=== PATIENT | female | born 1975 | race Caucasian/White ===

== ENCOUNTER 2022-01-07 21:53 | Observation (INO) ==
[2022-01-07] MEDS ORDERED: LORazepam 2 MG/1 ML VIAL IV STA (22:13)
[2022-01-07] MEDS ORDERED: ASPIRIN CHEW 324 MG PO STA (22:13)
[2022-01-07 22:16] LABS: Basophils # (auto) 0.04 K/uL (0-0.2); Basophils % (auto) 0.5 %; Eosinophils # (auto) 0.11 K/uL (0-0.50); Eosinophils % (auto) 1.3 %; Hematocrit (blood only) 37.8 % (34.1-44.9); Hemoglobin 12.9 g/dl (12.0-16.0); Immature Granulocytes # (auto) 0.03 K/uL (0.00-0.02); Immature Granulocytes % (auto) 0.3 %; Lymphocytes # (auto) 3.41 K/uL (1.2-3.4); Lymphocytes % (auto) 39.2 %; Mean Corpuscular Hemoglobin 33.1 pg (25.0-34.0); Mean Corpuscular Hgb Conc 34.1 g/dL (32.0-36.0); Mean Corpuscular Volume 96.9 fL (80.0-100.0); Mean Platelet Volume 10.1 fL (9.4-12.3); Monocytes # (auto) 0.43 K/uL (0.24-0.82); Monocytes % (auto) 4.9 %; Neutrophils # (auto) 4.69 K/uL (1.4-6.5); Neutrophils % (auto) 53.8 %; Platelet Count 295 K/uL (130-400); RDW Coefficient of Variation 12.5 % (11.5-14.5); RDW Standard Deviation 44.1 fL (36.4-46.3); White Blood Count 8.71 K/ul (4.8-10.8)
--- NOTE | 2022-01-07 22:27 | XRay Report ---
SINGLE VIEW CHEST CLINICAL HISTORY: Atypical chest pain. FINDINGS: An AP, portable, upright chest radiograph is compared to study dated 06/14/2021. The cardio mediastinal silhouette is unremarkable. The lungs and pleural spaces are clear. No pneumothorax is se en. The bony thorax is grossly intact. IMPRESSION: No active disease in the chest. ACT 112: Negative or not required by law. Electronically signed by: Germán Zhang M.D. 01/07/2022 10:25 PM
[2022-01-07 22:29] LABS: Partial Thromboplastin Ratio 0.8; Prothrombin Time 10.9 Seconds (9.0-12.0)
[2022-01-07 22:34] LABS: iSTAT Creatinine 0.7 mg/dl (0.6-1.3); iSTAT Hemoglobin 12.9 g/dl (12.0-16.0); iSTAT Ionized Calcium 1.19 mmol/l (1.12-1.32); iSTAT Potassium 3.2 mmol/L (3.3-5.0)
[2022-01-07] MEDS ORDERED: OPTIRAY 320 125ml IV ONE (22:36)
[2022-01-07 22:39] LABS: Albumin Globulin Ratio 1.5 (0.9-2); Albumin Level 4.5 gm/dl (3.4-5.0); BUN Creatinine Ratio 24.4 (10-20); Bilirubin,Total 0.6 mg/dl (0.2-1.0); Calcium 8.7 mg/dl (8.5-10.1); Creatinine Clr Calc Pharmacy 99.5 ml/min; Est GFR (African American) 104.9 ml/min; Est GFR (Non-African American) 90.5 ml/min; Globulin 3.1 gm/dl (2.5-4.0); Total Protein 7.6 gm/dl (6.0-8.3)
[2022-01-07 22:45] LABS: Troponin I High Sensitivity 3.5 pg/ml (0-14)
--- NOTE | 2022-01-07 22:48 | CT Scan Report ---
CT angio chest PE protocol CLINICAL HISTORY: PE, recent covid, CP TECHNIQUE: Multidetector row helical CT of the chest was performed with angiographic protocol. Meyers l and sagittal reformations were obtained. Coronal and sagittal MIPS were obtained from the axial jude a set and were submitted for review. Automated dose lowering techniques and/or adjustment according to patient size were utilized for this exam. CT DOSE: 636.00 mGy.cm Comparison: Comparison is made to CT chest 12/13/2021 FINDINGS: Lungs and pleura: Atelectasis versus scarring is seen in the dependent portions of the lungs. Heart and pericardium: There is cardiomegaly without evidence of pericardial effusion. Vessels: No evidence of pulmonary embolism. Mediastinum and zoe: Unremarkable. Chest wall and lower neck: Subcentimeter thyroid nodules are noted which do not require follow-up by ACR criteria. Abdomen: Hepatic steatosis is noted. Bones: Unremarkable. IMPRESSION: 1. No evidence of pulmonary embolism. 2. No evidence of pneumonia. 3. Hepatic steatosis. ACT 112: Negative or not required by law. Electronically signed by: Jama Flores M.D. 01/07/2022 10:46 PM
[2022-01-07] MEDS ORDERED: MoRPHine SULFATE 4 MG/ML 1 ML CARP\\VIAL IV STA ×2 (23:15→23:51)
[2022-01-07] MEDS ORDERED: ONDANSETRON INJ 2 MG/ML 2 ML VIAL IV STA (23:15)
[2022-01-07] MEDS ORDERED: POTASSIUM CHLORIDE 10 MEQ TABCR PO STA (23:16)
[2022-01-08] MEDS ORDERED: MoRPHine SULFATE 4 MG/ML 1 ML CARP\\VIAL IV STA (01:03)
[2022-01-08] MEDS ORDERED: oxyCODONE IR HOME PACK PO ONE (01:04)
[2022-01-08] MEDS ORDERED: HYDROmorphone INJ 1 MG/ML SYRINGE IV STA (01:12)
[2022-01-08] MEDS ORDERED: dexAMETHasone**PF** 10 MG/ML VIAL IV ONE (01:37)
--- NOTE | 2022-01-08 01:38 | Emergency Department Note ---
History of Present Illness General Chief complaint: Chest Pain Stated complaint: POSSIBLE HEART ATTACK History of Present Illness Maximum Pain Intensity: 10 This 46-year-old that had COVID a month ago presents to the ER complaining of chest pain that goes to her back today Location: Chest Quality: Painful Severity: Severe Duration: Today Timing: Today Context: Patient was concerned and came in Modifying factors: better with nothing; worse with activity No prior heart attack. There is heart disease in the family. She does not smoke. She states this feels worse than her costochondritis. Patient denies abdominal pain, leg pain or swelling, fever, chills, flulike illness. Home Medications Medication Instructions Recorded Confirmed Type linaclotide 290 mcg capsule 290 mcg PO DAILY PRN Constipation 09/23/20 01/08/22 History (Linzess) quetiapine 100 mg tablet (Seroquel) 200 mg PO HS 09/23/20 01/08/22 History vit no.95-ferrous 1 tab PO DAILY 06/15/21 01/08/22 History fumarate 28 mg-folic acid 800 mcg tablet () sumatriptan succinate 50 mg tablet 50 mg PO DIRECTED PRN Migraine 06/15/21 01/08/22 History Headache acetaminophen 500 mg tablet 1,000 mg PO DAILY PRN Pain 12/14/21 01/08/22 History dextroamphetamine-amphetamine ER 20 mg PO QAM 12/14/21 01/08/22 History 20 mg 24hr capsule,extend release famotidine 20 mg tablet 20 mg PO BID PRN Gastric Reflux 12/14/21 01/08/22 History meloxicam 7.5 mg tablet 15 mg PO QAM PRN Pain 12/14/21 01/08/22 History Allergies Allergy/AdvReac Type Severity Reaction Status Date / Time ketorolac [From Toradol] Allergy Hives Verified 01/07/22 23:30 Past Med/Surg History Medical History No acute medical problems Surgical History No pertinent past surgical history Social History Smoking Status: Never smoker Tobacco Type: E-cigarettes / Vaping Preferred Language: Pashto Feels Safe at Home: Yes Review of Systems A total of 10 systems reviewed and were otherwise negative Physical Exam Vital Signs Vital Signs - 24 hr 01/07/22 21:55 01/07/22 21:59 01/07/22 22:06 Temperature 36.7 C Temperature Source Oral Pulse Rate 109 H Pulse Rate [Right Finger] Pulse Rhythm [Right Finger] Pulse Strength [Right Finger] Respiratory Rate 24 Respiratory Effort / Characteristics Short of Breath Respiratory Depth Normal Shallow Blood Pressure 137/115 H Blood Pressure [Right Arm] Blood Pressure Mean 122 Blood Pressure Mean [Right Arm] Blood Pressure Position [Right Arm] Pulse Oximetry 97 Oxygen Delivery Method Room Air Room Air Sepsis Recent Fever Within 48 Hours No Sepsis New/Unexplained Change in Mental Status N/A Sepsis Action Taken by Nursing No Action Required Pulse Oximetry Post Tiitration 01/07/22 22:06 01/07/22 22:08 01/07/22 22:08 Temperature Temperature Source Pulse Rate Pulse Rate [Right Finger] 100 H Pulse Rhythm [Right Finger] Pulse Strength [Right Finger] Respiratory Rate 25 H Respiratory Effort / Characteristics Labored Respiratory Depth Normal Blood Pressure Blood Pressure [Right Arm] 137/96 Blood Pressure Mean Blood Pressure Mean [Right Arm] 109 Blood Pressure Position [Right Arm] Pulse Oximetry 99 98 Oxygen Delivery Method Room Air Room Air Room Air Sepsis Recent Fever Within 48 Hours Sepsis New/Unexplained Change in Mental Status Sepsis Action Taken by Nursing Pulse Oximetry Post Tiitration 98 01/07/22 23:12 01/07/22 23:45 01/08/22 00:43 Temperature Temperature Source Pulse Rate Pulse Rate [Right Finger] 93 H 101 H 91 H Pulse Rhythm [Right Finger] Regular Regular Regular Pulse Strength [Right Finger] Normal Normal Normal Respiratory Rate 20 16 20 Respiratory Effort / Characteristics Non-Labored Non-Labored Spontaneous Non-Labored Spontaneous Respiratory Depth Normal Normal Normal Blood Pressure Blood Pressure [Right Arm] 222/167 H 142/121 H 172/145 H Blood Pressure Mean Blood Pressure Mean [Right Arm] 185 128 154 Blood Pressure Position [Right Arm] Pulse Oximetry 98 96 97 Oxygen Delivery Method Room Air Room Air Room Air Sepsis Recent Fever Within 48 Hours Sepsis New/Unexplained Change in Mental Status Sepsis Action Taken by Nursing Pulse Oximetry Post Tiitration 01/08/22 01:23 Temperature Temperature Source Pulse Rate Pulse Rate [Right Finger] 87 Pulse Rhythm [Right Finger] Regular Pulse Strength [Right Finger] Normal Respiratory Rate 16 Respiratory Effort / Characteristics Non-Labored Spontaneous Respiratory Depth Normal Blood Pressure Blood Pressure [Right Arm] 132/94 Blood Pressure Mean Blood Pressure Mean [Right Arm] 106 Blood Pressure Position [Right Arm] Lying Pulse Oximetry 96 Oxygen Delivery Method Room Air Sepsis Recent Fever Within 48 Hours Sepsis New/Unexplained Change in Mental Status Sepsis Action Taken by Nursing Pulse Oximetry Post Tiitration VITALS: Vitals are noted on the nurse's note and reviewed by myself. Vital signs hypertensive GENERAL: Female, in no acute distress, nondiaphoretic, well-developed well- nourished. SKIN: The skin was without rashes, erythema, edema, or bruising. There is no tenting of the skin. Capillary reflex less than 2 seconds. HEAD: Normocephalic atraumatic. EARS: External auditory canals clear, EYES: Pupils equal round and reactive to light and accommodation. Conjunctivae without injection, sclerae without icterus. Extraocular movements intact. NOSE: Patent, turbinates without inflammation or discharge. MOUTH: Mucous membranes moist. Pharynx without erythema or exudate. Uvula midline. Airway patent. Tongue does not deviate. NECK: Supple without nuchal rigidity. No lymphadenopathy. No thyromegaly. Cervical spine is nontender. No JVD. HEART: Regular rate and rhythm LUNGS: Clear to auscultation bilaterally without wheezes, rales or rhonchi. No retractions or accessory muscle use. ABDOMEN: Positive bowel sounds x 4. Normal tympanic percussion. Soft, nontender, without masses or organomegaly. Lazo sign negative. No guarding or rebound tenderness. No CVA tenderness MUSCULOSKELETAL: No muscle atrophy, erythema, or edema noted. NEURO: Patient was alert and oriented to person place and time. Normal sensation to light and sharp touch. No focal neurological deficits. Course Administered Medications Discontinued Medications Aspirin (Aspirin Chew 324 Mg) 324 mg PO NOW STA Stop: 01/07/22 22:14 Last Admin: 01/07/22 22:24 Dose: 324 mg Documented By: MES Hydromorphone HCl (Hydromorphone Inj 1 Mg/Ml Syringe) 1 mg IV NOW STA Stop: 01/08/22 01:13 Last Admin: 01/08/22 01:17 Dose: 1 mg Documented By: TW Ioversol (Optiray 320 125ml) 120 ml IV ONCE ONE Stop: 01/07/22 22:37 Last Admin: 01/07/22 22:34 Dose: 120 ml Documented By: SHAWN Lorazepam (Lorazepam 2 Mg/1 Ml Vial) 1 mg IV NOW STA; Protocol Stop: 01/07/22 22:14 Last Admin: 01/07/22 22:25 Dose: 1 mg Documented By: NADEGE Morphine Sulfate (Morphine Sulfate 4 Mg/Ml 1 Ml Carp\Vial) 4 mg IV NOW STA Stop: 01/07/22 23:16 Last Admin: 01/07/22 23:23 Dose: 4 mg Documented By: TW Morphine Sulfate (Morphine Sulfate 4 Mg/Ml 1 Ml Carp\Vial) 4 mg IV NOW STA Stop: 01/07/22 23:52 Last Admin: 01/08/22 00:02 Dose: 4 mg Documented By: TW Ondansetron HCl (Ondansetron Inj 2 Mg/Ml 2 Ml Vial) 4 mg IV NOW STA Stop: 01/07/22 23:16 Last Admin: 01/07/22 23:23 Dose: 4 mg Documented By: TW Potassium Chloride (Potassium Chloride 10 Meq Tabcr) 40 meq PO NOW STA Stop: 01/07/22 23:17 Last Admin: 01/07/22 23:23 Dose: 40 meq Documented By: LACHO Medical Decision Making Medical Records Attestation: I reviewed the patient's medical records. Home Medications Current Medication List: was personally reviewed by me Laboratory Data Attestation: I reviewed the patient's lab results. Result diagrams: 01/07/22 22:03 01/07/22 22:03 Lab Results 01/07/22 01/07/22 01/07/22 Range/Units 22:03 22:03 22:03 WBC 8.71 (4.8-10.8) K/ul RBC 3.90 L (3.93-5.22) M/uL Hgb 12.9 (12.0-16.0) g/dl POC Hgb (12.0-16.0) g/dl Hct 37.8 (34.1-44.9) % POC Hct (37-47) % MCV 96.9 (80.0-100.0) fL MCH 33.1 (25.0-34.0) pg MCHC 34.1 (32.0-36.0) g/dL RDW Std Deviation 44.1 (36.4-46.3) fL RDW Coeff of Pattie 12.5 (11.5-14.5) % Plt Count 295 (130-400) K/uL MPV 10.1 (9.4-12.3) fL Immature Gran % (Auto) 0.3 % Neut % (Auto) 53.8 % Lymph % (Auto) 39.2 % Ballard % (Auto) 4.9 % Eos % (Auto) 1.3 % Baso % (Auto) 0.5 % Neut # (Auto) 4.69 (1.4-6.5) K/uL Lymph # (Auto) 3.41 H (1.2-3.4) K/uL Ballard # (Auto) 0.43 (0.24-0.82) K/uL Eos # (Auto) 0.11 (0-0.50) K/uL Baso # (Auto) 0.04 (0-0.2) K/uL Immature Gran # (Auto) 0.03 H (0.00-0.02) K/uL PT 10.9 (9.0-12.0) Seconds INR 1.0 (0.9-1.1) APTT 23.0 (21.0-31.0) Seconds PTT Ratio 0.8 POC Sodium (135-144) mmol/L Sodium 138 (136-145) mmol/L POC Potassium (3.3-5.0) mmol/L Potassium 3.0 L (3.5-5.1) mmol/L POC Chloride (101-112) mmol/L Chloride 105 (98-107) mmol/L Carbon Dioxide 26 (21-32) mmol/L POC Total CO2 (24-31) mmol/L Anion Gap 7 (3-11) POC Anion Gap (16-25) mmol/L POC BUN (7-18) mg/dl BUN 19 (6-23) mg/dl Creatinine 0.78 (0.6-1.2) mg/dl POC Creatinine (0.6-1.3) mg/dl Est Cr Clr Drug Dosing 99.5 ml/min Est GFR ( Amer) 104.9 ml/min Est GFR (Non-Af Amer) 90.5 ml/min BUN/Creatinine Ratio 24.4 H (10-20) Glucose 87 (70-99(Fasting)) mg/dl POC Glucose (other) (70-99) mg/dl Calcium 8.7 (8.5-10.1) mg/dl POC Ioniz Calcium Daphne (1.12-1.32) mmol/l Magnesium (1.7-2.4) mg/dl Total Bilirubin 0.6 (0.2-1.0) mg/dl AST 35 (13-39) U/L ALT 38 (7-52) U/L Alkaline Phosphatase 79 (34-104) U/L Troponin I High Sens 3.5 (0-14) pg/ml Total Protein 7.6 (6.0-8.3) gm/dl Albumin 4.5 (3.4-5.0) gm/dl Globulin 3.1 (2.5-4.0) gm/dl Albumin/Globulin Ratio 1.5 (0.9-2) 01/07/22 01/07/22 01/08/22 Range/Units 22:03 22:21 00:07 WBC (4.8-10.8) K/ul RBC (3.93-5.22) M/uL Hgb (12.0-16.0) g/dl POC Hgb 12.9 (12.0-16.0) g/dl Hct (34.1-44.9) % POC Hct 38 (37-47) % MCV (80.0-100.0) fL MCH (25.0-34.0) pg MCHC (32.0-36.0) g/dL RDW Std Deviation (36.4-46.3) fL RDW Coeff of Pattie (11.5-14.5) % Plt Count (130-400) K/uL MPV (9.4-12.3) fL Immature Gran % (Auto) % Neut % (Auto) % Lymph % (Auto) % Ballard % (Auto) % Eos % (Auto) % Baso % (Auto) % Neut # (Auto) (1.4-6.5) K/uL Lymph # (Auto) (1.2-3.4) K/uL Ballard # (Auto) (0.24-0.82) K/uL Eos # (Auto) (0-0.50) K/uL Baso # (Auto) (0-0.2) K/uL Immature Gran # (Auto) (0.00-0.02) K/uL PT (9.0-12.0) Seconds INR (0.9-1.1) APTT (21.0-31.0) Seconds PTT Ratio POC Sodium 140 (135-144) mmol/L Sodium (136-145) mmol/L POC Potassium 3.2 L (3.3-5.0) mmol/L Potassium (3.5-5.1) mmol/L POC Chloride 103 (101-112) mmol/L Chloride (98-107) mmol/L Carbon Dioxide (21-32) mmol/L POC Total CO2 25 (24-31) mmol/L Anion Gap (3-11) POC Anion Gap 17.0 (16-25) mmol/L POC BUN 19 H (7-18) mg/dl BUN (6-23) mg/dl Creatinine (0.6-1.2) mg/dl POC Creatinine 0.7 (0.6-1.3) mg/dl Est Cr Clr Drug Dosing ml/min Est GFR ( Amer) ml/min Est GFR (Non-Af Amer) ml/min BUN/Creatinine Ratio (10-20) Glucose (70-99(Fasting)) mg/dl POC Glucose (other) 86 (70-99) mg/dl Calcium (8.5-10.1) mg/dl POC Ioniz Calcium Daphne 1.19 (1.12-1.32) mmol/l Magnesium 1.7 (1.7-2.4) mg/dl Total Bilirubin (0.2-1.0) mg/dl AST (13-39) U/L ALT (7-52) U/L Alkaline Phosphatase (34-104) U/L Troponin I High Sens 3.6 (0-14) pg/ml Total Protein (6.0-8.3) gm/dl Albumin (3.4-5.0) gm/dl Globulin (2.5-4.0) gm/dl Albumin/Globulin Ratio (0.9-2) Imaging Data Attestation: I personally reviewed and interpreted this imaging study as fo llows: Radiologist's Impression: Chest X-Ray 01/07/22 22:01 SINGLE VIEW CHEST CLINICAL HISTORY: Atypical chest pain. FINDINGS: An AP, portable, upright chest radiograph is compared to study dated 06/14/2021. The cardiomediastinal silhouette is unremarkable. The lungs and pleural spaces are clear. No pneumothorax is seen. The bony thorax is grossly intact. IMPRESSION: No active disease in the chest. ACT 112: Negative or not required by law. Electronically signed by: Germán Zhang M.D. 01/07/2022 10:25 PM Chest CTA 01/07/22 22:13 CT angio chest PE protocol CLINICAL HISTORY: PE, recent covid, CP TECHNIQUE: Multidetector row helical CT of the chest was performed with angiographic protocol. Coronal and sagittal reformations were obtained. Coronal and sagittal MIPS were obtained from the axial data set and were submitted for review. Automated dose lowering techniques and/or adjustment according to patient size were utilized for this exam. CT DOSE: 636.00 mGy.cm Comparison: Comparison is made to CT chest 12/13/2021 FINDINGS: Lungs and pleura: Atelectasis versus scarring is seen in the dependent portions of the lungs. Heart and pericardium: There is cardiomegaly without evidence of pericardial effusion. Vessels: No evidence of pulmonary embolism. Mediastinum and zoe: Unremarkable. Chest wall and lower neck: Subcentimeter thyroid nodules are noted which do not require follow-up by ACR criteria. Abdomen: Hepatic steatosis is noted. Bones: Unremarkable. IMPRESSION: 1. No evidence of pulmonary embolism. 2. No evidence of pneumonia. 3. Hepatic steatosis. ACT 112: Negative or not required by law. Electronically signed by: Jama Flores M.D. 01/07/2022 10:46 PM [facility] Narrative Prior records/ancillary studies reviewed. Triage Nursing notes reviewed. Additional history obtained from nursing. The patient's history was concerning for chest pain. Differential diagnosis: Etiologies such as cardiac ischemia, aortic dissection, pulmonary embolism, pneumonia, pneumothorax, musculoskeletal, infections, pericarditis, myocarditis, esophageal rupture, gastrointestinal, as well as others were entertained. Physical examination: As above. ER treatment provided: An order was placed for continuous cardiac monitoring. The monitor shows a rate of 60-1 50 with a sinus rhythm. Ativan, aspirin, morphine, Dilaudid, Decadron, IV fluids On reassessment the patient felt better. Diagnostic interpretation by me: The electrocardiogram was negative for pathologic change. Ordered for chest pain EKG: Normal sinus, normal intervals, no acute ST-T wave changes. Impression sinus tachycardia 105 interpreted by myself I think arrhythmia is unlikely. EKG shows normal sinus rhythm with no interval abnormalities such as QT prolongation or WPW. There are no findings to suggest Brugada syndrome. Cardiac monitoring in the emergency department reveals no tachycardic or bradycardic dysrhythmia. Hypertrophic cardiomyopathy was considered but there are no clear historical elements pointing toward this. EKG is not suggestive. The QRS voltage is not extremely large and there are no suggestive Q waves. The labs revealed 2 negative troponins Imaging studies: As above HEART SCORE: Hx: high/mod/low suspicion: 0 ECG: ST depression/nonspecific changes/normal: 0 Age: Greater than 65/45-64/less than 45: 1 Risk factors: (Hypertension, hyperlipidemia, diabetes, coronary disease, tobacco use, cocaine use): 0 Troponin: Greater than 2 times normal limits/1-2 times normal limits/normal: 0 Total: 1 Consultation: A consultation was placed with the hospitalist. The case was discussed and diagnostics were reviewed. The patient was evaluated in the ER for further treatment. Exam and history seem consistent with chest pain unlikely be cardiac in etiology with intractable chest pain. Patient's had multiple rounds of pain meds she still in severe pain. Medicine is consulted. She will be evaluated for admission. By the evaluation outlined above emergent etiologies such as cardiac ischemia, aortic dissection, pulmonary embolism, pneumonia, pneumothorax, infections, pericarditis, myocarditis, gastrointestinal, as well as others were deemed relatively unlikely. The pt informed about the findings as listed above. All questions were answered. The chart was completed utilizing [employer] Speech voice recognition software. Grammatical errors, random word insertions, pronoun errors, and incomplete sentences are an occassional consequence of this system due to software limitations, ambient noise, and hardware issues. Any formal questions or concerns about the content, text, or information contained within the body of this dictation should be directly addressed to the physician payroll and benefits assistant for clarification. Impression & Plan Chest pain Discharge Plan Visit Data Chief Complaint: Chest Pain Stated Complaint: POSSIBLE HEART ATTACK ED Provider: Ricky Camp ED Midlevel Provider: Carmen Alejandra Discharge Problem: Chest pain Patient Disposition: Being Evaluated by Hospitalist Condition: Good Forms Stand Alone Forms: [facility] Prescriptions Prescriptions: No Action sumatriptan succinate 50 mg tablet 50 mg PO DIRECTED MDD 2 DOSES/24 HOURS PRN (Reason: Migraine Headache) Rx Instructions: TAKE AT ONSET OF FOSTER, MAY REPEAT EVERY 2 HOURS IF NEEDED, MAX 2 DOSES IN 24 HOURS. PNV cmb#95-ferrous fumarate-FA [] 28 mg iron- 800 mcg Tablet 1 tab PO DAILY quetiapine [Seroquel] 100 mg tablet 200 mg PO HS Linzess 290 mcg capsule 290 mcg PO DAILY PRN (Reason: Constipation) dextroamphetamine-amphetamine 20 mg capsule,extended release 24hr 20 mg PO QAM acetaminophen [Tylenol Ex Str Rapid Release] 500 mg Tablet 1,000 mg PO DAILY PRN (Reason: Pain) meloxicam 7.5 mg tablet 15 mg PO QAM PRN (Reason: Pain) famotidine 20 mg tablet 20 mg PO BID PRN (Reason: Gastric Reflux) Referrals Referrals: Apolinar Rice MD [Primary Care Provider] -
[2022-01-08] MEDS ORDERED: ONDANSETRON INJ 2 MG/ML 2 ML VIAL ONE (02:00)
[2022-01-08] MEDS ORDERED: ONDANSETRON INJ 2 MG/ML 2 ML VIAL IV STA (02:27)
[2022-01-08] MEDS ORDERED: ONDANSETRON INJ 2 MG/ML 2 ML VIAL IV PRN (05:12)
[2022-01-08] MEDS ORDERED: FAMOTIDINE 20 MG TAB PO PRN (05:12)
[2022-01-08] MEDS ORDERED: SUMAtriptan succinate 50 MG TAB PO PRN (05:12)
[2022-01-08] MEDS ORDERED: ACETAMINOPHEN 325 MG TAB PO PRN (05:12)
[2022-01-08] MEDS ORDERED: NITROGLYCERIN SL 0.4 MG/TAB TAB SL PRN (05:12)
[2022-01-08] MEDS ORDERED: LINACLOTIDE 145 MCG CAPSULE PO PRN (05:45)
[2022-01-08] MEDS: MoRPHine SULFATE 4 MG/ML 1 ML CARP\\VIAL IV PRN ×3 (06:00→12:50)
[2022-01-08 06:54] LABS: Basophils # (auto) 0.02 K/uL (0-0.2); Basophils % (auto) 0.2 %; Eosinophils # (auto) 0.01 K/uL (0-0.50); Eosinophils % (auto) 0.1 %; Hematocrit (blood only) 36.1 % (34.1-44.9); Hemoglobin 12.3 g/dl (12.0-16.0); Immature Granulocytes # (auto) 0.03 K/uL (0.00-0.02); Immature Granulocytes % (auto) 0.4 %; Lymphocytes # (auto) 0.92 K/uL (1.2-3.4); Lymphocytes % (auto) 11.1 %; Mean Corpuscular Hemoglobin 32.5 pg (25.0-34.0); Mean Corpuscular Hgb Conc 34.1 g/dL (32.0-36.0); Mean Corpuscular Volume 95.5 fL (80.0-100.0); Mean Platelet Volume 10.2 fL (9.4-12.3); Monocytes # (auto) 0.12 K/uL (0.24-0.82); Monocytes % (auto) 1.5 %; Neutrophils # (auto) 7.17 K/uL (1.4-6.5); Neutrophils % (auto) 86.7 %; Platelet Count 292 K/uL (130-400); RDW Coefficient of Variation 12.5 % (11.5-14.5); RDW Standard Deviation 43.8 fL (36.4-46.3); Red Blood Count 3.78 M/uL (3.93-5.22); White Blood Count 8.27 K/ul (4.8-10.8)
--- NOTE | 2022-01-08 07:02 | History and Physical Report ---
DATE OF ADMISSION: 01/08/2022. CHIEF COMPLAINT: Chest pain. HISTORY OF PRESENT ILLNESS: This is a 46-year-old female with past medical history significant for chronic constipation, migraine variant, generalized anxiety disorder, panic disorder, chronic insomnia, ADHD, tobacco abuse, who presents with chest pain. The patient states that since the morning she is having severe chest pain all over the chest radiating to the back, shoulder, neck, associated with some nausea and had one episode of vomiting in the ER. In the ER, she received several pain medications, still the pain is significant. When she is getting this pain, she is feeling short of breath. She had COVID on 12/15/2021, but she was not hospitalized, but felt very weak. Has some mild headache. No blurred visions, no earache, no runny nose, no sore throat. Has some occasional cough. No abdominal pain. Somewhat constipated. Normal bladder movements. Otherwise, ambulates okay. Currently, resting comfortably and hemodynamically stable. ALLERGIES: TORADOL. PAST MEDICAL HISTORY: As mentioned above. PAST SURGICAL HISTORY: , bilateral elbow arthroscopy, laparoscopic exploration of common duct. MEDICATIONS: The patient is on Tylenol extended release 1000 mg p.o. daily p.r.n., Adderall XR 20 mg p.o. a.m., famotidine 20 mg p.o. b.i.d. p.r.n., Linzess 290 mcg p.o. daily p.r.n., meloxicam 15 mg p.o. a.m. p.r.n., one tablet p.o. daily, Seroquel 200 mg p.o. at bedtime, sumatriptan p.r.n. FAMILY HISTORY: Significant for father had COPD, mother had COPD, sister has hypertension. SOCIAL HISTORY: Former smoker, quit in April 2021. Smoked quarter pack a day. No alcohol use. No drug use. REVIEW OF SYSTEMS: As per HPI. Rest of the review of systems is negative. PHYSICAL EXAMINATION: GENERAL: The patient is obese, not in acute distress. VITAL SIGNS: Temperature 36.7, pulse 96, respiratory rate 20, blood pressure 137/105, oxygen 96% on room air. HEENT: Pupils equal, round, and reactive to light. Oral mucosa moist. NECK: No JVD. No neck masses. CARDIOVASCULAR: S1 and S2 heard. Regular rate and rhythm. No murmur, no gallop. RESPIRATORY SYSTEM: Normal AP diameter. No accessory muscle use. No wheezing, no crackles. ABDOMEN: Soft, bowel sounds present, nontender, no distention. CENTRAL NERVOUS SYSTEM: Cranial nerves II-XII grossly intact, nonfocal. EXTREMITIES: No edema, no erythema. LABORATORY DATA: WBC 8.7, hemoglobin 12.9, hematocrit 37.8, platelets 295. PT 10.9, INR 1, APTT 23. Sodium 138, potassium 3, chloride 105, bicarbonate 26, BUN 19, creatinine 0.7, serum glucose 87, calcium 8.7, magnesium 1.7, total bilirubin 0.6, AST 35, ALT 38, alkaline phosphatase 79. Troponin 1 high sensitivity 3.6. IMAGING DATA: CT of the chest, no acute findings, hepatic steatosis. EKG: Sinus tachycardia at a rate of 105, no acute ST changes seen. ASSESSMENT AND PLAN: This is a 46-year-old female who presents with chest pain. 1. Chest pain: Rule out acute coronary syndrome. Risk factor of obesity. History of tobacco use. Initial workup negative. Will observe in the [facility] tele. Will follow serial enzymes, echo. Keep her n.p.o. until seen by cardiology. 2. History of constipation: Continue her home medication of Linzess. 3. Attention deficit hyperactivity disorder: Continue her Adderall. 4. Panic disorder and generalized anxiety disorder: On Seroquel. 5. Migraine: On sumatriptan p.r.n. 6. Deep venous thrombosis prophylaxis: Sequential compression devices. DISPOSITION: Observation in [facility] tele. PT/OT prior to discharge. Social service to help with discharge planning. Level 1 full code. Job ID: [id number] [facility]
[2022-01-08 07:25] LABS: BUN Creatinine Ratio 26.4 (10-20); Calcium 9.1 mg/dl (8.5-10.1); Creatinine Clr Calc Pharmacy 107.8 ml/min; Est GFR (African American) 115.6 ml/min; Est GFR (Non-African American) 99.7 ml/min; Magnesium 1.9 mg/dl (1.7-2.4); Troponin I High Sensitivity 3.7 pg/ml (0-14)
[2022-01-08] MEDS ORDERED: ACETAMINOPHEN 1000 MG/100 ML IV IV ONE (08:37)
[2022-01-08] MEDS ORDERED: PERFLUTREN LIPID MICROSPHERE (DEFINITY) IV ONE (08:44)
--- NOTE | 2022-01-08 09:44 | Electrocardiogram Report ---
Test Reason : Blood Pressure : / mmHG Vent. Rate : 105 BPM Atrial Rate : 105 BPM P-R Int : 138 ms QRS Dur : 082 ms QT Int : 344 ms P-R-T Axes : 020 014 031 degrees QTc Int : 454 ms Sinus tachycardia Otherwise normal ECG When compared with ECG of 13-DEC-2021 19:59, Criteria for Septal infarct are no longer Present Confirmed by Camden Romero ([id number]) on 01/08/2022 9:44:32 AM Referred By: REFERRED SELF Confirmed By:Camden Romero
[2022-01-08] MEDS: AMPHETAMINE ASP/SULF/DEXTRAMPH ER 20 MG CAP PO SCH (09:54)
[2022-01-08] MEDS: PRENATAL VITAMIN 1 TAB PO SCH (09:54)
[2022-01-08] MEDS ORDERED: ATROPINE SULFATE 0.1 MG/ML 10ML SYR IV ONE ×2 (11:31→11:32)
[2022-01-08] MEDS ORDERED: DOBUTamine HCL 12.5 MG/ML 20 ML VIAL IV ONE (11:32)
[2022-01-08] MEDS ORDERED: METOPROLOL TARTRATE 1 MG/ML VIAL IV ONE (11:32)
--- NOTE | 2022-01-08 12:22 | Cardiology Consultation ---
Date of Consultation January 08, 2022 Assessment & Plan (1) Costochondritis: (2) Chest pain: Plan Her ischemic work-up was unremarkable with a negative dobutamine stress echocardiogram. Resting echocardiogram is also unremarkable. Given the fact that her pain is reproducible I do believe she is suffering from costochondritis and would likely benefit from NSAIDs and pain management evaluation for possible injection. No further cardiac testing intervention is necessary at this time. No cardiac follow-up is warranted at this time. Okay to discharge to home from a cardiac standpoint. History of Present Illness Reason for Consultation: Chest pain Requesting Physician: [facility] hospitalist group Attending Physician: Sebastian Cutler MD History of Present Illness Ms. Castro is a 46-year-old woman who presented to [facility] on 01/07/2022 with complaints of chest pain. She states that she has been having this chest pain for years. She has previously been diagnosed with pleurisy and costochondritis. On the day of presentation she states that her pain was worse than normal and did not subside so she came in the emergency department. She describes the pain as intense, 10 out of 10, sharp stabbing pain across her left sternal border with radiation into her back. She has been requiring significant pain medication to control her pain but states that the pain is still almost unbearable. Initial ischemic work-up was unremarkable and she was admitted to telemetry. Allergies Allergy/AdvReac Type Severity Reaction Status Date / Time ketorolac [From Toradol] Allergy Hives Verified 01/07/22 23:30 Home Medications Medication Instructions Recorded Confirmed Type linaclotide 290 mcg capsule 290 mcg PO DAILY PRN Constipation 09/23/20 01/08/22 History (Linzess) quetiapine 100 mg tablet (Seroquel) 200 mg PO HS 09/23/20 01/08/22 History vit no.95-ferrous 1 tab PO DAILY 06/15/21 01/08/22 History fumarate 28 mg-folic acid 800 mcg tablet () sumatriptan succinate 50 mg tablet 50 mg PO DIRECTED PRN Migraine 06/15/21 01/08/22 History Headache acetaminophen 500 mg tablet 1,000 mg PO DAILY PRN Pain 12/14/21 01/08/22 History dextroamphetamine-amphetamine ER 20 mg PO QAM 12/14/21 01/08/22 History 20 mg 24hr capsule,extend release famotidine 20 mg tablet 20 mg PO BID PRN Gastric Reflux 12/14/21 01/08/22 History meloxicam 7.5 mg tablet 15 mg PO QAM PRN Pain 12/14/21 01/08/22 History Patient History Medical History No acute medical problems Surgical History No pertinent past surgical history Social History Smoking Status: Former smoker Tobacco Type: E-cigarettes / Vaping Hx Alcohol Use: No Hx Substance Use: No Preferred Language: Thai Communication Ability: Effective Senior Application Programmer Required: No Beliefs That Will Affect Care: None Current Living Situation: Family Current Living Situation Comment: with high-school aged children and children's father How many Children do You have: 2 Feels Safe at Home: Yes Safety Concerns: Feels Safe At This Time Assistive Devices: None Assistive Devices Comment: readers Review of Systems Review of Systems: All systems reviewed & are unremarkable except as noted in HPI & below Physical Exam Physical Exam: Physical Exam: General: Awake, alert and oriented x 3. No acute distress. HEENT: Normocephalic, atraumatic. Pupils equal, round and reactive to light and accommodation. Extraocular muscles are intact. Anicteric sclera. Moist mucous membranes. Neck: No JVD. No bruit. Cardiovascular: Regular. No S-4. Normal S-1 and S-2. No S-3. No murmurs, rubs or gallops. Pulmonary: Clear to auscultation bilaterally. No rales, rhonchi, or wheezing. Abdomen: Bowel sounds x 4, soft. No rebound, guarding or tenderness. No organomegaly. Extremities: No clubbing, cyanosis or edema. +2 pedal pulses bilaterally. Skin: Warm and dry. Musculoskeletal: Direct palpation of the head of her fourth rib reproduces the discomfort Results & Data ([place]) Vital Signs (Past 12 Hours) Vital Signs Temp Pulse Pulse Resp BP Pulse Ox Pulse Ox 01/08/22 10:57 36.5 C 70 16 144/98 H 96 01/08/22 08:00 79 01/08/22 07:29 36.6 C 80 18 137/86 96 01/08/22 06:48 78 01/08/22 06:29 36.5 C 80 18 142/94 H 98 01/08/22 05:12 36.5 C 80 18 142/94 H 98 01/08/22 05:12 98 01/08/22 03:04 83 16 120/86 96 01/08/22 02:34 96 H 20 137/105 H 96 01/08/22 01:23 87 16 132/94 96 01/08/22 00:43 91 H 20 172/145 H 97 O2 Del Method O2 Del Method 01/08/22 10:57 Room Air 01/08/22 08:00 01/08/22 07:29 Room Air 01/08/22 06:48 01/08/22 06:29 Room Air 01/08/22 05:12 Room Air 01/08/22 05:12 Room Air 01/08/22 03:04 01/08/22 02:34 Room Air 01/08/22 01:23 Room Air 01/08/22 00:43 Room Air (1) Chest pain Chest pain type: unspecified Qualified Code(s): R07.9 - Chest pain, unspecified
[2022-01-08] MEDS: NAPROXEN 250 MG TAB PO SCH ×2 (14:16→20:50)
--- NOTE | 2022-01-08 17:15 | Hospitalist Progress Note ---
Date of Service January 08, 2022 Assessment & Plan (1) Chest pain: (2) Costochondritis: Plan: This is a 46-year-old female who presents with chest pain. 1. Chest pain: Admitted to Rule out acute coronary syndrome. Risk factor of obesity. History of tobacco use. Initial workup negative. observed in the med tele. serial enzymes negative Echo Normal LV chamber size and wall thickness. LV systolic function EF 60 to 65%. No segmental LV wall motion abnormalities are noted. Grade 1 diastolic dysfunction. No significant valvular pathology. The interatrial septum is intact with no evidence for an atrial septal defect. Injection of contrast documented no interatrial shunt. Dobutamine stress echo Nonischemic dobutamine stress echo. No arrhythmias. Normal heart rate and blood pressure response to exercise. Chest discomfort was not reproduced at peak heart rate. Cardiology consulted Her ischemic work-up was unremarkable with a negative dobutamine stress echocardiogram. Resting echocardiogram is also unremarkable. Given the fact that her pain is reproducible I do believe she is suffering from costochondritis and would likely benefit from NSAIDs and pain management ev aluation for possible injection. No further cardiac testing intervention is necessary at this time. No cardiac follow-up is warranted at this time. Okay to discharge to home from a cardiac standpoint. ESR, CRP not elevated 01/08 - patient is relieved that her chest pain is not from cardiac cause Reports having ongoing chest pain for some time, on and off Continues to be uncomfortable and requires pain medications. Discussed pain management consult, which was placed She reports that she takes NSAIDs at home, however with not much benefit. NSAIDs ordered as well Reports using prednisone from PCP when chest pain increased Reports opioids helped somewhat, more than other pain meds. Discussed anxiety, and possibility of this contributing to her chest pain, she does follow-up with psychiatry as outpt. We will discuss with psychiatry here as well to see if they can help with management 2. History of constipation: Continue her home medication of Linzess. 3. Attention deficit hyperactivity disorder: Continue her Adderall. 4. Panic disorder and generalized anxiety disorder: On Seroquel. Consult placed, as above. 5. Migraine: On sumatriptan p.r.n. DVT prophylaxis: SCDs DISPOSITION: Observation in med tele. Code: full code Admission and Anticipated Discharge Date Admission Date: January 08, 2022 Subjective Pt seen in follow up of chest pain Seen by cardiology, all testing negative for cardiac cause Currently sitting up in bed, not in acute distress, however continues to have chest pain Reports chest pain has been ongoing for some time Currently using NSAIDs at home, does not seem to be improving Reports getting prednisone from PCP when chest pain increased Reports some improvement with opiates No fevers, chills, shortness of breath, dizziness, lightheadedness, nausea vomiting, abdominal pain Review of Systems Review of Systems: All systems reviewed & are unremarkable except as noted in Subjective Physical Exam Physical Exam: GENERAL: obese F, not in acute distress. HEENT: NC/AT, EOMI, Pupils equal, round, and reactive to light. Oral mucosa moist. NECK: No JVD. No neck masses. CARDIOVASCULAR: S1 and S2 heard. Regular rate and rhythm. No murmur, no gallop. RESPIRATORY SYSTEM: Normal AP diameter. No accessory muscle use. No wheezing, no crackles. ABDOMEN: Soft, bowel sounds present, nontender, no distention. NEURO:Awake alert, able to answer questions appropriately, no facial asymmetry, moves extremities EXTREMITIES: No edema, no erythema. Results & Data Results & Data ([facility]) Vital Signs (Past 12 Hours) Vital Signs Temp Pulse Pulse Resp BP Pulse Ox O2 Del Method 01/08/22 14:50 37.0 C 84 16 118/77 96 Room Air 01/08/22 14:46 77 01/08/22 10:57 36.5 C 70 16 144/98 H 96 Room Air 01/08/22 08:00 79 01/08/22 07:29 36.6 C 80 18 137/86 96 Room Air 01/08/22 06:48 78 01/08/22 06:29 36.5 C 80 18 142/94 H 98 Room Air Laboratory Results 01/08/22 01/08/22 01/08/22 Range/Units 10:58 06:35 06:35 WBC (4.8-10.8) K/ul RBC (3.93-5.22) M/uL Hgb (12.0-16.0) g/dl POC Hgb (12.0-16.0) g/dl Hct (34.1-44.9) % POC Hct (37-47) % MCV (80.0-100.0) fL MCH (25.0-34.0) pg MCHC (32.0-36.0) g/dL RDW Std Deviation (36.4-46.3) fL RDW Coeff of Pattie (11.5-14.5) % Plt Count (130-400) K/uL MPV (9.4-12.3) fL Immature Gran % (Auto) % Neut % (Auto) % Lymph % (Auto) % Esmeralda % (Auto) % Eos % (Auto) % Baso % (Auto) % Neut # (Auto) (1.4-6.5) K/uL Lymph # (Auto) (1.2-3.4) K/uL Esmeralda # (Auto) (0.24-0.82) K/uL Eos # (Auto) (0-0.50) K/uL Baso # (Auto) (0-0.2) K/uL Immature Gran # (Auto) (0.00-0.02) K/uL ESR 13 (0-20) mm/hr PT (9.0-12.0) Seconds INR (0.9-1.1) APTT (21.0-31.0) Seconds PTT Ratio POC Sodium (135-144) mmol/L Sodium (136-145) mmol/L POC Potassium (3.3-5.0) mmol/L Potassium (3.5-5.1) mmol/L POC Chloride (101-112) mmol/L Chloride (98-107) mmol/L Carbon Dioxide (21-32) mmol/L POC Total CO2 (24-31) mmol/L Anion Gap (3-11) POC Anion Gap (16-25) mmol/L POC BUN (7-18) mg/dl BUN (6-23) mg/dl Creatinine (0.6-1.2) mg/dl POC Creatinine (0.6-1.3) mg/dl Est Cr Clr Drug Dosing ml/min Est GFR ( Amer) ml/min Est GFR (Non-Af Amer) ml/min BUN/Creatinine Ratio (10-20) Glucose (70-99(Fasting)) mg/dl POC Glucose (other) (70-99) mg/dl Calcium (8.5-10.1) mg/dl POC Ioniz Calcium Daphne (1.12-1.32) mmol/l Magnesium (1.7-2.4) mg/dl Total Bilirubin (0.2-1.0) mg/dl AST (13-39) U/L ALT (7-52) U/L Alkaline Phosphatase (34-104) U/L Troponin I High Sens < 2.3 (0-14) pg/ml C-Reactive Protein < 0.50 (0-0.5) mg/dl Total Protein (6.0-8.3) gm/dl Albumin (3.4-5.0) gm/dl Globulin (2.5-4.0) gm/dl Albumin/Globulin Ratio (0.9-2) SARS-CoV-2, RNA, NAAT (NEGATIVE) 01/08/22 01/08/22 01/08/22 Range/Units 06:35 06:35 01:41 WBC 8.27 (4.8-10.8) K/ul RBC 3.78 L (3.93-5.22) M/uL Hgb 12.3 (12.0-16.0) g/dl POC Hgb (12.0-16.0) g/dl Hct 36.1 (34.1-44.9) % POC Hct (37-47) % MCV 95.5 (80.0-100.0) fL MCH 32.5 (25.0-34.0) pg MCHC 34.1 (32.0-36.0) g/dL RDW Std Deviation 43.8 (36.4-46.3) fL RDW Coeff of Pattie 12.5 (11.5-14.5) % Plt Count 292 (130-400) K/uL MPV 10.2 (9.4-12.3) fL Immature Gran % (Auto) 0.4 % Neut % (Auto) 86.7 % Lymph % (Auto) 11.1 % Esmeralda % (Auto) 1.5 % Eos % (Auto) 0.1 % Baso % (Auto) 0.2 % Neut # (Auto) 7.17 H (1.4-6.5) K/uL Lymph # (Auto) 0.92 L (1.2-3.4) K/uL Esmeralda # (Auto) 0.12 L (0.24-0.82) K/uL Eos # (Auto) 0.01 (0-0.50) K/uL Baso # (Auto) 0.02 (0-0.2) K/uL Immature Gran # (Auto) 0.03 H (0.00-0.02) K/uL ESR (0-20) mm/hr PT (9.0-12.0) Seconds INR (0.9-1.1) APTT (21.0-31.0) Seconds PTT Ratio POC Sodium (135-144) mmol/L Sodium 135 L (136-145) mmol/L POC Potassium (3.3-5.0) mmol/L Potassium 4.0 D (3.5-5.1) mmol/L POC Chloride (101-112) mmol/L Chloride 103 (98-107) mmol/L Carbon Dioxide 25 (21-32) mmol/L POC Total CO2 (24-31) mmol/L Anion Gap 7 (3-11) POC Anion Gap (16-25) mmol/L POC BUN (7-18) mg/dl BUN 19 (6-23) mg/dl Creatinine 0.72 (0.6-1.2) mg/dl POC Creatinine (0.6-1.3) mg/dl Est Cr Clr Drug Dosing 107.8 ml/min Est GFR ( Amer) 115.6 ml/min Est GFR (Non-Af Amer) 99.7 ml/min BUN/Creatinine Ratio 26.4 H (10-20) Glucose 136 H (70-99(Fasting)) mg/dl POC Glucose (other) (70-99) mg/dl Calcium 9.1 (8.5-10.1) mg/dl POC Ioniz Calcium Daphne (1.12-1.32) mmol/l Magnesium 1.9 (1.7-2.4) mg/dl Total Bilirubin (0.2-1.0) mg/dl AST (13-39) U/L ALT (7-52) U/L Alkaline Phosphatase (34-104) U/L Troponin I High Sens 3.7 (0-14) pg/ml C-Reactive Protein (0-0.5) mg/dl Total Protein (6.0-8.3) gm/dl Albumin (3.4-5.0) gm/dl Globulin (2.5-4.0) gm/dl Albumin/Globulin Ratio (0.9-2) SARS-CoV-2, RNA, NAAT NEGATIVE (NEGATIVE) 01/08/22 01/07/22 01/07/22 Range/Units 00:07 22:21 22:03 WBC (4.8-10.8) K/ul RBC (3.93-5.22) M/uL Hgb (12.0-16.0) g/dl POC Hgb 12.9 (12.0-16.0) g/dl Hct (34.1-44.9) % POC Hct 38 (37-47) % MCV (80.0-100.0) fL MCH (25.0-34.0) pg MCHC (32.0-36.0) g/dL RDW Std Deviation (36.4-46.3) fL RDW Coeff of Pattie (11.5-14.5) % Plt Count (130-400) K/uL MPV (9.4-12.3) fL Immature Gran % (Auto) % Neut % (Auto) % Lymph % (Auto) % Esmeralda % (Auto) % Eos % (Auto) % Baso % (Auto) % Neut # (Auto) (1.4-6.5) K/uL Lymph # (Auto) (1.2-3.4) K/uL Esmeralda # (Auto) (0.24-0.82) K/uL Eos # (Auto) (0-0.50) K/uL Baso # (Auto) (0-0.2) K/uL Immature Gran # (Auto) (0.00-0.02) K/uL ESR (0-20) mm/hr PT (9.0-12.0) Seconds INR (0.9-1.1) APTT (21.0-31.0) Seconds PTT Ratio POC Sodium 140 (135-144) mmol/L Sodium (136-145) mmol/L POC Potassium 3.2 L (3.3-5.0) mmol/L Potassium (3.5-5.1) mmol/L POC Chloride 103 (101-112) mmol/L Chloride (98-107) mmol/L Carbon Dioxide (21-32) mmol/L POC Total CO2 25 (24-31) mmol/L Anion Gap (3-11) POC Anion Gap 17.0 (16-25) mmol/L POC BUN 19 H (7-18) mg/dl BUN (6-23) mg/dl Creatinine (0.6-1.2) mg/dl POC Creatinine 0.7 (0.6-1.3) mg/dl Est Cr Clr Drug Dosing ml/min Est GFR ( Amer) ml/min Est GFR (Non-Af Amer) ml/min BUN/Creatinine Ratio (10-20) Glucose (70-99(Fasting)) mg/dl POC Glucose (other) 86 (70-99) mg/dl Calcium (8.5-10.1) mg/dl POC Ioniz Calcium Daphne 1.19 (1.12-1.32) mmol/l Magnesium 1.7 (1.7-2.4) mg/dl Total Bilirubin (0.2-1.0) mg/dl AST (13-39) U/L ALT (7-52) U/L Alkaline Phosphatase (34-104) U/L Troponin I High Sens 3.6 (0-14) pg/ml C-Reactive Protein (0-0.5) mg/dl Total Protein (6.0-8.3) gm/dl Albumin (3.4-5.0) gm/dl Globulin (2.5-4.0) gm/dl Albumin/Globulin Ratio (0.9-2) SARS-CoV-2, RNA, NAAT (NEGATIVE) 01/07/22 01/07/22 01/07/22 Range/Units 22:03 22:03 22:03 WBC 8.71 (4.8-10.8) K/ul RBC 3.90 L (3.93-5.22) M/uL Hgb 12.9 (12.0-16.0) g/dl POC Hgb (12.0-16.0) g/dl Hct 37.8 (34.1-44.9) % POC Hct (37-47) % MCV 96.9 (80.0-100.0) fL MCH 33.1 (25.0-34.0) pg MCHC 34.1 (32.0-36.0) g/dL RDW Std Deviation 44.1 (36.4-46.3) fL RDW Coeff of Pattie 12.5 (11.5-14.5) % Plt Count 295 (130-400) K/uL MPV 10.1 (9.4-12.3) fL Immature Gran % (Auto) 0.3 % Neut % (Auto) 53.8 % Lymph % (Auto) 39.2 % Esmeralda % (Auto) 4.9 % Eos % (Auto) 1.3 % Baso % (Auto) 0.5 % Neut # (Auto) 4.69 (1.4-6.5) K/uL Lymph # (Auto) 3.41 H (1.2-3.4) K/uL Esmeralda # (Auto) 0.43 (0.24-0.82) K/uL Eos # (Auto) 0.11 (0-0.50) K/uL Baso # (Auto) 0.04 (0-0.2) K/uL Immature Gran # (Auto) 0.03 H (0.00-0.02) K/uL ESR (0-20) mm/hr PT 10.9 (9.0-12.0) Seconds INR 1.0 (0.9-1.1) APTT 23.0 (21.0-31.0) Seconds PTT Ratio 0.8 POC Sodium (135-144) mmol/L Sodium 138 (136-145) mmol/L POC Potassium (3.3-5.0) mmol/L Potassium 3.0 L (3.5-5.1) mmol/L POC Chloride (101-112) mmol/L Chloride 105 (98-107) mmol/L Carbon Dioxide 26 (21-32) mmol/L POC Total CO2 (24-31) mmol/L Anion Gap 7 (3-11) POC Anion Gap (16-25) mmol/L POC BUN (7-18) mg/dl BUN 19 (6-23) mg/dl Creatinine 0.78 (0.6-1.2) mg/dl POC Creatinine (0.6-1.3) mg/dl Est Cr Clr Drug Dosing 99.5 ml/min Est GFR ( Amer) 104.9 ml/min Est GFR (Non-Af Amer) 90.5 ml/min BUN/Creatinine Ratio 24.4 H (10-20) Glucose 87 (70-99(Fasting)) mg/dl POC Glucose (other) (70-99) mg/dl Calcium 8.7 (8.5-10.1) mg/dl POC Ioniz Calcium Daphne (1.12-1.32) mmol/l Magnesium (1.7-2.4) mg/dl Total Bilirubin 0.6 (0.2-1.0) mg/dl AST 35 (13-39) U/L ALT 38 (7-52) U/L Alkaline Phosphatase 79 (34-104) U/L Troponin I High Sens 3.5 (0-14) pg/ml C-Reactive Protein (0-0.5) mg/dl Total Protein 7.6 (6.0-8.3) gm/dl Albumin 4.5 (3.4-5.0) gm/dl Globulin 3.1 (2.5-4.0) gm/dl Albumin/Globulin Ratio 1.5 (0.9-2) SARS-CoV-2, RNA, NAAT (NEGATIVE) Medications Administered Current Inpatient Medications Acetaminophen (Acetaminophen 325 Mg Tab) 650 mg PO Q4H PRN PRN Reason: Pain or Fever Stop: 02/07/22 05:11 Amphetamine/Dextroamphetamine (Amphetamine Asp/Sulf/Dextramph Er 20 Mg Cap) 20 mg PO QAM [facility] Stop: 01/22/22 08:59 Last Admin: 01/08/22 09:54 Dose: 20 mg Famotidine (Famotidine 20 Mg Tab) 20 mg PO BID PRN PRN Reason: Gastric Reflux Stop: 02/07/22 05:11 Linaclotide (Linaclotide 145 Mcg Capsule) 290 mcg PO DAILY PRN PRN Reason: Constipation Stop: 02/07/22 05:44 Morphine Sulfate (Morphine Sulfate 4 Mg/Ml 1 Ml Carp\Vial) 3 mg IV Q4H PRN PRN Reason: Pain Stop: 01/22/22 05:11 Last Admin: 01/08/22 12:50 Dose: 3 mg Naproxen (Naproxen 250 Mg Tab) 250 mg PO BID [facility] Stop: 02/07/22 12:59 Last Admin: 01/08/22 14:16 Dose: 250 mg Nitroglycerin (Nitroglycerin Sl 0.4 Mg/Tab Tab) 0.4 mg SL UD PRN PRN Reason: Chest Pain Stop: 02/07/22 05:11 Ondansetron HCl (Ondansetron Inj 2 Mg/Ml 2 Ml Vial) 4 mg IV Q6H PRN PRN Reason: Nausea Stop: 02/07/22 05:11 Prenat Multivit/Bent/Iron/Folic Ac ( Vitamin 1 Tab) 1 tab PO DAILY [facility] Stop: 02/07/22 08:59 Last Admin: 01/08/22 09:54 Dose: 1 tab Quetiapine Fumarate (Quetiapine Fumarate 200 Mg Tab) 200 mg PO HS [facility] Stop: 02/07/22 20:59 Sumatriptan Succinate (Sumatriptan Succinate 50 Mg Tab) 50 mg PO DAILY PRN PRN Reason: Migraine Headache Stop: 02/07/22 05:11 (1) Chest pain Chest pain type: unspecified Qualified Code(s): R07.9 - Chest pain, unspecified
[2022-01-08] MEDS: oxyCODONE HCL IR 5 MG TAB (IMMEDIATE RELEASE) PO PRN ×2 (17:54→22:39)
[2022-01-08] MEDS ORDERED: QUEtiapine FUMARATE 200 MG TAB PO SCH (21:00)
[2022-01-09] MEDS: oxyCODONE HCL IR 5 MG TAB (IMMEDIATE RELEASE) PO PRN ×3 (05:40→15:16)
[2022-01-09] MEDS: PRENATAL VITAMIN 1 TAB PO SCH (09:05)
[2022-01-09] MEDS: NAPROXEN 250 MG TAB PO SCH (09:05)
[2022-01-09] MEDS: AMPHETAMINE ASP/SULF/DEXTRAMPH ER 20 MG CAP PO SCH (09:13)
--- NOTE | 2022-01-09 11:20 | Electrocardiogram Report ---
Test Reason : Blood Pressure : / mmHG Vent. Rate : 074 BPM Atrial Rate : 074 BPM P-R Int : 140 ms QRS Dur : 080 ms QT Int : 382 ms P-R-T Axes : 039 059 073 degrees QTc Int : 424 ms Normal sinus rhythm Early repolarization without reciprocal changes Normal ECG When compared with ECG of 07-JAN-2022 21:56, Nonspecific T wave abnormality no longer evident in Inferior leads Confirmed by Camden Romero ([id number]) on 01/09/2022 11:19:53 AM Referred By: REFERRED SELF Confirmed By:Camden Romero
--- NOTE | 2022-01-09 12:13 | Psychiatric Consultation ---
Date of Consultation January 09, 2022 Impression / Recommendations Impression 47 yo woman with history of ADHD and anxiety admitted medically for non-cardiac chest pain felt to be most consistent with costochondritis. Psychiatry consulted for recommendations regarding anxiety. Given that patient is well established with an outpatient psychiatric provider who knows her history and manages her medications feel it is best that she explore further medication and therapy options for managing panic attacks with her outpatient provider after discharge. She doesn't feel that non-cardiac chest pain was related to anxiety nor panic attack. Agree with outpatient provider that benzo use should be avoided given that she is on a stimulant medication. With outpatient provider can explore if stimulant dosage should be lowered as this could be contributing to anxiety versus trial of SSRI or alternative anti-anxiety medication such as buspar, propranolol or hydroxyzine. No safety concerns at this time. (1) Costochondritis: (2) Anxiety: (3) ADHD: Plan -Discussed with Dr. Cutler-could consider use of Vistaril 25mg TID prn for anxiety while inpatient, and if helpful consider discharging with small script for this -Patient can follow-up with psych provider in outpatient setting to discuss further options for anxiety management Psych History Identifying Data 47 yo woman with history of ADHD and anxiety admitted medically for non-cardiac chest pain felt to be most consistent with costochondritis. Psychiatry consulted for recommendations regarding anxiety. History of Present Illness Chart reviewed. Patient has outpatient psychiatric provider with whom she is working on finding medication options to help with anxiety. She previously took diazepam but her outpatient psych provider does not feel comfortable prescribing this as she is also on a stimulant for ADHD. She notes periods of high anxiety with panic attacks. She takes seroquel with good effect for sleep. She does not feel her anxiety is related to the chest pain that brought her to the hospital and cardiology felt pain was most consistent with costochondritis. Further collateral per psych liason note from 01/08/22: "Met with pt for initial psychiatric consultation for "anxiety and non-cardiac chest pain." Pt pleasant and cooperative throughout interaction. 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 She states that she used to live in [place] a few years ago and while there she was prescribed Adderall and took diazepam as needed, which she states was very helpful for her anxiety. She is currently prescribed Adderall from her psychiatrist Nito Jiang but states that he has not been prescribing diazepam due to possible interactions and says her anxiety has been going uncontrolled. She states she cries often, experiences uncontrolled breathing, and feels overwhelmed when she is experiencing anxiety. She says she has tried other benzodiazepines in the past but that they were ineffective and caused her side effects which she did not experience while takin g diazepam. She says that most of these problems seem to have started after her mother's passing in July of 2013. She has trouble sleeping, as does most of her family, but reports Seroquel as being very effective for her. She denies any symptoms of depression, SI/SIB/HI/AH/VH, hx of/current violence, trauma, or legal problems. She denies hx of/current substance abuse and states that she does not drink any alcohol. She scored a 3 on the PHQ-9; scoring #9 a 0. ROIs were obtained for Nito Jiang and Atul Tejada, who she sees for psychiatry, as well as Apolinar Rice her PCP. She does not currently have a therapist but states it is something she is interested in at some point; doesn't think it is a good time as she is very busy with her children being out of school for the summer. She is very focused on finding a medication that she can take as needed to help with her symptoms of anxiety. She had a bright affect and was appreciative of the visit; denying any needs at this time." Past Psychiatric History Outpatient Services: Nito Jiang for psych care, not interested in therapy at this time Past Medication Trials: diazepam Allergies Allergy/AdvReac Type Severity Reaction Status Date / Time ketorolac [From Toradol] Allergy Hives Verified 01/07/22 23:30 Home Medications Medication Instructions Recorded Confirmed Type linaclotide 290 mcg capsule 290 mcg PO DAILY PRN Constipation 09/23/20 01/08/22 History (Linzess) quetiapine 100 mg tablet (Seroquel) 200 mg PO HS 09/23/20 01/08/22 History vit no.95-ferrous 1 tab PO DAILY 06/15/21 01/08/22 History fumarate 28 mg-folic acid 800 mcg tablet () sumatriptan succinate 50 mg tablet 50 mg PO DIRECTED PRN Migraine 06/15/21 01/08/22 History Headache acetaminophen 500 mg tablet 1,000 mg PO DAILY PRN Pain 12/14/21 01/08/22 History dextroamphetamine-amphetamine ER 20 mg PO QAM 12/14/21 01/08/22 History 20 mg 24hr capsule,extend release famotidine 20 mg tablet 20 mg PO BID PRN Gastric Reflux 12/14/21 01/08/22 History meloxicam 7.5 mg tablet 15 mg PO QAM PRN Pain 12/14/21 01/08/22 History Personal History Beliefs That Will Affect Care: None Patient History Medical History No acute medical problems Surgical History No pertinent past surgical history Social History Smoking Status: Former smoker Tobacco Type: E-cigarettes / Vaping Hx Alcohol Use: No Hx Substance Use: No Preferred Language: Citizen Of [place] Communication Ability: Effective [employer] Cataloguer Required: No Beliefs That Will Affect Care: None Current Living Situation: Family Current Living Situation Comment: with high-school aged children and children's father How many Children do You have: 2 Feels Safe at Home: Yes Safety Concerns: Feels Safe At This Time Assistive Devices: None Assistive Devices Comment: readers Physical Exam Vital Signs (Past 24 Hours): Last Vital Signs Temp 36.6 C 01/09/22 10:55 Pulse 83 01/09/22 10:55 Resp 16 01/09/22 10:55 BP 124/84 01/09/22 10:55 Pulse Ox 96 01/09/22 10:55 O2 Del Method 01/09/22 10:55 Results & Data (PSY) Medications Administered Amphetamine/Dextroamphetamine (Amphetamine Asp/Sulf/Dextramph Er 20 Mg Cap) 20 mg PO QAM STAN Stop: 01/22/22 08:59 Last Admin: 01/09/22 09:13 Dose: 20 mg Documented By: Admin: 01/08/22 09:54 Dose: 20 mg Documented By: LALITA Famotidine (Famotidine 20 Mg Tab) 20 mg PO BID PRN PRN Reason: Gastric Reflux Stop: 02/07/22 05:11 Last Admin: 01/09/22 09:05 Dose: 20 mg Documented By: DC Morphine Sulfate (Morphine Sulfate 4 Mg/Ml 1 Ml Carp\\Vial) 3 mg IV Q4H PRN PRN Reason: Pain Stop: 01/22/22 05:11 Last Admin: 01/08/22 12:50 Dose: 3 mg Documented By: Admin: 01/08/22 08:55 Dose: 3 mg Documented By: Admin: 01/08/22 06:00 Dose: 3 mg Documented By: SAMY Naproxen (Naproxen 250 Mg Tab) 250 mg PO BID STAN Stop: 02/07/22 12:59 Last Admin: 01/09/22 09:05 Dose: 250 mg Documented By: Admin: 01/08/22 20:50 Dose: 250 mg Documented By: Admin: 01/08/22 14:16 Dose: 250 mg Documented By: LALITA Oxycodone HCl (Oxycodone Hcl Ir 5 Mg Tab (Immediate Release)) 5 mg PO Q3H PRN PRN Reason: Pain Stop: 01/22/22 17:32 Last Admin: 01/09/22 12:10 Dose: 5 mg Documented By: Admin: 01/09/22 05:40 Dose: 5 mg Documented By: Admin: 01/08/22 22:39 Dose: 5 mg Documented By: Admin: 01/08/22 17:54 Dose: 5 mg Documented By: LALITA Prenat Multivit/[place]/Iron/Folic Ac ( Vitamin 1 Tab) 1 tab PO DAILY STAN Stop: 02/07/22 08:59 Last Admin: 01/09/22 09:05 Dose: 1 tab Documented By: Admin: 01/08/22 09:54 Dose: 1 tab Documented By: LALITA Quetiapine Fumarate (Quetiapine Fumarate 200 Mg Tab) 200 mg PO HS STAN Stop: 02/07/22 20:59 Last Admin: 01/08/22 20:50 Dose: 200 mg Documented By: BHARGAVI Coding Level of Care Code None Diagnoses Costochondritis M94.0 Anxiety F41.9 ADHD F90.9
[2022-01-09] MEDS ORDERED: DOCUSATE SODIUM 100 MG CAP PO ONE (12:20)
[2022-01-09] MEDS ORDERED: POLYETHYLENE (MIRALAX) 17 GM PACK PO SCH (12:30)
--- NOTE | 2022-01-09 13:13 | Hospitalist Progress Note ---
Date of Service January 09, 2022 Assessment & Plan (1) Chest pain: (2) Costochondritis: Plan: This is a 46-year-old female who presents with chest pain. 1. Chest pain: Admitted to Rule out acute coronary syndrome. Risk factor of obesity. History of tobacco use. Initial workup negative. observed in the med tele. serial enzymes negative Echo Normal LV chamber size and wall thickness. LV systolic function EF 60 to 65%. No segmental LV wall motion abnormalities are noted. Grade 1 diastolic dysfunction. No significant valvular pathology. The interatrial septum is intact with no evidence for an atrial septal defect. Injection of contrast documented no interatrial shunt. Dobutamine stress echo Nonischemic dobutamine stress echo. No arrhythmias. Normal heart rate and blood pressure response to exercise. Chest discomfort was not reproduced at peak heart rate. Cardiology consulted Her ischemic work-up was unremarkable with a negative dobutamine stress echocardiogram. Resting echocardiogram is also unremarkable. Given the fact that her pain is reproducible I do believe she is suffering from costochondritis and would likely benefit from NSAIDs and pain management ev aluation for possible injection. No further cardiac testing intervention is necessary at this time. No cardiac follow-up is warranted at this time. Okay to discharge to home from a cardiac standpoint. ESR, CRP not elevated CTA chest FINDINGS: Lungs and pleura: Atelectasis versus scarring is seen in the dependent portions of the lungs. Heart and pericardium: There is cardiomegaly without evidence of pericardial effusion. Vessels: No evidence of pulmonary embolism. Mediastinum and zoe: Unremarkable. Chest wall and lower neck: Subcentimeter thyroid nodules are noted which do not require follow-up by ACR criteria. Abdomen: Hepatic steatosis is noted. Bones: Unremarkable. IMPRESSION: 1. No evidence of pulmonary embolism. 2. No evidence of pneumonia. 3. Hepatic steatosis. 01/08 - patient is relieved that her chest pain is not from cardiac cause Reports having ongoing chest pain for some time, on and off Continues to be uncomfortable and requires pain medications. Discussed pain management consult, which was placed She reports that she takes NSAIDs at home, however with not much benefit. NSAIDs ordered as well Reports using prednisone from PCP when chest pain increased Reports opioids helped somewhat, more than other pain meds. Discussed anxiety, and possibility of this contributing to her chest pain, she does follow-up with psychiatry as outpt. We will discuss with psychiatry here as well to see if they can help with management 01/09 Patient agrees with pain management consultation, however she would like to proceed as outpatient Today is her birthday, and she would like to be home We will have patient follow-up with PCP 2. History of constipation: Continue her home medication of Linzess. 3. Attention deficit hyperactivity disorder: Continue her Adderall. 4. Panic disorder and generalized anxiety disorder: On Seroquel. Consult placed, as above. 5. Migraine: On sumatriptan p.r.n. DVT prophylaxis: SCDs DISPOSITION: Observed in [employer] tele. Plan to DC home Code: full code Admission and Anticipated Discharge Date Admission Date: January 08, 2022 Subjective Pt seen in follow up of chest pain Seen by cardiology, all testing negative for cardiac cause Currently sitting up in bed, not in acute distress, however continues to have chest pain Reports chest pain has been ongoing for some time Currently using NSAIDs at home, does not seem to be improving Reports getting prednisone from PCP when chest pain increased Reports some improvement with opiates No fevers, chills, shortness of breath, dizziness, lightheadedness, nausea v omiting, abdominal pain Today overall feeling better, she feels relieved that her chest pain is noncardiac She agrees with pain management consultation, however she would like to do it as outpatient, and would like to be discharged home Today is her birthday Review of Systems Review of Systems: All systems reviewed & are unremarkable except as noted in Subjective Physical Exam Physical Exam: GENERAL: obese F, not in acute distress. HEENT: NC/AT, EOMI, Pupils equal, round, and reactive to light. Oral mucosa moist. NECK: No JVD. No neck masses. CARDIOVASCULAR: S1 and S2 heard. Regular rate and rhythm. No murmur, no gallop. RESPIRATORY SYSTEM: Normal AP diameter. No accessory muscle use. No wheezing, no crackles. ABDOMEN: Soft, bowel sounds present, nontender, no distention. NEURO:Awake alert, able to answer questions appropriately, no facial asymmetry, moves extremities EXTREMITIES: No edema, no erythema. Results & Data Results & Data ([facility]) Vital Signs (Past 12 Hours) Vital Signs Temp Pulse Pulse Resp BP BP Pulse Ox 01/09/22 10:55 36.6 C 83 16 124/84 96 01/09/22 08:57 71 01/09/22 08:34 36.4 C L 84 16 141/86 H 97 01/09/22 04:00 36.7 C 79 18 106/62 97 O2 Del Method 01/09/22 10:55 Room Air 01/09/22 08:57 01/09/22 08:34 Room Air 01/09/22 04:00 Room Air Laboratory Results 01/09/22 01/09/22 01/08/22 Range/Units 07:55 07:55 17:26 ESR 7 (0-20) mm/hr Troponin I High Sens 15.1 H D (0-14) pg/ml C-Reactive Protein < 0.50 (0-0.5) mg/dl Medications Administered Current Inpatient Medications Acetaminophen (Acetaminophen 325 Mg Tab) 650 mg PO Q4H PRN PRN Reason: Pain or Fever Stop: 02/07/22 05:11 Amphetamine/Dextroamphetamine (Amphetamine Asp/Sulf/Dextramph Er 20 Mg Cap) 20 mg PO QAM [facility] Stop: 01/22/22 08:59 Last Admin: 01/09/22 09:13 Dose: 20 mg Famotidine (Famotidine 20 Mg Tab) 20 mg PO BID PRN PRN Reason: Gastric Reflux Stop: 02/07/22 05:11 Last Admin: 01/09/22 09:05 Dose: 20 mg Linaclotide (Linaclotide 145 Mcg Capsule) 290 mcg PO DAILY PRN PRN Reason: Constipation Stop: 02/07/22 05:44 Morphine Sulfate (Morphine Sulfate 4 Mg/Ml 1 Ml Carp\Vial) 3 mg IV Q4H PRN PRN Reason: Pain Stop: 01/22/22 05:11 Last Admin: 01/08/22 12:50 Dose: 3 mg Naproxen (Naproxen 250 Mg Tab) 250 mg PO BID [facility] Stop: 02/07/22 12:59 Last Admin: 01/09/22 09:05 Dose: 250 mg Nitroglycerin (Nitroglycerin Sl 0.4 Mg/Tab Tab) 0.4 mg SL UD PRN PRN Reason: Chest Pain Stop: 02/07/22 05:11 Ondansetron HCl (Ondansetron Inj 2 Mg/Ml 2 Ml Vial) 4 mg IV Q6H PRN PRN Reason: Nausea Stop: 02/07/22 05:11 Oxycodone HCl (Oxycodone Hcl Ir 5 Mg Tab (Immediate Release)) 5 mg PO Q3H PRN PRN Reason: Pain Stop: 01/22/22 17:32 Last Admin: 01/09/22 12:10 Dose: 5 mg Polyethylene Glycol (Polyethylene (Miralax) 17 Gm Pack) 17 gm PO DAILY STAN Stop: 02/08/22 12:29 Prenat Multivit/Assistant Refinery [employer]/Iron/Folic Ac ( Vitamin 1 Tab) 1 tab PO DAILY STAN Stop: 02/07/22 08:59 Last Admin: 01/09/22 09:05 Dose: 1 tab Quetiapine Fumarate (Quetiapine Fumarate 200 Mg Tab) 200 mg PO HS STAN Stop: 02/07/22 20:59 Last Admin: 01/08/22 20:50 Dose: 200 mg Sumatriptan Succinate (Sumatriptan Succinate 50 Mg Tab) 50 mg PO DAILY PRN PRN Reason: Migraine Headache Stop: 02/07/22 05:11 (1) Chest pain Chest pain type: unspecified Qualified Code(s): R07.9 - Chest pain, unspecified
--- NOTE | 2022-01-09 14:27 | Discharge Summary ---
Date of Service January 09, 2022 Admission HPI Per Admitting Provider This is a 46-year-old female with past medical history significant for chronic constipation, migraine variant, generalized anxiety disorder, panic disorder, chronic insomnia, ADHD, tobacco abuse, who presents with chest pain. The patient states that since the morning she is having severe chest pain all over the chest radiating to the back, shoulder, neck, associated with some nausea and had one episode of vomiting in the ER. In the ER, she received several pain medications, still the pain is significant. When she is getting this pain, she is feeling short of breath. She had COVID on 12/15/2021, but she was not hospitalized, but felt very weak. Has some mild headache. No blurred visions, no earache, no runny nose, no sore throat. Has some occasional cough. No abdominal pain. Somewhat constipated. Normal bladder movements. Otherwise, ambulates okay. Currently, resting comfortably and hemodynamically stable. Admission Exam Per Admitting Provider GENERAL: The patient is obese, not in acute distress. VITAL SIGNS: Temperature 36.7, pulse 96, respiratory rate 20, blood pressure 137/105, oxygen 96% on room air. HEENT: Pupils equal, round, and reactive to light. Oral mucosa moist. NECK: No JVD. No neck masses. CARDIOVASCULAR: S1 and S2 heard. Regular rate and rhythm. No murmur, no gallop. RESPIRATORY SYSTEM: Normal AP diameter. No accessory muscle use. No wheezing, no crackles. ABDOMEN: Soft, bowel sounds present, nontender, no distention. CENTRAL NERVOUS SYSTEM: Cranial nerves II-XII grossly intact, nonfocal. EXTREMITIES: No edema, no erythema. Principal Diagnosis Noncardiac chest pain, likely costochondritis Discharge Exam GENERAL: obese F, not in acute distress. HEENT: NC/AT, EOMI, Pupils equal, round, and reactive to light. Oral mucosa moist. NECK: No JVD. No neck masses. CARDIOVASCULAR: S1 and S2 heard. Regular rate and rhythm. No murmur, no gallop. RESPIRATORY SYSTEM: Normal AP diameter. No accessory muscle use. No wheezing, no crackles. ABDOMEN: Soft, bowel sounds present, nontender, no distention. NEURO:Awake alert, able to answer questions appropriately, no facial asymmetry, moves extremities EXTREMITIES: No edema, no erythema. Discharge Data Allergies Allergy/AdvReac Type Severity Reaction Status Date / Time ketorolac [From Toradol] Allergy Hives Verified 01/07/22 23:30 Consultations 01/08/22 01:37 ED Decision to Admit Stat 01/08/22 08:00 Consult Cardiology Routine 01/08/22 13:07 Consult Pain Management Routine 01/08/22 17:09 Consult Psychiatry Routine Ordered Studies 01/07/22 22:13 CT angio chest PE protocol Stat FINDINGS: Lungs and pleura: Atelectasis versus scarring is seen in the dependent portions of the lungs. Heart and pericardium: There is cardiomegaly without evidence of pericardial effusion. Vessels: No evidence of pulmonary embolism. Mediastinum and zoe: Unremarkable. Chest wall and lower neck: Subcentimeter thyroid nodules are noted which do not require follow-up by ACR criteria. Abdomen: Hepatic steatosis is noted. Bones: Unremarkable. IMPRESSION: 1. No evidence of pulmonary embolism. 2. No evidence of pneumonia. 3. Hepatic steatosis. Hospital Course (1) Chest pain: (2) Costochondritis: This is a 46-year-old female who presents with chest pain. 1. Chest pain: Admitted to Rule out acute coronary syndrome. Risk factor of obesity. History of tobacco use. Initial workup negative. observed in the med tele. serial enzymes negative Echo Normal LV chamber size and wall thickness. LV systolic function EF 60 to 65%. No segmental LV wall motion abnormalities are noted. Grade 1 diastolic dysfunction. No significant valvular pathology. The interatrial septum is intact with no evidence for an atrial septal defect. Injection of contrast documented no interatrial shunt. Dobutamine stress echo Nonischemic dobutamine stress echo. No arrhythmias. Normal heart rate and blood pressure response to exercise. Chest discomfort was not reproduced at peak heart rate. Cardiology consulted Her ischemic work-up was unremarkable with a negative dobutamine stress echocardiogram. Resting echocardiogram is also unremarkable. Given the fact that her pain is reproducible I do believe she is suffering from costochondritis and would likely benefit from NSAIDs and pain management evaluation for possible injection. No further cardiac testing intervention is necessary at this time. No cardiac follow-up is warranted at this time. Okay to discharge to home from a cardiac standpoint. ESR, CRP not elevated CTA chest FINDINGS: Lungs and pleura: Atelectasis versus scarring is seen in the dependent portions of the lungs. Heart and pericardium: There is cardiomegaly without evidence of pericardial effusion. Vessels: No evidence of pulmonary embolism. Mediastinum and oze: Unremarkable. Chest wall and lower neck: Subcentimeter thyroid nodules are noted which do not require follow-up by ACR criteria. Abdomen: Hepatic steatosis is noted. Bones: Unremarkable. IMPRESSION: 1. No evidence of pulmonary embolism. 2. No evidence of pneumonia. 3. Hepatic steatosis. 01/08 - patient is relieved that her chest pain is not from cardiac cause Reports having ongoing chest pain for some time, on and off Continues to be uncomfortable and requires pain medications. Discussed pain management consult, which was placed She reports that she takes NSAIDs at home, however with not much benefit. NSAIDs ordered as well Reports using prednisone from PCP when chest pain increased Reports opioids helped somewhat, more than other pain meds. Discussed anxiety, and possibility of this contributing to her chest pain, she does follow-up with psychiatry as outpt. We will discuss with psychiatry here as well to see if they can help with management 01/09 Patient agrees with pain management consultation, however she would like to proceed as outpatient Today is her birthday, and she would like to be home We will have patient follow-up with PCP 2. History of constipation: Continue her home medication of Linzess. 3. Attention deficit hyperactivity disorder: Continue her Adderall. 4. Panic disorder and generalized anxiety disorder: On Seroquel. Consult placed, as above. 5. Migraine: On sumatriptan p.r.n. Total Time Total Time Spent Total Time Spent (In Minutes): 40 Discharge Plan Discharge Items Patient Disposition: Home - Self-Care Reason For Visit: CHEST PAIN Discharge Diagnosis: Noncardiac chest pain, likely costochondritis Condition on Discharge: Good Activity: Per Instructions section Non-emergency contact: Primary Care Provider Call non-emergency contact if: you have any medication questions and your symptoms worsen Follow-up/Referrals: Apolinar Rice MD [Primary Care Provider] - Diet: Heart Healthy Addtl Attending Provider Instructions: Follow-up with primary care doctor, within 1 to 2 weeks. Recommend that you are referred to pain management. Take meloxicam as prescribed. For more severe pain, take oxycodone as prescribed. For anxiety, you can try hydroxyzine as prescribed. For constipation, recommend taking MiraLAX, and/or Colace. Both of these medications are available [id number]. Pending Studies at Discharge: No Stand-Alone Forms: [facility], Smoking Cessation Medications and DC Order Prescriptions: New oxycodone 5 mg Tablet 5 mg PO Q3H PRN (Reason: pain) Qty: 10 0RF hydroxyzine HCl 25 mg tablet 25 mg PO TID PRN (Reason: anxiety, itching) Qty: 10 0RF meloxicam 7.5 mg tablet 7.5 mg PO DAILY Qty: 10 0RF prednisone 20 mg tablet 20 mg PO DAILY 3 Days Qty: 3 0RF Continued sumatriptan succinate 50 mg tablet 50 mg PO DIRECTED MDD 2 DOSES/24 HOURS PRN (Reason: Migraine Headache) Rx Instructions: TAKE AT ONSET OF FOSTER, MAY REPEAT EVERY 2 HOURS IF NEEDED, MAX 2 DOSES IN 24 HOURS. PNV cmb#[id number]-ferrous fumarate-FA [] 28 mg iron- 800 mcg Tablet 1 tab PO DAILY quetiapine [Seroquel] 100 mg tablet 200 mg PO HS Linzess 290 mcg capsule 290 mcg PO DAILY PRN (Reason: Constipation) dextroamphetamine-amphetamine 20 mg capsule,extended release 24hr 20 mg PO QAM acetaminophen [Tylenol Ex Str Rapid Release] 500 mg Tablet 1,000 mg PO DAILY PRN (Reason: Pain) famotidine 20 mg tablet 20 mg PO BID PRN (Reason: Gastric Reflux) meloxicam 7.5 mg tablet 15 mg PO QAM PRN (Reason: Pain) Qty: 10 0RF Discharge Orders: Discharge Order (Routine); Ordered 01/09/22 Ordered By: Sebastian Cutler Admission Data Admit Date/Time: 01/08/22 02:39 Attending Provider: Sebastian Cutler Admit Provider: Darell Smith Primary Care Provider: Apolinar Rice Other Providers: Darell Smith ; Lance Littlejohn ; Finn Gongora ; Jose D Gordillo ; Jonathan Medellin ; Jose L Vargas ; Viktor Singer ; Magalys Underwood ; Rosey Martínez ; Idalmis Romeo ; Bill Alfred ; Shanique Van ; Marilee Berrios ; Kathie Contreras ; Brigette Velasquez
--- NOTE | 2022-01-10 14:58 | Pain Management Consultation ---
Date of Consultation January 10, 2022 Assessment & Plan (1) Costochondritis: Plan pt d/c'd prior to being seen History of Present Illness Attending Physician: Sebastian Cutler MD Allergies Allergy/AdvReac Type Severity Reaction Status Date / Time ketorolac [From Toradol] Allergy Hives Verified 01/07/22 23:30 Home Medications Medication Instructions Recorded Confirmed Type linaclotide 290 mcg capsule 290 mcg PO DAILY PRN Constipation 09/23/20 01/08/22 History (Linzess) quetiapine 100 mg tablet (Seroquel) 200 mg PO HS 09/23/20 01/08/22 History vit no.95-ferrous 1 tab PO DAILY 06/15/21 01/08/22 History fumarate 28 mg-folic acid 800 mcg tablet () sumatriptan succinate 50 mg tablet 50 mg PO DIRECTED PRN Migraine 06/15/21 01/08/22 History Headache acetaminophen 500 mg tablet 1,000 mg PO DAILY PRN Pain 12/14/21 01/08/22 History dextroamphetamine-amphetamine ER 20 mg PO QAM 12/14/21 01/08/22 History 20 mg 24hr capsule,extend release famotidine 20 mg tablet 20 mg PO BID PRN Gastric Reflux 12/14/21 01/08/22 History hydroxyzine HCl 25 mg tablet 25 mg PO TID PRN anxiety, itching 01/09/22 Rx #10 tabs meloxicam 7.5 mg tablet 7.5 mg PO DAILY #10 tabs 01/09/22 Rx meloxicam 7.5 mg tablet 15 mg PO QAM PRN Pain #10 tabs 01/09/22 01/08/22 Rx oxycodone 5 mg tablet 5 mg PO Q3H PRN pain #10 tabs 01/09/22 Rx prednisone 20 mg tablet 20 mg PO DAILY 3 days #3 tabs 01/09/22 Rx Patient History Medical History No acute medical problems Surgical History No pertinent past surgical history Social History Smoking Status: Former smoker Tobacco Type: E-cigarettes / Vaping Hx Alcohol Use: No Hx Substance Use: No Preferred Language: Kosovan Communication Ability: Effective Durability Technician Required: No Beliefs That Will Affect Care: None Current Living Situation: Family Current Living Situation Comment: with high-school aged children and children's father How many Children do You have: 2 Feels Safe at Home: Yes Assistive Devices: None
== END 2022-01-09 15:27 | disposition home or self-care (01) ==
LOC: ED 21:53 → 2W 21:53

== ENCOUNTER 2024-02-21 18:23 | Observation (INO) ==
--- NOTE | 2024-02-21 19:11 | Emergency Department Note ---
Impression & Plan TIA (transient ischemic attack), Facial paresthesia, Hypertension ED Provider Note NAME: KACEY LINARES AGE: 49 SEX: F : 1975 ARRIVES VIA: Ambulance INFORMANT: Patient ED PROVIDER(S): Michael Adames DO CHIEF COMPLAINT: Facial droop, weakness HPI: Patient is a 49-year-old female with a past medical history of anxiety, ADHD and chest pain who presents to the ER for not feeling right around 3 PM. She notes she felt dizzy and she has right-sided facial numbness. She notes that she cannot close her left eye and she has watering out of her left eye. Additional history provided by daughter who was present at bedside who notes that initially she saw slight left-sided facial droop and then it was mainly in the right. Patient notes that she is having trouble raising both eyebrows. Denies any weakness or numbness in the arms or legs. ADDITIONAL HISTORY OBTAINED: Per HPI Chronic Medical/Social Conditions Affecting Care: Per HPI PAST MEDICAL HISTORY:See Below PAST SURGICAL HISTORY:See Below FAMILY HISTORY:See Below SOCIAL HISTORY:See Below HOME MEDICATIONS:See Below ALLERGIES:See Below VITALS:See Below PHYSICAL EXAMINATION: GENERAL: Sitting up in bed, alert, well appearing, well nourished, no distress, non-toxic EYE EXAM: normal conjunctiva. PERRL and EOM's grossly intact. OROPHARYNX: no exudate, no erythema, lips, buccal mucosa, and tongue normal and mucous membranes are moist NECK: supple, no nuchal rigidity, no adenopathy, non-tender LUNGS: Clear to auscultation. Normal chest wall mechanics HEART: no murmurs, S1 normal and S2 normal ABDOMEN: abdomen soft, non-tender, normo-active bowel sounds, no masses, no rebound or guarding. UPPER EXTREMITIES: upper extremities are grossly normal. LOWER EXTREMITIES: No pitting edema. NEURO EXAM: Normal sensorium, cranial nerves II-XII intact with the exception she is unable to completely close left eye, normal speech, no weakness of arms, no weakness of legs. No drift. Finger to nose intact. Gross sensation intact. MEDICAL DECISION MAKING: Patient is a 49-year-old female who presents ER for the above-stated complaint. IV was established blood work is obtained. On my exam she was complaining of contralateral facial symptoms and consequently a stroke alert was called. Only objective finding was her inability to close her left eye eye. Labs show mild leukopenia 4.7. No significant anemia. INR unremarkable. BMP with mild hypokalemia 3.4. LFTs bilirubin and troponin was negative. Lyme was negative. CT angios of the head and neck showed no acute pathology. Patient was evaluated by [facility] and they recommended aspirin admission and complete workup. Patient was updated at bedside. Please see the hospitalist notes for further detail. Consults/Care Managements Discussions: Per [facility] Triage Nursing notes reviewed. Limited review of prior medical records performed Vital Signs: reviewed and remarkable for HTN Differential diagnosis: Differential Diagnosis includes but is not limited to ischemic Stroke, hemorrhagic stroke, bells palsy, mass, neoplasm, migraine headache, seizure, subarachnoid hemorrhage, TIA, and transient global amnesia. ER treatment provided: See below Diagnostics interpreted by me include EKG and cardiac monitoring as listed below: -Cardiac Monitoring: An order was placed for continuous cardiac monitoring. The monitor shows a rate of 90 with sinus rhythm. -ECG: Sinus rhythm rate of 94 Normal axis No PVCs QTc 440 -Laboratory studies:Interpreted by me as stated above in MDM and shown below. Imaging studies: Xrays: As interpreted by me: Portable AP upright 1 view of the chest shows no focal infiltrate CTs show: CT angios of the head and neck were negative per radiology Procedures:none Critical Care: None Past Med/Surg History Problem List (Updated 02/21/24 @ 23:31 by Michael Adames DO) Hypertension (Acute) TIA (transient ischemic attack) (Acute) Hypertensive urgency Hypomagnesemia Hypokalemia Facial paresthesia (Acute) ADHD Anxiety Costochondritis (Acute) Chest pain (Acute) Surgical History History of arthroscopic surgery of elbow History of section Family History Father COPD (chronic obstructive pulmonary disease) Mother COPD (chronic obstructive pulmonary disease) Sister Hypertension Social History Smoking Status: Current some day smoker Tobacco Type: E-cigarettes / Vaping Hx Alcohol Use: No Hx Substance Use: No Preferred Language: Macedonian Communication Ability: Effective Layboy Tender Required: No Beliefs That Will Affect Care: None Current Living Situation: Family Current Living Situation Comment: with high-school aged children and children's father How many Children do You have: 2 Feels Safe at Home: Yes Assistive Devices: None Allergies Allergies Allergy/AdvReac Type Severity Reaction Status Date / Time ketorolac [From Toradol] Allergy Intermediate Hives Verified 12/18/23 20:22 Home Meds Home Medications Medication Instructions Recorded Confirmed sumatriptan succinate 50 mg tablet 50 mg PO DIRECTED PRN Migraine 06/15/21 02/21/24 Headache acetaminophen 500 mg tablet 1,000 mg PO Q8H PRN Pain 12/14/21 02/21/24 dextroamphetamine-amphetamine ER 20 mg PO QAM 12/18/23 02/21/24 20 mg 24hr capsule,extend release famotidine 20 mg tablet 20 mg PO BID PRN Heartburn 12/18/23 02/21/24 hydroxyzine HCl 25 mg tablet 25 mg PO Q6H PRN Anxiety 12/18/23 02/21/24 meloxicam 7.5 mg tablet 7.5 mg PO QAM 12/18/23 02/21/24 omeprazole 20 mg capsule,delayed 20 mg PO DAILYBB PRN Heartburn 12/18/23 02/21/24 release quetiapine 300 mg tablet 300 mg PO HS 12/18/23 02/21/24 polyethylene glycol 3350 17 17 g PO DAILY PRN Constipation 02/21/24 02/21/24 gram/dose oral powder Results & Data (ED) Vital Signs Vital Signs - 24 hr 02/21/24 18:35 02/21/24 18:41 02/21/24 20:23 Temperature 37 C Temperature Source Oral Pulse Rate 87 85 Pulse Rate [Apical] 91 H Respiratory Rate 22 22 Respiratory Effort / Characteristics Non-Labored Spontaneous Non-Labored Spontaneous Respiratory Depth Normal Normal Respiratory Pattern Regular Regular Blood Pressure 156/100 H Blood Pressure [Right Arm] 161/114 H Blood Pressure Mean 118 Blood Pressure Mean [Right Arm] 129 Blood Pressure Position Lying Pulse Oximetry 98 98 Oxygen Delivery Method Room Air Room Air Sepsis Recent Fever Within 48 Hours No Sepsis New/Unexplained Change in Mental Status No Sepsis Action Taken by Nursing No Action Required 02/21/24 22:30 02/21/24 22:51 Temperature Temperature Source Pulse Rate Pulse Rate [Apical] 82 82 Respiratory Rate 20 20 Respiratory Effort / Characteristics Non-Labored Spontaneous Non-Labored Spontaneous Respiratory Depth Normal Normal Respiratory Pattern Regular Regular Blood Pressure Blood Pressure [Right Arm] 149/101 H 129/93 Blood Pressure Mean Blood Pressure Mean [Right Arm] 117 105 Blood Pressure Position Pulse Oximetry 97 Oxygen Delivery Method Room Air Sepsis Recent Fever Within 48 Hours Sepsis New/Unexplained Change in Mental Status Sepsis Action Taken by Nursing Laboratory Data 02/21/24 18:50 02/21/24 18:50 Lab Results 02/21/24 Range/Units 18:50 WBC 4.79 L (4.8-10.8) K/ul RBC 3.64 L (4.20-5.40) M/uL Hgb 12.2 (12.0-16.0) g/dl Hct 34.8 L (37.0-47.0) % MCV 95.6 (80.0-100.0) fL MCH 33.5 (25.0-34.0) pg MCHC 35.1 (32.0-36.0) g/dL RDW Std Deviation 40.9 (36.4-46.3) fL RDW Coeff of Pattie 11.7 (11.5-14.5) % Plt Count 284 (130-400) K/uL MPV 10.5 (9.4-12.4) fL Immature Gran % (Auto) 0.2 % Neut % (Auto) 55.8 % Lymph % (Auto) 34.2 % Kidder % (Auto) 7.1 % Eos % (Auto) 2.1 % Baso % (Auto) 0.6 % Neut # (Auto) 2.67 (1.40-6.50) K/uL Lymph # (Auto) 1.64 (1.20-3.40) K/uL Kidder # (Auto) 0.34 (0.11-0.59) K/uL Eos # (Auto) 0.10 (0.00-0.50) K/uL Baso # (Auto) 0.03 (0.00-0.20) K/uL Immature Gran # (Auto) 0.01 (0.01-0.20) K/uL PT 10.5 (9.0-12.0) Seconds INR 1.0 (0.9-1.1) APTT 25 (21-31) Seconds PTT Ratio 0.9 Sodium 140 (136-145) mmol/L Potassium 3.4 L (3.5-5.1) mmol/L Chloride 107 (98-107) mmol/L Carbon Dioxide 26 (21-32) mmol/L Anion Gap 7 (3-11) BUN 19 (6-23) mg/dl Creatinine 0.75 (0.6-1.2) mg/dl Est Cr Clr Drug Dosing 101.2 ml/min Est GFR ( Amer) 107.7 ml/min Est GFR (Non-Af Amer) 92.9 ml/min BUN/Creatinine Ratio 25.3 H (10-20) Glucose 118 H (70-99(Fasting)) mg/dl Calcium 9.4 (8.6-10.3) mg/dl Magnesium 1.8 (1.7-2.4) mg/dl Total Bilirubin 0.5 (0.2-1.0) mg/dl AST 19 (13-39) U/L ALT 22 (7-52) U/L Alkaline Phosphatase 78 (34-104) U/L Troponin I High Sens 3.2 (0-14) pg/ml Total Protein 7.1 (6.0-8.3) gm/dl Albumin 4.3 (3.4-5.0) gm/dl Globulin 2.8 (2.5-4.0) gm/dl Albumin/Globulin Ratio 1.5 (0.9-2) Lyme Disease Screen Negative (Negative) Administered Medications Potassium Chloride 20 meq/ (Lactated Ringer's) 1,010 mls @ 50 mls/hr IV .[id number] ONE Stop: 02/22/24 16:35 Last Admin: 02/21/24 21:35 Dose: 50 mls/hr Documented By: HINA Discontinued Medications Acetaminophen (Acetaminophen 325 Mg Tab) 650 mg PO NOW STA Stop: 02/21/24 20:51 Last Admin: 02/21/24 21:30 Dose: 650 mg Documented By: HINA Magnesium Sulfate/Dextrose (Magnesium Sulfate / D5w) 1 gm in 100 mls @ 50 mls/hr IV ONE ONE Stop: 02/21/24 22:35 Last Admin: 02/21/24 21:30 Dose: 50 mls/hr Documented By: HINA Ioversol (Optiray 320 125ml) 116 ml IV ONCE ONE Stop: 02/21/24 19:16 Last Admin: 02/21/24 19:16 Dose: 116 ml Documented By: WALESKA Imaging Data Radiologist's Impression: Head CT 02/21/24 19:07 CR Exam(s): CT HEAD Without Contrast EXAM: CT Head Without Intravenous Contrast CLINICAL HISTORY: Reason for exam: neuro deficit, acute stroke suspected. TECHNIQUE: Axial computed tomography images of the head/brain without intravenous contrast. CTDI is 44.38 mGy and DLP is 677.48 mGy-cm. Automated exposure control was utilized for the study. A dose lowering technique was utilized adhering to the principles of ALARA. COMPARISON: No relevant prior studies available. FINDINGS: Brain: No hemorrhage, extra-axial fluid collection, mass effect, or edema. Ventricles: Unremarkable. Bones/joints: Unremarkable. No fracture. Soft tissues: Unremarkable. Sinuses: No acute sinusitis. Mastoid air cells: Unremarkable as visualized. IMPRESSION: 1. No acute intracranial abnormality. Communications: Call Doctor Stroke Electronically signed by: Darius Ventura MD 02/21/24 19:37 PM Head CTA 02/21/24 19:07 CR Exam(s): CTA HEAD With Contrast IV Amt: 116 ml optiray 320 EXAM: CT Angiography Head With Intravenous Contrast CLINICAL HISTORY: Reason for exam: neuro deficit, acute stroke suspected. TECHNIQUE: Axial computed tomographic angiography images of the head with intravenous contrast. CTDI is 72 mGy and DLP is 1132.7 mGy-cm. Automated exposure control was utilized for the study. A dose lowering technique was utilized adhering to the principles of ALARA. MIP reconstructed images were created and reviewed. CONTRAST: Patient received 116 ml optiray 320 of IV contrast COMPARISON: No relevant prior studies available. FINDINGS: Right internal carotid artery: No acute findings. Intracranial segment is patent with no significant stenosis. No aneurysm. Right anterior cerebral artery: Unremarkable. No occlusion or significant stenosis. No aneurysm. Right middle cerebral artery: Unremarkable. No occlusion or significant stenosis. No aneurysm. Right posterior cerebral artery: Unremarkable. No occlusion or significant stenosis. No aneurysm. Right vertebral artery: Unremarkable as visualized. Left internal carotid artery: No acute findings. Intracranial segment is patent with no significant stenosis. No aneurysm. Left anterior cerebral artery: Unremarkable. No occlusion or significant stenosis. No aneurysm. Left middle cerebral artery: Unremarkable. No occlusion or significant stenosis. No aneurysm. Left posterior cerebral artery: Unremarkable. No occlusion or significant stenosis. No aneurysm. Left vertebral artery: Unremarkable as visualized. Basilar artery: Unremarkable. No occlusion or significant stenosis. No aneurysm. IMPRESSION: Normal head CTA. Communications: Call Doctor Stroke Electronically signed by: Darius Ventura MD 02/21/24 19:40 PM Neck CTA 02/21/24 19:07 CR Exam(s): CTA NECK With Contrast IV Amt: 116 ml optiray 320 EXAM: CT Angiography Neck With Intravenous Contrast CLINICAL HISTORY: Reason for exam: neuro deficit, acute stroke suspected. TECHNIQUE: Routine carotid CT angiography protocol was performed with intravenous contrast. NASCET criteria using the distal ICAs for comparison were used for evaluation of stenoses. CTDI is 72 mGy and DLP is 1132.7 mGy-cm. Automated exposure control was utilized for the study. A dose lowering technique was utilized adhering to the principles of ALARA. MIP reconstructed images were created and reviewed. CONTRAST: Patient received 116 ml optiray 320 of IV contrast COMPARISON: None. FINDINGS: VASCULATURE: Right common carotid artery: Unremarkable. No occlusion or significant stenosis. No dissection. Right internal carotid artery: Unremarkable. Extracranial segment is patent with no occlusion or significant stenosis. No dissection. Right vertebral artery: Unremarkable. No occlusion or significant stenosis. No dissection. Left common carotid artery: Unremarkable. No occlusion or significant stenosis. No dissection. Left internal carotid artery: Unremarkable. Extracranial segment is patent with no occlusion or significant stenosis. No dissection. Left vertebral artery: Unremarkable. No occlusion or significant stenosis. No dissection. NECK: Bones/joints: Unremarkable. No acute fracture. Soft tissues: Unremarkable. Lung apices: Clear. CAROTID STENOSIS REFERENCE USING NASCET CRITERIA: % ICA stenosis = (1 - narrowest ICA diameter/diameter of distal cervical ICA) x 100. Mild - <50% stenosis. Moderate - 50-69% stenosis. Severe - 70-94% stenosis. Near occlusion - 95-99% stenosis. Occluded - 100% stenosis. IMPRESSION: Negative CTA neck. Communications: Call Doctor Stroke Electronically signed by: Darius Ventura MD 02/21/24 19:42 PM Discharge Plan Visit Data Chief Complaint: Hypertension Stated Complaint: HYPERTENSION ED Provider: Michael Adames Discharge Problem: TIA (transient ischemic attack), Facial paresthesia, Hypertension Forms Stand Alone Forms: My [facility] Prescriptions Prescriptions: No Action sumatriptan succinate 50 mg tablet 50 mg PO DIRECTED MDD 2 DOSES/24 HOURS PRN (Reason: Migraine Headache) Rx Instructions: TAKE AT ONSET OF FOSTER, MAY REPEAT EVERY 2 HOURS IF NEEDED, MAX 2 DOSES IN 24 HOURS. acetaminophen 500 mg Tablet 1,000 mg PO Q8H PRN (Reason: Pain) quetiapine 300 mg tablet 300 mg PO HS meloxicam 7.5 mg tablet 7.5 mg PO QAM famotidine 20 mg tablet 20 mg PO BID PRN (Reason: Heartburn) dextroamphetamine-amphetamine 20 mg capsule,extended release 24hr 20 mg PO QAM omeprazole 20 mg capsule,delayed release(DR/EC) 20 mg PO DAILYBB PRN (Reason: Heartburn) hydroxyzine HCl 25 mg tablet 25 mg PO Q6H PRN (Reason: Anxiety) polyethylene glycol 3350 17 gram/dose Powder 17 g PO DAILY PRN (Reason: Constipation) Referrals Referrals: Apolinar Rice MD [Primary Care Provider] - Discharge Problem: Hypertension Qualifiers: Hypertension type: unspecified Qualified Code(s): I10 - Essential (primary) hypertension
[2024-02-21] MEDS: OPTIRAY 320 125ml IV ONE (19:16)
[2024-02-21 19:34] LABS: Basophils # (auto) 0.03 K/uL (0.00-0.20); Basophils % (auto) 0.6 %; Eosinophils % (auto) 2.1 %; Hematocrit (blood only) 34.8 % (37.0-47.0); Hemoglobin 12.2 g/dl (12.0-16.0); Immature Granulocytes # (auto) 0.01 K/uL (0.01-0.20); Immature Granulocytes % (auto) 0.2 %; Lymphocytes # (auto) 1.64 K/uL (1.20-3.40); Lymphocytes % (auto) 34.2 %; Mean Corpuscular Hemoglobin 33.5 pg (25.0-34.0); Mean Corpuscular Hgb Conc 35.1 g/dL (32.0-36.0); Mean Corpuscular Volume 95.6 fL (80.0-100.0); Mean Platelet Volume 10.5 fL (9.4-12.4); Monocytes # (auto) 0.34 K/uL (0.11-0.59); Monocytes % (auto) 7.1 %; Neutrophils # (auto) 2.67 K/uL (1.40-6.50); Neutrophils % (auto) 55.8 %; Platelet Count 284 K/uL (130-400); RDW Coefficient of Variation 11.7 % (11.5-14.5); RDW Standard Deviation 40.9 fL (36.4-46.3); Red Blood Count 3.64 M/uL (4.20-5.40); White Blood Count 4.79 K/ul (4.8-10.8)
--- NOTE | 2024-02-21 19:38 | CT Scan Report ---
Exam(s): CT HEAD Without Contrast EXAM: CT Head Without Intravenous Contrast CLINICAL HISTORY: Reason for exam: neuro deficit, acute stroke suspected. TECHNIQUE: Axial computed tomography images of the head/brain without intravenous contrast. CTDI is 44.38 mGy and DLP is 677.48 mGy-cm. Automated exposure control was utilized for the study. A dose lowering technique was utilized adhering to the principles of ALARA. COMPARISON: No relevant prior studies available. FINDINGS: Brain: No hemorrhage, extra-axial fluid collection, mass effect, or edema. Ventricles: Unremarkable. Bones/joints: Unremarkable. No fracture. Soft tissues: Unremarkable. Sinuses: No acute sinusitis. Mastoid air cells: Unremarkable as visualized. IMPRESSION: 1. No acute intracranial abnormality. Communications: Call Doctor Stroke Electronically signed by: Darius Ventura MD 02/21/24 19:37 PM
--- NOTE | 2024-02-21 19:41 | CT Scan Report ---
Exam(s): CTA HEAD With Contrast IV Amt: 116 ml optiray 320 EXAM: CT Angiography Head With Intravenous Contrast CLINICAL HISTORY: Reason for exam: neuro deficit, acute stroke suspected. TECHNIQUE: Axial computed tomographic angiography images of the head with intravenous contrast. CTDI is 72 mGy and DLP is 1132.7 mGy-cm. Automated exposure control was utilized for the study. A dose lowering technique was utilized adhering to the principles of ALARA. MIP reconstructed images were created and reviewed. CONTRAST: Patient received 116 ml optiray 320 of IV contrast COMPARISON: No relevant prior studies available. FINDINGS: Right internal carotid artery: No acute findings. Intracranial segment is patent with no significant stenosis. No aneurysm. Right anterior cerebral artery: Unremarkable. No occlusion or significant stenosis. No aneurysm. Right middle cerebral artery: Unremarkable. No occlusion or significant stenosis. No aneurysm. Right posterior cerebral artery: Unremarkable. No occlusion or significant stenosis. No aneurysm. Right vertebral artery: Unremarkable as visualized. Left internal carotid artery: No acute findings. Intracranial segment is patent with no significant stenosis. No aneurysm. Left anterior cerebral artery: Unremarkable. No occlusion or significant stenosis. No aneurysm. Left middle cerebral artery: Unremarkable. No occlusion or significant stenosis. No aneurysm. Left posterior cerebral artery: Unremarkable. No occlusion or significant stenosis. No aneurysm. Left vertebral artery: Unremarkable as visualized. Basilar artery: Unremarkable. No occlusion or significant stenosis. No aneurysm. IMPRESSION: Normal head CTA. Communications: Call Doctor Stroke Electronically signed by: Darius Ventura MD 02/21/24 19:40 PM
[2024-02-21 19:43] LABS: Albumin Globulin Ratio 1.5 (0.9-2); Albumin Level 4.3 gm/dl (3.4-5.0); BUN Creatinine Ratio 25.3 (10-20); Bilirubin,Total 0.5 mg/dl (0.2-1.0); Calcium 9.4 mg/dl (8.6-10.3); Creatinine Clr Calc Pharmacy 101.2 ml/min; Est GFR (African American) 107.7 ml/min; Est GFR (Non-African American) 92.9 ml/min; Globulin 2.8 gm/dl (2.5-4.0); Magnesium 1.8 mg/dl (1.7-2.4); Potassium 3.4 mmol/L (3.5-5.1); Total Protein 7.1 gm/dl (6.0-8.3)
--- NOTE | 2024-02-21 19:43 | CT Scan Report ---
Exam(s): CTA NECK With Contrast IV Amt: 116 ml optiray 320 EXAM: CT Angiography Neck With Intravenous Contrast CLINICAL HISTORY: Reason for exam: neuro deficit, acute stroke suspected. TECHNIQUE: Routine carotid CT angiography protocol was performed with intravenous contrast. NASCET criteria using the distal ICAs for comparison were used for evaluation of stenoses. CTDI is 72 mGy and DLP is 1132.7 mGy-cm. Automated exposure control was utilized for the study. A dose lowering technique was utilized adhering to the principles of ALARA. MIP reconstructed images were created and reviewed. CONTRAST: Patient received 116 ml optiray 320 of IV contrast COMPARISON: None. FINDINGS: VASCULATURE: Right common carotid artery: Unremarkable. No occlusion or significant stenosis. No dissection. Right internal carotid artery: Unremarkable. Extracranial segment is patent with no occlusion or significant stenosis. No dissection. Right vertebral artery: Unremarkable. No occlusion or significant stenosis. No dissection. Left common carotid artery: Unremarkable. No occlusion or significant stenosis. No dissection. Left internal carotid artery: Unremarkable. Extracranial segment is patent with no occlusion or significant stenosis. No dissection. Left vertebral artery: Unremarkable. No occlusion or significant stenosis. No dissection. NECK: Bones/joints: Unremarkable. No acute fracture. Soft tissues: Unremarkable. Lung apices: Clear. CAROTID STENOSIS REFERENCE USING NASCET CRITERIA: % ICA stenosis = (1 - narrowest ICA diameter/diameter of distal cervical ICA) x 100. Mild - <50% stenosis. Moderate - 50-69% stenosis. Severe - 70-94% stenosis. Near occlusion - 95-99% stenosis. Occluded - 100% stenosis. IMPRESSION: Negative CTA neck. Communications: Call Doctor Stroke Electronically signed by: Darius Ventura MD 02/21/24 19:42 PM
[2024-02-21 19:50] LABS: Troponin I High Sensitivity 3.2 pg/ml (0-14)
[2024-02-21 19:57] LABS: Partial Thromboplastin Ratio 0.9; Partial Thromboplastin Time 25 Seconds (21-31); Prothrombin Time 10.5 Seconds (9.0-12.0)
--- NOTE | 2024-02-21 21:04 | History & Physical Report ---
Date of Service February 21, 2024 Assessment & Plan (1) Facial paresthesia: (2) Hypertensive urgency: (3) Hypokalemia: Plan: HPI, ROS, PE, med rec completed by Maria C Corea PA-C. Assessment and Plan per Dr Valentine. See addendum. History of Present Illness Chief Complaint: Facial numbness Primary Care Provider: Apolinar Rice MD Patient is 49-year-old female with PMH ADHD, anxiety, depression, insomnia, migraine, pre-diabetes presented to ER with c/o facial numbness. History obtained from patient and outpatient chart review. Patient states today had some discomfort posterior shoulder that radiated to left neck. She thought it was muscular and took Tylenol and applied Biofreeze. She states she felt like those things helped decrease the left shoulder and neck discomfort and then she took a nap. She reports when her daughter got home she felt that her left side of her mouth appeared droopy. When patient looked in the mirror she felt that the right side of her mouth appeared droopy. She noted "weird" sensation to right side of face which she reports is difficult to describe however feels like has some decreased sensation and possibly some tingling sensation. She reports that she is unable to close her left eye and her left eye is tearing. Also reports intermittent twitching of her left eyelid. She feels that her right eyelid is more droopy. Feels like having some discomfort to lower occipital region of head now. Denies any difficulty swallowing. She feels she is having trouble raising her eyebrows. Denies any noted speech changes. Denies extremity weakness or paresthesias. Patient denies any increased stress and feels her moods are baseline. She reports takes Seroquel for insomnia and denies any recent dosage changes. Typically on Adderall for ADHD however has had difficulty obtaining from pharmacy so was switched to Vyvanse but now rep orts is back to taking Adderall. Patient reports prior history of migraines headaches which would present with generalized headache with photophobia and phonophobia. Patient states symptoms today do not feel like her typical migraine. Denies any injury, fall. Denies fever/chills, diaphoresis, N/V/D/C, dizziness, syncope, vision changes, neck pain, CP, SOB, palpitations, cough, sore throat, choking, otalgia, rhinorrhea, abdominal pain, extremity edema, rashes, urinary symptoms. Denies cosmetic procedures or injections to face. Allergies Allergy/AdvReac Type Severity Reaction Status Date / Time ketorolac [From Toradol] Allergy Intermediate Hives Verified 12/18/23 20:22 Home Medications Medication Instructions Recorded Confirmed Type sumatriptan succinate 50 mg tablet 50 mg PO DIRECTED PRN Migraine 06/15/21 02/21/24 History Headache acetaminophen 500 mg tablet 1,000 mg PO Q8H PRN Pain 12/14/21 02/21/24 History dextroamphetamine-amphetamine ER 20 mg PO QAM 12/18/23 02/21/24 History 20 mg 24hr capsule,extend release famotidine 20 mg tablet 20 mg PO BID PRN Heartburn 12/18/23 02/21/24 History hydroxyzine HCl 25 mg tablet 25 mg PO Q6H PRN Anxiety 12/18/23 02/21/24 History meloxicam 7.5 mg tablet 7.5 mg PO QAM 12/18/23 02/21/24 History omeprazole 20 mg capsule,delayed 20 mg PO DAILYBB PRN Heartburn 12/18/23 02/21/24 History release quetiapine 300 mg tablet 300 mg PO HS 12/18/23 02/21/24 History polyethylene glycol 3350 17 17 g PO DAILY PRN Constipation 02/21/24 02/21/24 History gram/dose oral powder Past Med/Surg History Problem List (Updated 02/21/24 @ 23:31 by Michael Adames DO) Hypertension (Acute) TIA (transient ischemic attack) (Acute) Hypertensive urgency Hypomagnesemia Hypokalemia Facial paresthesia (Acute) ADHD Anxiety Costochondritis (Acute) Chest pain (Acute) Surgical History History of arthroscopic surgery of elbow History of section Family History Father COPD (chronic obstructive pulmonary disease) Mother COPD (chronic obstructive pulmonary disease) Sister Hypertension Social History Smoking Status: Former smoker Tobacco Type: E-cigarettes / Vaping Do You Dip or Chew Tobacco: No; Hx Alcohol Use: No Hx Substance Use: No Preferred Language: Kosovan Communication Ability: Effective Night Warehouse Manager Required: No Beliefs That Will Affect Care: None Current Living Situation: Family Current Living Situation Comment: home with 2 kids How many Children do You have: 2 Other Information That Helps Us Care for You: No Feels Safe at Home: Yes Safety Concerns: Feels Safe At This Time Assistive Devices: Glasses Review of Systems Review of Systems: All systems reviewed & are unremarkable except as noted in HPI & below Physical Exam Physical Exam: General: no distress, obese Head: normocephalic, atraumatic Eyes: PERRL, EOM's intact, conjunctiva non-injected, anicteric, +intermittent twitching left upper eyelid ENT: normal inspection external ears, nose, mucous membranes moist Neck: supple, trachea midline, non-tender to palpation neck or trapezius or shoulder region Lungs: clear, no respiratory distress, no wheezing/rhonchi/rales CV: RRR, no murmur, no pretibial edema Abd: normal BS, soft, non-tender Ext: no cyanosis, no calf tenderness Neuro: A&O x 3, normal affect. No nystagmus, right eyelid appears more droopy than left. States unable to close left eye, +tearing noted to left eye. States unable to raise eyebrows however noted during conversation both eyebrows elevate and forehead wrinkles bilaterally. Face otherwise appears symmetric. Reports is unable to smile or frown. During conversation mouth appears to be moving symmetrically. Reports decreased sensation to right side of face. hearing grossly intact, soft palate elevates symmetrically, no dysarthria, shoulder shrug intact, tongue is midline, normal movement, no fasciculations. BUE and BLE strength 5/5 Skin: warm, dry Results & Data Results & Data Vital Signs (Past 12 Hours) Vital Signs Temp Pulse Pulse Resp BP BP Pulse Ox 02/21/24 20:23 91 H 22 161/114 H 98 02/21/24 18:41 85 02/21/24 18:35 37 C 87 22 156/100 H 98 O2 Del Method 02/21/24 20:23 Room Air 02/21/24 18:41 02/21/24 18:35 Room Air Laboratory Results Short CBC 02/21/24 Range/Units 18:50 WBC 4.79 L (4.8-10.8) K/ul Hgb 12.2 (12.0-16.0) g/dl Hct 34.8 L (37.0-47.0) % Plt Count 284 (130-400) K/uL BMP 02/21/24 18:50 Sodium 140 Potassium 3.4 L Chloride 107 Carbon Dioxide 26 BUN 19 Creatinine 0.75 Glucose 118 H Calcium 9.4 Liver Function 02/21/24 Range/Units 18:50 Total Bilirubin 0.5 (0.2-1.0) mg/dl AST 19 (13-39) U/L ALT 22 (7-52) U/L Alkaline Phosphatase 78 (34-104) U/L Albumin 4.3 (3.4-5.0) gm/dl Diagnostic Findings Head CT 02/21/24 19:07 CR Exam(s): CT HEAD Without Contrast EXAM: CT Head Without Intravenous Contrast CLINICAL HISTORY: Reason for exam: neuro deficit, acute stroke suspected. TECHNIQUE: Axial computed tomography images of the head/brain without intravenous contrast. CTDI is 44.38 mGy and DLP is 677.48 mGy-cm. Automated exposure control was utilized for the study. A dose lowering technique was utilized adhering to the principles of ALARA. COMPARISON: No relevant prior studies available. FINDINGS: Brain: No hemorrhage, extra-axial fluid collection, mass effect, or edema. Ventricles: Unremarkable. Bones/joints: Unremarkable. No fracture. Soft tissues: Unremarkable. Sinuses: No acute sinusitis. Mastoid air cells: Unremarkable as visualized. IMPRESSION: 1. No acute intracranial abnormality. Communications: Call Doctor Stroke Electronically signed by: Darius Ventura MD 02/21/24 19:37 PM Head CTA 02/21/24 19:07 CR Exam(s): CTA HEAD With Contrast IV Amt: 116 ml optiray 320 EXAM: CT Angiography Head With Intravenous Contrast CLINICAL HISTORY: Reason for exam: neuro deficit, acute stroke suspected. TECHNIQUE: Axial computed tomographic angiography images of the head with intravenous contrast. CTDI is 72 mGy and DLP is 1132.7 mGy-cm. Automated exposure control was utilized for the study. A dose lowering technique was utilized adhering to the principles of ALARA. MIP reconstructed images were created and reviewed. CONTRAST: Patient received 116 ml optiray 320 of IV contrast COMPARISON: No relevant prior studies available. FINDINGS: Right internal carotid artery: No acute findings. Intracranial segment is patent with no significant stenosis. No aneurysm. Right anterior cerebral artery: Unremarkable. No occlusion or significant stenosis. No aneurysm. Right middle cerebral artery: Unremarkable. No occlusion or significant stenosis. No aneurysm. Right posterior cerebral artery: Unremarkable. No occlusion or significant stenosis. No aneurysm. Right vertebral artery: Unremarkable as visualized. Left internal carotid artery: No acute findings. Intracranial segment is patent with no significant stenosis. No aneurysm. Left anterior cerebral artery: Unremarkable. No occlusion or significant stenosis. No aneurysm. Left middle cerebral artery: Unremarkable. No occlusion or significant stenosis. No aneurysm. Left posterior cerebral artery: Unremarkable. No occlusion or significant stenosis. No aneurysm. Left vertebral artery: Unremarkable as visualized. Basilar artery: Unremarkable. No occlusion or significant stenosis. No aneurysm. IMPRESSION: Normal head CTA. Communications: Call Doctor Stroke Electronically signed by: Darius Ventura MD 02/21/24 19:40 PM Neck CTA 02/21/24 19:07 CR Exam(s): CTA NECK With Contrast IV Amt: 116 ml optiray 320 EXAM: CT Angiography Neck With Intravenous Contrast CLINICAL HISTORY: Reason for exam: neuro deficit, acute stroke suspected. TECHNIQUE: Routine carotid CT angiography protocol was performed with intravenous contrast. NASCET criteria using the distal ICAs for comparison were used for evaluation of stenoses. CTDI is 72 mGy and DLP is 1132.7 mGy-cm. Automated exposure control was utilized for the study. A dose lowering technique was utilized adhering to the principles of ALARA. MIP reconstructed images were created and reviewed. CONTRAST: Patient received 116 ml optiray 320 of IV contrast COMPARISON: None. FINDINGS: VASCULATURE: Right common carotid artery: Unremarkable. No occlusion or significant stenosis. No dissection. Right internal carotid artery: Unremarkable. Extracranial segment is patent with no occlusion or significant stenosis. No dissection. Right vertebral artery: Unremarkable. No occlusion or significant stenosis. No dissection. Left common carotid artery: Unremarkable. No occlusion or significant stenosis. No dissection. Left internal carotid artery: Unremarkable. Extracranial segment is patent with no occlusion or significant stenosis. No dissection. Left vertebral artery: Unremarkable. No occlusion or significant stenosis. No dissection. NECK: Bones/joints: Unremarkable. No acute fracture. Soft tissues: Unremarkable. Lung apices: Clear. CAROTID STENOSIS REFERENCE USING NASCET CRITERIA: % ICA stenosis = (1 - narrowest ICA diameter/diameter of distal cervical ICA) x 100. Mild - <50% stenosis. Moderate - 50-69% stenosis. Severe - 70-94% stenosis. Near occlusion - 95-99% stenosis. Occluded - 100% stenosis. IMPRESSION: Negative CTA neck. Communications: Call Doctor Stroke Electronically signed by: Darius Ventura MD 02/21/24 19:42 PM Supervising Physician Co-Signing Physician Notes IM ATTENDING : Patient seen and examined. History obtained from patient and records. Concur with salient points upon review of preceding documentation by Ms. Maria C Corea PA-C. I take responsibility for plan of care below. FINAL ASSESSMENT AND PLAN as follows : Strokelike symptoms with headache symptoms Vague neurologic exam ? Complicated migraine Hypertension, slightly elevated Hypokalemia Prediabetes, outpatient hemoglobin A1c of 5.25 November 2023 ADD/mood disorder, at baseline Ongoing vape use OBS Medical telemetry Neurochecks Permissive hypertension, aspirin for stroke prevention until stroke ruled out MRI brain Neurology consult re: strokelike symptoms Replace potassium DVT prophylaxis. Lovenox subcu Full code Text document was generated using [employer] voice recognition software. It may contain grammatical or spelling errors. Kindly contact undersigned for clarification of any documentation item in question.
[2024-02-21] MEDS: ACETAMINOPHEN 325 MG TAB PO STA (21:30)
[2024-02-21] MEDS: MAGNESIUM SULFATE / D5W 1 GM/100 ML BAG IV ONE (21:30)
[2024-02-21] MEDS: POTASSIUM CHLORIDE 20 MEQ in LACTATED RINGER'S 1,000 ML IV ONE (21:35)
[2024-02-21] MEDS ORDERED: PHARMACIST DISCHARGE MED REC CONSULT PRN (22:20)
[2024-02-21] MEDS ORDERED: PROMETHAZINE 6.25 MG/50.25 ML BAG IV PRN (22:21)
[2024-02-21] MEDS ORDERED: oxyCODONE HCL IR 5 MG TAB (IMMEDIATE RELEASE) PO PRN (22:21)
[2024-02-21] MEDS: ASPIRIN 81 MG CHEW PO STA (23:29)
[2024-02-21] MEDS: LORazepam 2 MG/1 ML VIAL IV STA (23:31)
[2024-02-22] MEDS: GADOBUTROL 65ML VIAL IV ONE (00:01)
[2024-02-22] MEDS ORDERED: MELATONIN 3 MG TAB PO PRN (00:39)
[2024-02-22] MEDS ORDERED: FAMOTIDINE 20 MG TAB PO PRN (00:40)
[2024-02-22] MEDS ORDERED: POLYETHYLENE (MIRALAX) 17 GM PACK PO PRN (00:40)
[2024-02-22] MEDS ORDERED: PANTOprazole 40 MG TAB PO PRN (00:46)
[2024-02-22 01:16] VITALS: RESP 18
[2024-02-22] MEDS: oxyCODONE HCL IR 5 MG TAB (IMMEDIATE RELEASE) PO STA (01:20)
[2024-02-22] MEDS: QUEtiapine FUMARATE 300 MG TABLET PO SCH (01:21)
[2024-02-22] MEDS: LORazepam 0.5 MG TAB PO PRN (02:43)
--- NOTE | 2024-02-22 02:53 | Magnetic Resonance Report ---
Exam(s): MRI HEAD W/WO Contrast IV Amt: 9cc gadavist EXAM: MR Head Without and With Intravenous Contrast CLINICAL HISTORY: Reason for exam: larios, numbness. TECHNIQUE: Magnetic resonance images of the head/brain without and with intravenous contrast in multiple planes. CONTRAST: Patient received 9cc gadavist of IV contrast COMPARISON: Prior head CT from February 21, 2024. FINDINGS: Brain: Minimal nonspecific white matter changes. No mass. No hemorrhage. No acute infarct. The flow voids of the base of the brain are intact. Normal vascular brain parenchyma. The dural venous sinuses are patent. Ventricles: Unremarkable. No ventriculomegaly. Bones/joints: Mild to moderate facet arthropathy at C2-3 and C3-4. No acute fracture. Sinuses: Unremarkable as visualized. No acute sinusitis. Mastoid air cells: Tiny amount of fluid in the mastoid air cells. No mastoid effusion. Orbits: Unremarkable as visualized. IMPRESSION: No evidence of acute intracranial pathology. Minimal nonspecific white matter changes. Electronically signed by: Kiesha Bhat MD 02/22/24 02:52 AM
--- OUTSIDE RECORDS SUMMARY | 2024-02-22 05:46 | External Medical Summary | Summary of Care ---
Author Name Unknown Organization [facility] Address [address] [address] Phone [phone] Care Team Providers Care Lay Out Inspector Name Role Phone Apolinar Rice MD Primary Care Provider + Reason for Visit * Reason Onset Date Comments Pre Cert/Prior Auth 02/16/2024 Encounter Details Date Type Department Care Team (Late st Contact Info) Description 02/16/2024 Telephone Tariq Nieves [address] [place] [id number] Nito Jiang CRNP [address] [place] [id number] Pre Cert/Prior Auth Allergies Active Allergy Reactions Criticality Noted Date Comments Ketorolac High 01/07/2022 Other Reaction(s): Hives documented as of this encounter (statuses as of 02/16/2024) Medications Medication Sig Dispensed Refills Start Date End Date Status /Folic Acid Oral Tablet Take 1 Tab by mouth daily. Active Acetaminophen 500 MG Oral Tablet (Tylenol)Indication s:Chest pain, unspecified type Take 2 Tablets by mouth every 8 hours as needed for Pain, Severe. 100 Tablet 06/30/2021 Active hydrOXYzine HCl 25 MG Oral TabletIndications:G AD (generalized anxiety disorder) TAKE 1 TABLET BY MOUTH EVERY 6 HOURS NEEDED FOR ANXIETY 40 Tablet 2 05/09/2023 Active SUMAtriptan Succinate 50 MG Oral Tablet (Imitrex)Indication s:Chronic insomnia Take 1 tablets at onset of migraine and one tablet every 2 hours as needed, not more than 2 tablets in 24 hours 6 Tablet 5 05/15/2023 Active Meloxicam 7.5 MG Oral Tablet (Mobic)Indications: Atypical chest pain,Cervical radiculopathy,Thora cic radiculopathy,Chest pain, unspecified type TAKE 2 TABLETS BY MOUTH IN THE MORNING FOR PAIN 60 Tablet 2 10/03/2023 Active Linzess 290 MCG Oral Capsule (linaCLOtide)Indica tions:Chronic constipation Take 1 Capsule by mouth daily before breakfast. 90 Capsule 11/29/2023 Active Omeprazole 20 MG Oral Capsule Delayed Release (PriLOSEC)Indicatio ns:Acute gastritis without hemorrhage, unspecified gastritis type TAKE 1 CAPSULE BY MOUTH ONCE DAILY IN THE MORNING 1 HOUR BEFORE THE FIRST MEAL OF THE DAY 90 Capsule 11/29/2023 Active valACYclovir HCl 1 GM Oral Tablet (Valtrex)Indication s:Cold sore Take 2 Tablets by mouth in the morning and 2 Tablets before bedtime. For 1 day for cold sores. 12 Tablet 12/20/2023 Active Polyethylene Glycol 3350 17 GM/SCOOP Oral Powder (MiraLax)Indication s:Constipation, unspecified constipation type Take 17 g by mouth daily as needed for Constipation. Dissolve one heaping tablespoon in 8 ounces of water or juice. 510 g 3 12/26/2023 Active Famotidine 20 MG Oral Tablet (Pepcid)Indications :Greater trochanteric pain syndrome of right lower extremity,Pain of right thigh,Chronic pain of right knee,Lumbar degenerative disc disease Take 1 tablet by mouth twice daily 60 Tablet 5 12/28/2023 Active QUEtiapine Fumarate 300 MG Oral Tablet (SEROquel) Take 1 Tablet by mouth at bedtime. 90 Tablet 1 01/24/2024 Active Lisdexamfetamine Dimesylate 40 MG Oral Capsule (Vyvanse) Take 1 Capsule by mouth in the morning. 30 Capsule 01/26/2024 Active predniSONE 20 MG Oral Tablet (Deltasone) Take 3 tabs for 3 days, 2 tabs for 3 days, 1 tab for 3 days, 1/2 tab for 3 days 20 Tablet 01/30/2024 Active Baclofen 10 MG Oral Tablet (Lioresal)Indicatio ns:Flank pain TAKE 1 TABLET BY MOUTH TWICE DAILY NEEDED FOR BREAKTHROUGH PAIN 60 Tablet 02/12/2024 Active documented as of this encounter (statuses as of 02/16/2024) Active Problems Problem Noted Date Diagnosed Date Prediabetes 08/25/2022 DAVIDE (generalized anxiety disorder) 06/26/2020 Panic disorder 06/26/2020 Chronic insomnia 06/26/2020 ADHD (attention deficit hype ractivity disorder), combined type 06/26/2020 Chronic constipation 06/26/2020 Migraine variant 06/26/2020 Tobacco abuse 06/26/2020 documented as of this encounter (statuses as of 02/16/2024) Immunizations Name Administration Dates Next Due PPD 11/17/2010 Pneumococcal Polysaccharide PPV23 (Pneumovax) 06/26/2020 Seasonal Influenza Virus Vac cine, Unspecified Formulation 05/10/2021,03/19/2020 Seasonal Influenza, PF, 6 M & above, IM , (FluLaval or Fluzone) 08/24/2022,05/10/2021,03/19/2020 Seasonal Influenza, QUAD, wi th Preserv, 6 mons & Above, 0.5 mL, IM 04/18/2019 Seasonal Influenza, Quadriva lent, No Preserve, IM 05/10/2021,03/19/2020 TDAP (age 10 and older)(Boostrix) 06/26/2020 documented as of this encounter Social History Tobacco Use Types Packs/Day Years Used Date Smoking Tobacco: Former Cigarettes Q uit: 05/03/2021 Smokeless Tobacco: Never Alcohol Use Standard Drinks/Week Comments Never 0 (1 standard drink = 0.6 oz pur e alcohol) AUDIT-C Answer Date Recorded Q1: How often do you have a drink containing alc ohol? Never 06/26/2020 Q2: How many drinks containi ng alcohol do you have on a typical day when you are drinking? Not asked 06/26/2020 Q3: How often do you have six or more drinks on one occasion? Never 06/26/2020 PHQ-2 Answer Date Recorded PHQ Adult Total Score 1 08/24/2022 Hunger Vital Sign Answer Date Recorded Within the past 12 months, y ou worried that your food would run out before you got the money to buy more. Never true 09/25/19 21 Within the past 12 months, t he food you bought just didn't last and you didn't have money to get more. Never true 09/24/2020 Utilities Answer Date Recorded Do you have trouble paying y our heating, water, or electric bill? (Adult - for ages 18 years and over) Not on file 12/05/2023 Is your family able to pay t he heat, water, or electric bill? (Household - for ages 0-17 years) Not on file 12/05/2023 Does your family have access to good internet? (Household - for ages 0-17 years) Not on file 12/05/2023 Social Connections Answer Date Recorded How often do you feel lonely or isolated from those around you? (Adult - for ages 18 years and over) Not on file 12/05/2023 Sex and Gender Information Value Date Recorded Sex Assigned at Female 06/26/2020 10:53 AM EST Gender Identity Female 06/26/2020 10:53 AM EST Sexual Orientation Straight 06/26/2020 10 :53 AM EST Job Start Date Occupation Industry Not on file Not on file Not on file documented as of this encounter Miscellaneous Notes * Telephone Encounter - Kenzie Lipscomb LPN - 02/16/2024 10:03 AM EDT .pPsychiatry Pre-Cert Request Medication/Disease State Information: Medication: Lisdexamfetamine Dimesylate 40 MG Oral Capsule (Vyvanse) Diagnosis (including ICD-10): f90.0 Medication(s) Tried/Failed/Contraindicated: unknown See corresponding visit note(s) for additional supporting clinical information. Office Information: Prescriber: Nito Jiang Sig Take 1 Capsule by mouth in the morning documented in this encounter Plan of Treatment Upcoming Encounters Date Type Department Care Team (Late st Contact Info) Description 04/02/2024 2:00 PM EDT Office Visit General Internal Medicine [place] [address] [place] [id number] Apolinar Rice MD [address] [facility] [place] [address] Scheduled Procedures Name Priority Associated Diagnoses Date/Ti me COLONOSCOPY FLEXIBLE PROXIMA L DIAGNOSTIC Recall Special screening for malignant neoplasms, colon Health Maintenance Due Date Last Done Comments Hepatitis C Screening 01/10/1992 Hepatitis B Vaccine (1 of 3 - 19+ 3-dose series) 1993 Pap Smear 1995 Cervical Cancer Screening 01/10/2004 HPV/Co-Test 01/10/2004 Cologuard 2019 Colonoscopy 2019 Colorectal Cancer Screening 2019 Fecal Occult Blood Test 2019 Sigmoidoscopy 2019 Mammogram 03/18/2020 03/18/2019 COVID-19 Vaccine (2 - 2022- season) 2023 04/01/2022 Depression Screening 08/25/2023 08/24/2022 Zoster Vaccines (1 of 2) 01/10/2024 Influenza Vaccine (FLU shot) (#1) 2024 08/24/2022, 05/10/2021, 05/10/2021, Additional history exists HbA1c 11/21/2024 11/22/2023, 03/0 01/2023, 01/29/2021 Lipid Panel 11/21/2028 11/22/2023, 03/0 01/2023, 01/29/2021, Additional history exists DTap/Tdap Vaccines (2 - Td or Tdap) 06/26/2030 06/26/2020 Pneumococcal Vaccine: Pediatrics (0 to 5 Years) and At-Risk Patients (6 to 64 Years) Aged Out 06/26/2020 No longer eligible based on patient's age to complete this topic HPV (Gardasil) Vaccine Aged Out No lo nger eligible based on patient's age to complete this topic MENINGOCOCCAL (MENACTRA/MENVEO) Aged Out No longer eligible based on patient's age to complete this topic documented as of this encounter Medical Devices Not on filedocumented as of this encounter Care Teams Lay Out Inspector Relationship Specialty Start Date End Date Apolinar Rice MD [address] [facility] [place] [address] PCP - General Internal Medicine 06/26/20 documented as of this encounter
--- OUTSIDE RECORDS SUMMARY | 2024-02-22 05:46 | External Medical Summary | Summary of Care ---
Author Name Unknown Organization [facility] Address [address] [facility] [address] Phone [phone] Care Team Providers Care Lock Stitch Channeler Name Role Phone Apolinar Rice MD Primary Care Provider + Reason for Visit * Reason Onset Date Comments Precert In Process 02/16/2024 3 [facility] Lisdexamfetamine Dimesylate 40MG Encounter Details Date Type Department Care Team (Late st Contact Info) Description 02/16/2024 Telephone Tariq Nieves [address] [place] [address] Nito Jiang CRNP [address] [place] [address] Precert In Process (3 [facility]... Allergies Active Allergy Reactions Criticality Noted Date Comments Ketorolac High 01/07/2022 Other Reaction(s): Hives documented as of this encounter (statuses as of 02/20/2024) Medications Medication Sig Dispensed Refills Start Date [...] as of this encounter (statuses as of 02/20/2024) Active Problems Problem Noted Date Diagnosed Date Prediabetes 08/25/2022 DAVIDE (generalized anxiety disorder) 06/26/2020 Panic disorder 06/26/2020 Chronic insomnia 06/26/2020 ADHD (attention deficit hype ractivity disorder), combined type 06/26/2020 Chronic constipation 06/26/2020 Migraine variant 06/26/2020 Tobacco abuse 06/26/2020 documented as of this encounter (statuses as of 02/20/2024) Immunizations Name Administration Dates Next Due PPD [...] encounter Miscellaneous Notes * Telephone Encounter - Lizeth Castelan OSA - 02/20/2024 2:12 PM EDT [facility] Authorization Submission Submission Information: Medication: Lisdexamfetamine Dimesylate 40MG capsules Portal used: [facility] Insurance: [employer] Authorization #/Portillo: [id number] Lizeth Castelan Medication Grain Elevator Worker [facility] 02/20/24,2:12 PM * Telephone Encounter - Kenzie Lipscomb LPN [...] PM EDT Office Visit [facility] [place] [address] [facility] [place] [address] Apolinar Rice MD [address] [facility] [place] [address] Scheduled Procedures Name Priority Associated Diagnoses Date/Ti [...] Test 2019 Sigmoidoscopy 2019 Mammogram 03/18/2020 03/18/2019 Depression Screening 08/25/2023 08/24/2022 Zoster Vaccines (1 of 2) 01/10/2024 COVID-19 Vaccine (2 - season) 2024 04/01/2022 Influenza Vaccine (FLU shot) (#1) 2024 08/24/2022, [...] filedocumented as of this encounter Care Teams Lock Stitch Channeler Relationship Specialty Start Date End Date Apolinar Rice MD [address] [facility] [place] [address] PCP - General Internal Medicine 06/26/20 documented as of this encounter
--- OUTSIDE RECORDS SUMMARY | 2024-02-22 05:46 | External Medical Summary | Summary of Care ---
Author Name Unknown Organization [facility] Address [address] [place] [address] Phone [phone] Care Team Providers Care Gettering Filament Machine Operator Name Role Phone Apolinar Rice MD Primary Care Provider + Reason for Visit * Reason Onset Date Comments Med Request 01/30/2024 Encounter Details Date Type Department Care Team (Late st Contact Info) Description 01/30/2024 Telephone General Internal Medicine [facility] [address] [facility] [place] [address] Apolinar Rice MD [address] [place] [address] Med Request Allergies Active Allergy Reactions Criticality Noted Date Comments Ketorolac High 01/07/2022 Other Reaction(s): Hives documented as of this encounter (statuses as of 01/30/2024) Medications Medication Sig Dispensed Refills Start Date End Date Status /Folic Acid Oral Tablet Take 1 Tab by mouth daily. Active Acetaminophen 500 MG Oral Tablet (Tylenol)Indicati ons:Chest pain, unspecified type Take 2 Tablets by mouth every 8 hours as needed for Pain, Severe. 100 Tablet 06/30/2021 Active hydrOXYzine HCl 25 MG Oral TabletIndications :DAVIDE (generalized anxiety disorder) TAKE 1 TABLET BY MOUTH EVERY 6 HOURS NEEDED FOR ANXIETY 40 Tablet 2 05/09/2023 Active SUMAtriptan Succinate 50 MG Oral Tablet (Imitrex)Indicati ons:Chronic insomnia Take 1 tablets at onset of migraine and one tablet every 2 hours as needed, not more than 2 tablets in 24 hours 6 Tablet 5 05/15/2023 Active Meloxicam 7.5 MG Oral Tablet (Mobic)Indication s:Atypical chest pain,Cervical radiculopathy,Tho racic radiculopathy,Lisa st pain, unspecified type TAKE 2 TABLETS BY MOUTH IN THE MORNING FOR PAIN 60 Tablet 2 10/03/2023 Active Linzess 290 MCG Oral Capsule (linaCLOtide)Kylee cations:Chronic constipation Take 1 Capsule by mouth daily before breakfast. 90 Capsule 11/29/2023 Active Omeprazole 20 MG Oral Capsule Delayed Release (PriLOSEC)Indicat ions:Acute gastritis without hemorrhage, unspecified gastritis type TAKE 1 CAPSULE BY MOUTH ONCE DAILY IN THE MORNING 1 HOUR BEFORE THE FIRST MEAL OF THE DAY 90 Capsule 11/29/2023 Active valACYclovir HCl 1 GM Oral Tablet (Valtrex)Indicati ons:Cold sore Take 2 Tablets by mouth in the morning and 2 Tablets before bedtime. For 1 day for cold sores. 12 Tablet 12/20/2023 Active Polyethylene Glycol 3350 17 GM/SCOOP Oral Powder (MiraLax)Indicati ons:Constipation, unspecified constipation type Take 17 g by mouth daily as needed for Constipation. Dissolve one heaping tablespoon in 8 ounces of water or juice. 510 g 3 12/26/2023 Active Famotidine 20 MG Oral Tablet (Pepcid)Indicatio ns:Greater trochanteric pain syndrome of right lower extremity,Pain of right thigh,Chronic pain of right knee,Lumbar degenerative disc disease Take 1 tablet by mouth twice daily 60 Tablet 5 12/28/2023 Active Baclofen 10 MG Oral Tablet (Lioresal)Indicat ions:Flank pain TAKE 1 TABLET BY MOUTH TWICE DAILY NEEDED FOR BREAKTHROUGH PAIN 60 Tablet 01/16/2024 Active QUEtiapine Fumarate 300 MG Oral Tablet [...] for 3 days 20 Tablet 01/30/2024 Active predniSONE 20 MG Oral Tablet (Deltasone)Indica tions:Flank pain Take 3 tabs for 3 days, 2 tabs for 3 days, 1 tab for 3 days, 1/2 tab for 3 days 20 Tablet 12/22/2023 Discontinue d(Patient preference/ discontinua tion) documented as of this encounter (statuses as of 01/30/2024) Active Problems Problem Noted Date Diagnosed Date Prediabetes 08/25/2022 DAVIDE (generalized anxiety disorder) 06/26/2020 Panic disorder 06/26/2020 Chronic insomnia 06/26/2020 ADHD (attention deficit hype ractivity disorder), combined type 06/26/2020 Chronic constipation 06/26/2020 Migraine variant 06/26/2020 Tobacco abuse 06/26/2020 documented as of this encounter (statuses as of 01/30/2024) Immunizations Name Administration Dates Next Due PPD [...] encounter Miscellaneous Notes * Telephone Encounter - Margarita Foster MED ASSIST - 01/30/2024 2:32 PM EDT Detailed message left for patient on self identifying voice mail. * Telephone Encounter - Apolinar Rice MD - 01/30/2024 2:23 PM EDT Refill given, but should schedule a visit to be seen for acute issue, may need further work up and I don't want to use prednisone too long due to side effects * Telephone Encounter - Aurora Frias LPN - 01/30/2024 2:11 PM EDT Patient is calling. She was seen a month ago for right flank pain in the ER. Pain started again last night. Calling to find out if she can have a prescription for prednisone. She doesn't want to have to go to [facility] ER again. Patient calling with c/o of pain- Located right flank pain Pain level 8/10 Type of pain stabbing Radiating to waist on right side Is this a new acute pain: Yes Is this a chronic problem that has changed: No Symptoms started 1 day(s) ago. What has the patient taken for pain relief: baclofen, is not effective for relief. Pharmacy selected Please advise documented in this encounter Plan of Treatment Upcoming Encounters Date Type Department Care Team (Late st Contact Info) Description 04/02/2024 2:00 PM EDT Office Visit General Internal Medicine [facility] [address] [facility] [place] [address] Apolinar Rice MD [address] [facility] [place] [address] Scheduled Procedures Name Priority Associated Diagnoses Date/Ti [...] 05/10/2021, Additional history exists HbA1c 11/21/2024 11/22/2023, 0 01/2023, 01/29/2021 Lipid Panel 11/21/2028 11/22/2023, 01/2023, 01/29/2021, Additional history exists DTaP,Tdap,and Td Vaccines (2 - Td or Tdap) 06/26/2030 [...] filedocumented as of this encounter Care Teams Gettering Filament Machine Operator Relationship Specialty Start Date End Date Apolinar Rice MD [address] [place] [address] PCP - General Internal Medicine 06/26/20 documented as of this encounter
--- OUTSIDE RECORDS SUMMARY | 2024-02-22 05:46 | External Medical Summary | Summary of Care ---
Author Name Unknown Organization [facility] Address [address] [place] [address] Phone [phone] Care Team Providers Care Representative Government Relations Name Role Phone Apolinar Martin MD Primary Care Provider + Reason for Visit * Reason Comments eRx-Medication Refill Encounter Details Date Type Department Care Team (Late st Contact Info) Description 02/10/2024 Refill General Internal Medicine [facility] [address] [facility] [place] [address] Apolinar Martin MD [address] [place] [address] Flank pain Allergies Active Allergy Reactions Criticality Noted Date Comments Ketorolac High 01/07/2022 Other Reaction(s): Hives documented as of this encounter (statuses as of 02/12/2024) Medications Medication Sig Dispensed Refills Start Date End Date Status /Folic Acid Oral Tablet Take 1 Tab by mouth daily. Active Acetaminophen 500 MG Oral Tablet (Tylenol)Indicati ons:Chest pain, unspecified type Take 2 Tablets by mouth every 8 hours as needed for Pain, Severe. 100 Tablet 2 Active hydrOXYzine HCl 25 MG Oral TabletIndications :DAVIDE (generalized anxiety disorder) TAKE 1 TABLET BY MOUTH EVERY 6 HOURS NEEDED FOR ANXIETY 40 Tablet 2 3 Active SUMAtriptan Succinate 50 MG Oral Tablet (Imitrex)Indicati ons:Chronic insomnia Take 1 tablets at onset of migraine and one tablet every 2 hours as needed, not more than 2 tablets in 24 hours 6 Tablet 5 3 Active Meloxicam 7.5 MG Oral Tablet (Mobic)Indication s:Atypical chest pain,Cervical radiculopathy,Tho racic radiculopathy,Lisa st pain, unspecified type TAKE 2 TABLETS BY MOUTH IN THE MORNING FOR PAIN 60 Tablet 2 4 Active Linzess 290 MCG Oral Capsule (linaCLOtide)Kylee cations:Chronic constipation Take 1 Capsule by mouth daily before breakfast. 90 Capsule 4 Active Omeprazole 20 MG Oral Capsule Delayed Release (PriLOSEC)Indicat ions:Acute gastritis without hemorrhage, unspecified gastritis type TAKE 1 CAPSULE BY MOUTH ONCE DAILY IN THE MORNING 1 HOUR BEFORE THE FIRST MEAL OF THE DAY 90 Capsule 4 Active valACYclovir HCl 1 GM Oral Tablet (Valtrex)Indicati ons:Cold sore Take 2 Tablets by mouth in the morning and 2 Tablets before bedtime. For 1 day for cold sores. 12 Tablet 4 Active Polyethylene Glycol 3350 17 GM/SCOOP Oral Powder (MiraLax)Indicati ons:Constipation, unspecified constipation type Take 17 g by mouth daily as needed for Constipation. Dissolve one heaping tablespoon in 8 ounces of water or juice. 510 g 3 4 Active Famotidine 20 MG Oral Tablet (Pepcid)Indicatio ns:Greater trochanteric pain syndrome of right lower extremity,Pain of right thigh,Chronic pain of right knee,Lumbar degenerative disc disease Take 1 tablet by mouth twice daily 60 Tablet 5 4 Active QUEtiapine Fumarate 300 MG Oral Tablet (SEROquel) Take 1 Tablet by mouth at bedtime. 90 Tablet 1 4 Active Lisdexamfetamine Dimesylate 40 MG Oral Capsule (Vyvanse) Take 1 Capsule by mouth in the morning. 30 Capsule 4 Active predniSONE 20 MG Oral Tablet (Deltasone) Take 3 tabs for 3 days, 2 tabs for 3 days, 1 tab for 3 days, 1/2 tab for 3 days 20 Tablet 4 Active Baclofen 10 MG Oral Tablet (Lioresal)Indicat ions:Flank pain TAKE 1 TABLET BY MOUTH TWICE DAILY NEEDED FOR BREAKTHROUGH PAIN 60 Tablet 4 Active Baclofen 10 MG Oral Tablet (Lioresal)Indicat ions:Flank pain TAKE 1 TABLET BY MOUTH TWICE DAILY NEEDED FOR BREAKTHROUGH PAIN 60 Tablet 4 02/12/20 24 Discontinued documented as of this encounter (statuses as of 02/12/2024) Active Problems Problem Noted Date Diagnosed Date Prediabetes 08/25/2022 DAVIDE (generalized anxiety disorder) 06/26/2020 Panic disorder 06/26/2020 Chronic insomnia 06/26/2020 ADHD (attention deficit hype ractivity disorder), combined type 06/26/2020 Chronic constipation 06/26/2020 Migraine variant 06/26/2020 Tobacco abuse 06/26/2020 documented as of this encounter (statuses as of 02/12/2024) Immunizations Name Administration Dates Next Due PPD [...] encounter Miscellaneous Notes * Telephone Encounter - Apolinar Martin MD - 02/12/2024 4:12 PM EDTSigned Prescriptions: Disp Refills Baclofen 10 MG Oral Tablet (Lioresal) 60 Tab*0 Sig: TAKE 1 TABLET BY MOUTH TWICE DAILY NEEDED FOR BREAKTHROUGH PAIN Authorizing Provider: APOLINAR MARTIN * Telephone Encounter - Karlee Mckeon [facility] - 02/12/2024 4:01 PM EDT Pending Prescriptions: Disp Refills Baclofen 10 MG Oral Tablet 60 Tab*0 Sig: TAKE 1 TABLET BY MOUTH TWICE DAILY NEEDED FOR BREAKTHROUGH PAIN * Telephone Encounter - Karlee Mckeon RPh - 02/12/2024 4:01 PM EDT [facility] is currently not authorized to approve refills for the pended medication(s) per refill protocol. Please approve if appropriate. Thank you, Karlee Mckeon, PharmD, COLE Clinical Pharmacist [facility] ([facility]) 02/12/24 4:01 PM [phone] documented in this encounter Plan of Treatment Upcoming Encounters Date Type Department Care Team (Late st Contact Info) Description 04/02/2024 2:00 PM EDT Office Visit General Internal Medicine [facility] [address] [facility] [place] [address] Apolinar Martin MD [address] [place] [address] Scheduled Procedures Name Priority Associated Diagnoses Date/Ti [...] 11/22/2023, 03/0 01/2023, 01/29/2021, Additional history exists DTaP,Tdap,and Td [...] Not on filedocumented as of this encounter Visit Diagnoses Diagnosis Flank pain Abdominal pain, unspecified site documented in this encounter Care Teams Representative Government Relations Relationship Specialty Start Date End Date Apolinar Martin MD [address] [place] [address] PCP - General Internal Medicine 06/26/20 documented as of this encounter
--- OUTSIDE RECORDS SUMMARY | 2024-02-22 05:46 | External Medical Summary | Summary of Care ---
Author Name Unknown Organization [facility] Address [address] [place] [address] Phone [phone] Care Team Providers Care Firer Locomotive Crane Name Role Phone Apolinar Rice MD Primary Care Provider + Reason for Visit * Reason Onset Date Comments Precert Approved 02/16/2024 Lisdexamfetamin e Dimesylate 40MG capsules Encounter Details Date Type Department Care Team (Late st Contact Info) Description 02/16/2024 Telephone Tariq Nieves [address] [place] [address] Nito Jiang CRNP [address] [facility] [place] [address] Precert Approved (Lisdexamfetamine Dimesyl... Allergies Active Allergy Reactions Criticality Noted Date Comments Ketorolac High 01/07/2022 Other Reaction(s): Hives documented as of this encounter (statuses as of 02/21/2024) Medications Medication Sig Dispensed Refills Start Date [...] as of this encounter (statuses as of 02/21/2024) Active Problems Problem Noted Date Diagnosed Date Prediabetes 08/25/2022 DAVIDE (generalized anxiety disorder) 06/26/2020 Panic disorder 06/26/2020 Chronic insomnia 06/26/2020 ADHD (attention deficit hype ractivity disorder), combined type 06/26/2020 Chronic constipation 06/26/2020 Migraine variant 06/26/2020 Tobacco abuse 06/26/2020 documented as of this encounter (statuses as of 02/21/2024) Immunizations Name Administration Dates Next Due PPD [...] Castelan OSA - 02/20/2024 2:12 PM EDT [facility] Authorization Submission Submission Information: Medication: Lisdexamfetamine Dimesylate 40MG capsules Portal used: [facility] Insurance: [employer] Authorization #/Portillo: [id number] Lizeth Castelan Medication Knife Machine Operator [facility] 02/20/24,2:12 PM * Telephone Encounter - Kenzie [...] PM EDT [facility] [address] [facility] [address] Apolinar Rice MD 200 [place] [address] Scheduled Procedures Name Priority Associated Diagnoses Date/Ti [...] 03/0 01/2023, 01/29/2021 Lipid Panel 11/21/2028 11/22/2023, 030 01/2023, 01/29/2021, Additional history exists DTap/Tdap Vaccines [...] filedocumented as of this encounter Care Teams Firer Locomotive Crane Relationship Specialty Start Date End Date Apolinar Rice MD [address] [place] [address] PCP - General Internal Medicine 06/26/20 documented as of this encounter
--- OUTSIDE RECORDS SUMMARY | 2024-02-22 05:46 | External Medical Summary | Summary of Care ---
Author Name Unknown Organization [facility] Address [address] [facility] [address] Phone [phone] Care Team Providers Care Orthopedic Physical Therapist Name Role Phone Apolinar Rice MD Primary Care Provider + Reason for Visit * Reason Comments Medication Management * - Authorized Specialty Diagnoses / Procedures Referred By Miya gibson Referred To Contact Referral ID Status Reason Start Date Expiration Date V isits Requested Visits Authorized [id number] Authorized 10/18/2023 10/16/2024 [id number] Encounter Details Date Type Department Care Team (Latest Contact Info) Description 01/26/2024 3:00 PM EDT [facility] [address] [place] [address] Nito Jiang CRNP [address] [place] [address] ADHD (attention deficit hyperactivity disorder), inattentive type*; Major depressive disorder, recurrent episode, moderate (HCC); DAVIDE (generalized anxiety disorder) Allergies Active Allergy Reactions Criticality Noted Date Comments Ketorolac High 01/07/2022 Other Reaction(s): Hives documented as of this encounter (statuses as of 01/26/2024) Medications Medication Sig Dispensed Refills Start Date [...] for cold sores. 12 Tablet 12/20/2023 Active predniSONE 20 MG Oral Tablet (Deltasone)Indica tions:Flank pain Take 3 tabs for 3 days, 2 tabs for 3 days, 1 tab for 3 days, 1/2 tab for 3 days 20 Tablet 12/22/2023 Active Polyethylene Glycol 3350 17 GM/SCOOP Oral [...] in the morning. 30 Capsule 01/26/2024 Active Amphetamine-Dextr oamphet ER 20 MG Oral Capsule Extended Release 24 Hour (Adderall XR) Take 1 Capsule by mouth in the morning. 30 Capsule 12/26/2023 Discontinue d(Medicatio n List Clean Up) documented as of this encounter (statuses as of 01/26/2024) Active Problems Problem Noted Date Diagnosed Date Prediabetes 08/25/2022 DAVIDE (generalized anxiety disorder) 06/26/2020 Panic disorder 06/26/2020 Chronic insomnia 06/26/2020 ADHD (attention deficit hype ractivity disorder), combined type 06/26/2020 Chronic constipation 06/26/2020 Migraine variant 06/26/2020 Tobacco abuse 06/26/2020 documented as of this encounter (statuses as of 01/26/2024) Immunizations Name Administration Dates Next Due PPD [...] on file documented as of this encounter Progress Notes * Nito Jiang CRNP - 01/26/2024 3:01 PM EDT OUTPATIENT BEHAVIORAL HEALTH RETURN VISIT NOTE Psychiatry, [facility] [address] [facility] [place] [address] 01/26/2024 Mya Castro Patient location: HOME. I was not in a hospital or clinic location. Pt unable to connect to video. After connecting through telephone, patient was verified with two unique identifiers. Patient (or authorized legal loan representative) was then informed that this was a Telemedicine visit and being conducted confidentially over secure lines. Methods to assure confidentiality were taken. Patient acknowledged consent and understanding of privacy and security of the Telemedicine visit. The patient agreedto participate. Clinical Tools - DAVIDE-7 | PHQ-9 | AIMS | Sergei Milton Safety Plan :[id number]} Risk Assessment: Completed and No acute safety concerns, denies passive/active suicidal ideation Interval History: Mya is a 49 year old female presenting today for a follow- up appointment. Pt arrived 15 minutes late due to connectivity issues. Pt reports since last appt she has "been ok,a little bit depressed, but I'm having a lot of dental issues." Had teeth removed, partial denturesinstalled, "trying to get myself healed." Daughter has been struggling with illness. Her father hasbeen in and out of the hospital with cardiac issues, COPD in [place]. She is going to be a grandmother in February. Feeling more "uneasy and anxious" since her Adderall XR has been out of stock the last couple months at local pharmacy. She denies other questions or concerns regarding current med regimen. Denies any recent concerns regarding sleep or appetite. Medication Side-Effects: denies Patient's last PHQ-9 score (Adult) - 1 and Patient's last DAVIDE-7 score - Total:10 Substance Abuse History: denies Recent labs/imaging: Relevant labs reviewed ROS Exam: Negative except as described above Relevant Changes in Psychiatric, Medical, Family, or Social History: As described above Mental Status Evaluation: Appearance: age-appropriate and casually dressed Muscle strength/tone and motor behavior: normal muscle strength and tone Gait and Station: no abnormalities noted and not tested Personal Presentation: open and friendly, candid and cooperative. Speech: normal, rate, tone and volume Mood: anxious Affect: type - euthymic; range - full range; lability - no Associations: intact Thought Process: goal directed Abstract Reasoning: intact Thought Content: denies suicidal ideations, homicidal ideations, auditory hallucinations, visual hallucinations, delusions, impulsivity to act out or preoccupation with violence Orientation: alert and oriented to person, place, time and situation Recent and remote memory as evidenced by recall of recent circumstances and remote life events: intact Language as evidenced by ability to repeat phrase and name object: intact Fund of knowledge as evidenced by vocabulary and current/historical events: intact Attention span/concentration as evidenced by: ability to sustain attention to examiner - intact andfollowing conversation - intact Insight: fair Judgment: fair Assessment/Formulation: Mya is a 48 year old female who presents with symptoms of anxiety, depression. Was living in [place] and moved to [place]. 3 children. 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 Mother passed 8 years ago which has been difficult to cope with. No inpatient, SA, denies substance abuse history. Diagnoses: ICD-10-CM 1. ADHD (attention deficit hyperactivity disorder), inattentive type F90.0 2. Major depressive disorder, recurrent episode, moderate (HCC) F33.1 3. DAVIDE (generalized anxiety disorder) F41.1 Plan: Education provided regarding diagnoses and potential treatment options, both pharmacologic and non-pharmacologic. Regarding medications, refill Vyvanse 40mg daily (therapeutic alternative to Adderall XR 20mg daily) Medications by Pharm Class (Includes Only ADHD/Anti-Narcolepsy/Anti-Obesity/Anorexiants, Antidepressants, Antianxiety Agents, Antipsychotics/Antimanic Agents, Anticonvulsant, Hypnotics/Sedatives/Sleep Disorder Agents, Beta Blockers, Antihypertensive) Medication Sig Lisdexamfetamine Dimesylate 40 MG Oral Capsule (Vyvanse) Take 1 Capsule by mouth in the morning. QUEtiapine Fumarate 300 MG Oral Tablet (SEROquel) Take 1 Tablet by mouth at bedtime. hydrOXYzine HCl 25 MG Oral Tablet TAKE 1 TABLET BY MOUTH EVERY 6 HOURS NEEDED FOR ANXIETY Continue to encourage outpatient therapy Pt counseled on elevated A1C, manager intermediate risks/benefits of continued Seroquel use with regards to metabolic dysregulation, TD. She has several times previously stated that the benefits to chronic insomnia outweigh the risks for her Encourage collection of labs to monitor Seroquel treatment PDMP queried, no concerns Return in 3 months Information about current meds reviewed/provided /offered. Provider reviewed risks/benefits/side effects and potential complications. Recommended to not change meds/dosage without medical advise. Treatment options and recommendations/interventions reviewed. Patient and/or caregiver verbalize understanding and agrees to plan with explanation of risks/benefits, aware of how to contact clinic with questions. Time Spent on Visit total: 15 minutes - including preparing to see the patient, reviewing history, performing evaluation, counseling/educating patient, ordering medications/tests, documenting clinical information. Nito Jiang, MSN, E LEARNING SPECIALIST, PMHNP- Nurse Practitioner - Outpatient Psychiatry [facility] [place] 01/26/2024 Crisis Planning: Mya Castro has been provided with Psychiatry emergency telephone numbers, including crisis number, text suicide hotline and suicide hotline. The crisis plan was reviewed and updated if necessary based on the information above. Side effects of the medication were explained, and the patient understands the risks and benefits of using the medication.Patient cautioned not to drive, operate heavy machinery, or participate in other tasks requiring full cognitive alertness until they know how new medications will affect them. Pt encouraged to keep all medications out of the reachof children. Psychoeducation was provided. Discussed risks, expected benefits, and potential adverse effects from these medications. The benefits outweigh the risks.The patient participated in the development of the treatment plan, verbalized understanding, voices no concerns and is agreeable to the treatment plan. Risk Assessment: Risk assessment was performed for Mya Castro. This is a patient being treated for chronic mental health conditions as characterized above; at the time of this visit, there was no indication that this patient was either a risk to self, others, or gravely disabled by symptoms of amental illness. At the time of this evaluation, there were enough protective factors in place and it was deemed safe to continue with treatment on a outpatient basis with return to clinic in the timeframe described above. Health Maintenance: Mya Castro was encouraged to keep up to date on regular health maintenance per her primary care provider. Encouraged to keep active in productive hobbies and exercise. This helps manage emotions, improve sleep, wellbeing and overall health. Pt was cautioned to not drink alcohol or use illicit drugs as these can make mood symptoms worse by blocking the effects of prescribed medications. Avoid tobacco, which contains nicotine. Limit caffeine use. Caffeine and Nicotine are stimulants that can cause difficulty with sleep. Lack of sleep can then worsen anxiety and depression. documented in this encounter Plan of Treatment Upcoming Encounters Date Type Department Care Team (Late st Contact Info) Description 04/02/2024 2:00 PM EDT Office Visit General Internal Medicine [address] [place] [address] [place] [address] Apolinar Rice MD [address] [place] [address] Scheduled Procedures Name Priority Associated Diagnoses Date/Ti [...] as of this encounter Visit Diagnoses Diagnosis ADHD (attention deficit hyperactivity disorder), inattentive type- Primary Attention deficit disorder without mention of hyperactivity Major depressive disorder, recurrent episode, moderate (HCC) Major depressive disorder, recurrent episode, moderate DAVIDE (generalized anxiety disorder) Generalized anxiety disorder documented in this encounter Care Teams Orthopedic Physical Therapist Relationship Specialty Start Date End Date Apolinar Rice MD [address] [place] [address] PCP - General Internal Medicine 06/26/20 documented as of this encounter
--- OUTSIDE RECORDS SUMMARY | 2024-02-22 05:46 | External Medical Summary | Summary of Care ---
Author Name Unknown Organization [facility] Address [address] [facility] [address] Phone [phone] Care Team Providers Care Certified Lactation Educator Name Role Phone Apolinar Rice MD Primary Care Provider + Reason for Visit * Reason Onset Date Comments Medication Pre-auth 02/15/2024 Encounter Details Date Type Department Care Team (Late st Contact Info) Description 02/15/2024 Telephone Tariq Nieves [address] [place] [address] Nito Jiang CRNP [address] [place] [address] Medication Pre-auth Allergies Active Allergy Reactions Criticality Noted Date Comments Ketorolac High 01/07/2022 Other Reaction(s): Hives documented as of this encounter (statuses as of 02/15/2024) Medications Medication Sig Dispensed Refills Start Date [...] as of this encounter (statuses as of 02/15/2024) Active Problems Problem Noted Date Diagnosed Date Prediabetes 08/25/2022 DAVIDE (generalized anxiety disorder) 06/26/2020 Panic disorder 06/26/2020 Chronic insomnia 06/26/2020 ADHD (attention deficit hype ractivity disorder), combined type 06/26/2020 Chronic constipation 06/26/2020 Migraine variant 06/26/2020 Tobacco abuse 06/26/2020 documented as of this encounter (statuses as of 02/15/2024) Immunizations Name Administration Dates Next Due PPD [...] encounter Miscellaneous Notes * Telephone Encounter - Goran Saravia MD - 02/15/2024 7:26 PM EDT Attempted to contact patient by phone, no answer, left voicemail informing her that prior authorization team will be informed of this lapse. She should contact her regular provider next week if she does not hear any updates. * Telephone Encounter - Kelly Sorto OSA - 02/15/2024 4:06 PM EDT Patient calling in again and is very frustrated. She said she has no medication and has been off for this medication going on a month and she is starting to feel terrible. She would really like to speak with someone and see what is going on and why this had not been submitted yet. Could someone please call this patient and talk to her about it. * Telephone Encounter - Amaris Payton, video news editor - 02/15/2024 3:57 PM EDT Pt is calling on status of her pa for vyvamanuele I can not find any one started Transferred pt to office Thank you for your assistance Amaris Payton Patent Examiner [employer] [facility] 02/15/2024,3:57 PM documented in this encounter Plan of Treatment Upcoming Encounters Date Type Department Care Team (Late st Contact Info) Description 04/02/2024 2:00 PM EDT Office Visit General Internal Medicine [place] [address] [facility] [place] [address] Apolinar Rice MD [address] [facility] [place] [address] Scheduled Procedures Name Priority Associated Diagnoses Date/Ti [...] filedocumented as of this encounter Care Teams Certified Lactation Educator Relationship Specialty Start Date End Date Apolinar Rice MD [address] [facility] [place] [address] PCP - General Internal Medicine 06/26/20 documented as of this encounter
--- OUTSIDE RECORDS SUMMARY | 2024-02-22 05:47 | External Medical Summary | Summary of Care ---
Author Name Unknown Organization [facility] Address [address] [place] [address] Phone [phone] Care Team Providers Care Makeup Artist Name Role Phone Apolinar Rice MD Primary Care Provider + Reason for Referral * Evaluate & Treat - Unlimited Visits (Within 10 days (routine)) - Pending Review Specialty Diagnoses / Procedures Referred By Miya gibson Referred To Contact Gastroenterology Diagnoses Chronic constipation Apolinar Rice MD [address] [place] [address] Referral ID Status Reason Start Date Expiration Date Visits Requested Visits Authorized [id number] Pending Review Specialty Services Required 12/22/[phone] Question Answer Referral Priority Within 10 days (routine) [facility] this appointment be scheduled? [facility] For what condition is the patient being referred? All Gastro Conditions Reason for Visit * Reason Onset Date Comments abnormal imaging study 12/20/2023 Abdominal x ray Encounter Details Date Type Department Care Team (Late st Contact Info) Description 12/20/2023 Telephone General Internal Medicine [facility] [employer] [address] [place] [address] Apolinar Rice MD [address] [facility] [place] [id number] abnormal imaging study (Abdominal x ray) Allergies Active Allergy Reactions Criticality Noted Date Comments Ketorolac High 01/07/2022 Other Reaction(s): Hives documented as of this encounter (statuses as of 12/25/2023) Medications Medication Sig Dispensed Refills Start Date End Date Status /Folic Acid Oral Tablet Take 1 Tab by mouth daily. Active Acetaminophen 500 MG Oral Tablet (Tylenol)Indications :Chest pain, unspecified type Take 2 Tablets by mouth every 8 hours as needed for Pain, Severe. 100 Tablet 06/30/2021 Active Polyethylene Glycol 3350 17 GM/SCOOP Oral Powder (MiraLax)Indications :Constipation, unspecified constipation type Take 17 g by mouth as needed for Constipation. Dissolve one heaping tablespoon in 8 ounces of water or juice. 510 g 3 08/24/2022 Active Famotidine 20 MG Oral Tablet (Pepcid)Indications: Greater trochanteric pain syndrome of right lower extremity,Pain of right thigh,Chronic pain of right knee,Lumbar degenerative disc disease Take 1 Tablet by mouth in the morning and 1 Tablet before bedtime. 60 Tablet 5 12/23/2022 Active hydrOXYzine HCl 25 MG Oral TabletIndications:GA D (generalized anxiety disorder) TAKE 1 TABLET BY MOUTH EVERY 6 HOURS NEEDED FOR ANXIETY 40 Tablet 2 05/09/2023 Active SUMAtriptan Succinate 50 MG Oral Tablet (Imitrex)Indications :Chronic insomnia Take 1 tablets at onset of migraine and one tablet every 2 hours as needed, not more than 2 tablets in 24 hours 6 Tablet 5 05/15/2023 Active QUEtiapine Fumarate 300 MG Oral Tablet (SEROquel) Take 1 Tablet by mouth at bedtime. 90 Tablet 1 07/24/2023 Active Meloxicam 7.5 MG Oral Tablet (Mobic)Indications:A typical chest pain,Cervical radiculopathy,Thorac ic radiculopathy,Chest pain, unspecified type TAKE 2 TABLETS BY MOUTH IN THE MORNING FOR PAIN 60 Tablet 2 10/03/2023 Active Amphetamine-Dextroam phet ER 20 MG Oral Capsule Extended Release 24 Hour (Adderall XR) Take 1 Capsule by mouth in the morning. 30 Capsule 10/11/2023 Active Linzess 290 MCG Oral Capsule (linaCLOtide)Indicat ions:Chronic constipation Take 1 Capsule by mouth daily before breakfast. 90 Capsule 11/29/2023 Active Omeprazole 20 MG Oral Capsule Delayed Release (PriLOSEC)Indication s:Acute gastritis without hemorrhage, unspecified gastritis type TAKE 1 CAPSULE BY MOUTH ONCE DAILY IN THE MORNING 1 HOUR BEFORE THE FIRST MEAL OF THE DAY 90 Capsule 11/29/2023 Active valACYclovir HCl 1 GM Oral Tablet (Valtrex)Indications :Cold sore Take 2 Tablets by mouth in the morning and 2 Tablets before bedtime. For 1 day for cold sores. 12 Tablet 12/20/2023 Active documented as of this encounter (statuses as of 12/25/2023) Active Problems Problem Noted Date Diagnosed Date Prediabetes 08/25/2022 DAVIDE (generalized anxiety disorder) 06/26/2020 Panic disorder 06/26/2020 Chronic insomnia 06/26/2020 ADHD (attention deficit hype ractivity disorder), combined type 06/26/2020 Chronic constipation 06/26/2020 Migraine variant 06/26/2020 Tobacco abuse 06/26/2020 documented as of this encounter (statuses as of 12/25/2023) Immunizations Name Administration Dates Next Due PPD [...] encounter Miscellaneous Notes * Telephone Encounter - Quincy Sanches OSA - 12/25/2023 9:00 AM EDT LMOM 12/25/23 to schedule GI * Telephone Encounter - Margarita Foster MED ASSIST - 12/22/2023 4:48 PM EDT Spoke with patient. She states that she purchased OTC Dulcolax and the cramping is "unreal" and its not gentle. She states that Mirilax was prescribed for her before and it was covered. She would like to know if there is something you are able to prescribe that will work the same or "gracie" the same as the Linzess until she can be seen by GI? * Telephone Encounter - Apolinar Rice MD - 12/22/2023 4:12 PM EDT Let her know insurance denied Linzess. She should gi for constipation, other medicine for her constipation Miralax is otc I feel pain more likely from back, please see result note on lower back film from today: No fx, mild l2/l3 degenerative disc disease, cont prednisone, baclofen, if pain worsens or persistsnext week let us know, * Telephone Encounter - Violet Allen LPN - 12/22/2023 3:57 PM EDT Images from the original note were not included. Patient is calling again because she is upset that she has not had her Linzess She was told today at her appt that the prior auth was not completed yet Please see TE 12/12: PA submitted via [facility] [place]: [id number] Patient would like someone to look into this for her She would like a call back I then found this scan from 12/14/23 that med has been denied: Media Information Please advise on what patient should do now that med has been denied * Telephone Encounter - Janie Gray LPN - 12/22/2023 3:26 PM EDT Patient calling in reviewed message from Dr. Rice with patient: She does not have Miralx and is asking that PCP send in a large bottle to her Pharmacy. Selected pharmacy. She has not been able to miner pick her Linzess as it needs PA done. She knows that she is backed up due to this issue and would like office to complete MILAGROS as it's been a couple weeks without her medication. She is asking if the moderate stool burden is causing the right flank pain, she stated that she knows wha constipation feels like and this is not the normal feel. She stated that there is a spinal x-ray in her chart with something going on at L2-L3 and is wondering if the pain is from that. Please advise * Telephone Encounter - Margarita Foster MED ASSIST - 12/22/2023 2:33 PM EDT Left message for the patient to call the office. Upon return call please transfer to a dedicated telephone nurse. ----- Message from Apolinar Rice MD sent at 12/22/2023 1:05 PM EDT ----- Moderate stool burden so still fair amount of stool, cont miralax daily, has Linzess prior auth gone through? * Telephone Encounter - Bibiana Lima LPN - 12/20/2023 1:22 PM EDT Emergency Department Follow Up: When was patient seen: 12/17 Which ED: [facility] What were they seen for: flank pain What testing did they have done: lab work and ct scan What did ED think was wrong (dx): unknown Any new medications prescribed: no new meds How is patient feeling today: pain is worsen Patient concerns today: scheduled appt with Dr Rice on 12/21 at 10:20 documented in this encounter Plan of Treatment Upcoming Encounters Date Type Department Care Team (Late st Contact Info) Description 01/24/2024 12:00 PM EDT Telemedicine Tariq Nieves [address] [place] [address] Nito Jiang CRNP [address] [place] [place] [address] 04/02/2024 2:00 PM EDT Office Visit General Internal Medicine [address] [place] [address] [facility] [place] [address] Apolinar Rice MD [address] [facility] [place] [address] Scheduled Procedures Name Priority Associated Diagnoses Date/Ti me COLONOSCOPY FLEXIBLE PROXIMA L DIAGNOSTIC Recall Special screening for malignant neoplasms, colon Scheduled Referrals Name Type Priority Associated Diagnoses Orde r Schedule ADULT GASTROENTEROLOGY REFERRAL OP Referral Within 10 days (routine) Chronic constipation Ordered: 12/22/2023 Health Maintenance Due Date Last Done Comments Hepatitis C Screening 01/10/1992 Hepatitis B Vaccine (1 of 3 - 19+ 3-dose series) 1993 Pap Smear 1995 Cervical Cancer Screening 01/10/2004 HPV/Co-Test 01/10/2004 Cologuard 2019 Colonoscopy 2019 Colorectal Cancer Screening 2019 Fecal Occult Blood Test 2019 Sigmoidoscopy 2019 Mammogram 03/18/2020 03/18/2019 COVID-19 Vaccine ( season) 2023 04/01/2022 Depression Screening 08/25/2023 08/24/2022 Influenza Vaccine (FLU shot) (#1) 2024 08/24/2022, [...] as of this encounter Visit Diagnoses Diagnosis Chronic constipation- Primary Unspecified constipation documented in this encounter Care Teams Makeup Artist Relationship Specialty Start Date End Date Apolinar Rice MD [address] [place] [address] PCP - General Internal Medicine 06/26/20 documented as of this encounter
--- OUTSIDE RECORDS SUMMARY | 2024-02-22 05:47 | External Medical Summary | Summary of Care ---
Author Name Unknown Organization [facility] Address [address] [place] [address] Phone [phone] Care Team Providers Care Brothel Keeper Name Role Phone Apolinar Rice MD Primary Care Provider + Reason for Referral * Evaluate & Treat - Unlimited Visits (Within 10 days (routine)) - Pending Review Specialty Diagnoses / Procedures Referred By Miya gibson Referred To Contact Gastroenterology Diagnoses Chronic constipation Apolinar Rice MD [address] [place] [address] Referral ID Status Reason Start Date Expiration Date Visits Requested Visits Authorized [id number] Pending Review Specialty Services Required 12/22/2023 999 [...] [employer] [address] [place] [address] Apolinar Rice MD 200 [facility] [place] [address] abnormal imaging study (Abdominal x ray) Allergies Active Allergy Reactions Criticality Noted Date Comments Ketorolac High 01/07/2022 Other Reaction(s): Hives documented as of this encounter (statuses as of 12/26/2023) Medications Medication Sig Dispensed Refills Start Date End Date Status /Folic Acid Oral Tablet Take 1 Tab by mouth daily. Active Acetaminophen 500 MG Oral Tablet (Tylenol)Indicatio ns:Chest pain, unspecified type Take 2 Tablets by mouth every 8 hours as needed for Pain, Severe. 100 Tablet 06/30/2021 Active Famotidine 20 MG Oral Tablet (Pepcid)Indication s:Greater trochanteric pain syndrome of right lower extremity,Pain of right thigh,Chronic pain of right knee,Lumbar degenerative disc disease Take 1 Tablet by mouth in the morning and 1 Tablet before bedtime. 60 Tablet 5 12/23/2022 Active hydrOXYzine HCl 25 MG Oral TabletIndications: DAVIDE (generalized anxiety disorder) TAKE 1 TABLET BY MOUTH EVERY 6 HOURS NEEDED FOR ANXIETY 40 Tablet 2 05/09/2023 Active SUMAtriptan Succinate 50 MG Oral Tablet (Imitrex)Indicatio ns:Chronic insomnia Take 1 tablets at onset of migraine and one tablet every 2 hours as needed, not more than 2 tablets in 24 hours 6 Tablet 5 05/15/2023 Active QUEtiapine Fumarate 300 MG Oral Tablet (SEROquel) Take 1 Tablet by mouth at bedtime. 90 Tablet 1 07/24/2023 Active Meloxicam 7.5 MG Oral Tablet (Mobic)Indications :Atypical chest pain,Cervical radiculopathy,Thor acic radiculopathy,Ches t pain, unspecified type TAKE 2 TABLETS BY MOUTH IN THE MORNING FOR PAIN 60 Tablet 2 10/03/2023 Active Linzess 290 MCG Oral Capsule (linaCLOtide)Indic ations:Chronic constipation Take 1 Capsule by mouth daily before breakfast. 90 Capsule 11/29/2023 Active Omeprazole 20 MG Oral Capsule Delayed Release (PriLOSEC)Indicati ons:Acute gastritis without hemorrhage, unspecified gastritis type TAKE 1 CAPSULE BY MOUTH ONCE DAILY IN THE MORNING 1 HOUR BEFORE THE FIRST MEAL OF THE DAY 90 Capsule 11/29/2023 Active valACYclovir HCl 1 GM Oral Tablet (Valtrex)Indicatio ns:Cold sore Take 2 Tablets by mouth in the morning and 2 Tablets before bedtime. For 1 day for cold sores. 12 Tablet 12/20/2023 Active Polyethylene Glycol 3350 17 GM/SCOOP Oral Powder (MiraLax)Indicatio ns:Constipation, unspecified constipation type Take 17 g by mouth daily as needed for Constipation. Dissolve one heaping tablespoon in 8 ounces of water or juice. 510 g 3 12/26/2023 Active Polyethylene Glycol 3350 17 GM/SCOOP Oral Powder (MiraLax)Indicatio ns:Constipation, unspecified constipation type Take 17 g by mouth as needed for Constipation. Dissolve one heaping tablespoon in 8 ounces of water or juice. 510 g 3 08/24/2022 4 Discontinue d(Refill) Amphetamine-Dextro amphet ER 20 MG Oral Capsule Extended Release 24 Hour (Adderall XR) Take 1 Capsule by mouth in the morning. 30 Capsule 10/11/2023 4 Discontinue d(Refill) documented as of this encounter (statuses as of 12/26/2023) Active Problems Problem Noted Date Diagnosed Date Prediabetes 08/25/2022 DAVIDE (generalized anxiety disorder) 06/26/2020 Panic disorder 06/26/2020 Chronic insomnia 06/26/2020 ADHD (attention deficit hype ractivity disorder), combined type 06/26/2020 Chronic constipation 06/26/2020 Migraine variant 06/26/2020 Tobacco abuse 06/26/2020 documented as of this encounter (statuses as of 12/26/2023) Immunizations Name Administration Dates Next Due PPD [...] as of this encounter Miscellaneous Notes * Addendum Note - Apolinar Rice MD - 12/26/2023 2:09 PM EDTAddended by: APOLINAR RICE on: 12/26/2023 02:09 PM Modules accepted: Orders * Telephone Encounter - Apolinar Rice MD - 12/26/2023 2:08 PM EDT Script for miralax sent. If she wants to try for me to appeal the Linzess, she needs dedicated visit about constipation (pls schedule) as they will need a lot info for this from an ov * Telephone Encounter - Quincy Sanches OSA - 12/26/2023 8:55 AM EDT LMOM 12/26/23 2 contact attempts made - unable to reach - Letter Sent * Telephone Encounter - Quincy Sanches OSA [...] Please see TE 12/12: PA submitted via CMM Portillo: [id number] Patient would like someone to look into [...] pharmacy. She has not been able to pickling grader her Linzess as it needs PA done. [...] Please advise * Telephone Encounter - Margarita Foster, MED ASSIST - 12/22/2023 2:33 PM EDT [...] When was patient seen: 12/17 Which ED: [facility] What were they seen for: flank pain [...] Info) Description 01/24/2024 12:00 PM EDT Telemedicine Psychiatry, [facility] [address] [place] [address] Nito Jiang CRNP [address] [place] [address] 04/02/2024 2:00 PM EDT Office Visit General Internal Medicine [facility] [place] 200 [facility] [place] [address] Apolinar Rice MD 200 [facility] [place] [address] Scheduled Procedures Name Priority Associated Diagnoses Date/Ti [...] Mammogram 03/18/2020 03/18/2019 COVID-19 Vaccine (2 - season) 2023 04/01/2022 Depression Screening 08/25/2023 08/24/2022 [...] Diagnoses Diagnosis Chronic constipation- Primary Unspecified constipation Constipation, unspecified constipation type documented in this encounter Care Teams Brothel Keeper Relationship Specialty Start Date End Date Apolinar Rice MD 200 [facility] [place] [address] PCP - General Internal Medicine 06/26/20 documented as of this encounter
--- OUTSIDE RECORDS SUMMARY | 2024-02-22 05:47 | External Medical Summary | Summary of Care ---
Author Name Unknown Organization [facility] Address [address] [place] [address] Phone [phone] Care Team Providers Care Car Ferrier Name Role Phone Apolinar Martin MD Primary Care Provider + Reason for Visit * Reason Comments eRx-Medication Refill Encounter Details Date Type Department Care Team (Late st Contact Info) Description 01/15/2024 Refill General Internal Medicine [facility] 200 [place] [address] Apolinar Martin MD 200 [place] [address] Flank pain Allergies Active Allergy Reactions Criticality Noted Date Comments Ketorolac High 01/07/2022 Other Reaction(s): Hives documented as of this encounter (statuses as of 01/16/2024) Medications Medication Sig Dispensed Refills Start Date [...] 24 hours 6 Tablet 5 3 Active QUEtiapine Fumarate 300 MG Oral Tablet (SEROquel) Take 1 Tablet by mouth at bedtime. 90 Tablet 1 4 Active Meloxicam 7.5 MG Oral Tablet (Mobic)Indication [...] for cold sores. 12 Tablet 4 Active predniSONE 20 MG Oral Tablet (Deltasone)Indica tions:Flank pain Take 3 tabs for 3 days, 2 tabs for 3 days, 1 tab for 3 days, 1/2 tab for 3 days 20 Tablet 4 Active Amphetamine-Dextr oamphet ER 20 MG Oral Capsule Extended Release 24 Hour (Adderall XR) Take 1 Capsule by mouth in the morning. 30 Capsule 4 Active Polyethylene Glycol 3350 17 GM/SCOOP [...] twice daily 60 Tablet 5 4 Active Baclofen 10 MG Oral Tablet (Lioresal)Indicat ions:Flank pain TAKE 1 TABLET BY MOUTH TWICE DAILY NEEDED FOR BREAKTHROUGH PAIN 60 Tablet 4 Active Baclofen 10 MG Oral Tablet (Lioresal)Indicat ions:Flank pain Take 1 Tablet by mouth 2 times a day as needed for Pain, Breakthrough. 60 Tablet 4 01/16/20 24 Discontinued documented as of this encounter (statuses as of 01/16/2024) Active Problems Problem Noted Date Diagnosed Date Prediabetes 08/25/2022 DAVIDE (generalized anxiety disorder) 06/26/2020 Panic disorder 06/26/2020 Chronic insomnia 06/26/2020 ADHD (attention deficit hype ractivity disorder), combined type 06/26/2020 Chronic constipation 06/26/2020 Migraine variant 06/26/2020 Tobacco abuse 06/26/2020 documented as of this encounter (statuses as of 01/16/2024) Immunizations Name Administration Dates Next Due PPD [...] Telephone Encounter - Apolinar Martin MD - 01/16/2024 12:44 PM EDT Signed Prescriptions: Disp Refills Baclofen 10 MG Oral Tablet (Lioresal) 60 Tab*0 Sig: TAKE 1 TABLET BY MOUTH TWICE DAILY NEEDED FOR BREAKTHROUGH PAIN Authorizing Provider: APOLINAR MARTIN * Telephone Encounter - Sebastian Hernandez [facility] - 01/16/2024 11:57 AM EDT Pending Prescriptions: Disp Refills Baclofen 10 MG Oral Tablet 60 Tab*0 Sig: TAKE 1 TABLET BY MOUTH TWICE DAILY NEEDED FOR BREAKTHROUGH PAIN * Telephone Encounter - Sebastian Hernandez [facility] - 01/16/2024 11:57 AM EDT Refill pharmacists currently not authorized to approve refills for this class of medication per refill protocol. Please approve if appropriate. Pending Prescriptions: Disp Refills Baclofen 10 MG Oral Tablet 60 Tab*0 Sig: TAKE 1 TABLET BY MOUTH TWICE DAILY NEEDED FOR BREAKTHROUGH PAIN 12/22/2023 (in office), 06/30/2021 (telemedicine) 04/02/2024 If no future appointments scheduled, and last appointment is greater than a year ago, please schedule patient for a follow-up appointment Last date the medication was ordered: 12/22/2023 Pharmacy: [facility] [address] [address] [address] [place] Is this request for a controlled substance? no Patient Phone Numbers Labs: Lab Results Component Value Date/Time CREAT 0.9 11/22/2023 04:11 PM CREAT 0.89 12/13/2021 12:00 AM CREAT 0.9 06/26/2020 12:04 PM POTASSIUM 4.1 11/22/2023 04:11 PM POTASSIUM 3.1 (A) 12/13/2021 12:00 AM POTASSIUM 3.8 06/26/2020 12:04 PM TSH 2.82 10/20/2021 12:31 PM TSH 3.15 06/26/2020 12:07 PM LDLCALC 81 11/22/2023 04:11 PM LDLCALC 105 06/26/2020 12:04 PM LDLDIRECT 98 01/29/2021 12:04 PM LDLDIRECT NOT APPLICABLE 06/26/2020 12:04 PM ALT 29 11/22/2023 04:11 PM ALT 29 06/26/2020 12:04 PM HGBA1C 5.8 (H) 11/22/2023 04:11 PM Thank You, Sebastian Hernandez, Pharm-D Clinical Pharmacist Telepharmacy 01/16/2024, 11:57 AM documented in this encounter Plan of Treatment Upcoming Encounters Date Type Department Care Team (Late st Contact Info) Description 01/24/2024 12:00 PM EDT Telemedicine Psychiatry, Tariq Hernandez [address] [place] [address] Nito Jiang CRNP [address] [place] [address] 04/02/2024 2:00 PM EDT Office Visit General Internal Medicine [facility] [address] [place] [address] Apolinar Martin MD 200 [place] [address] Scheduled Procedures Name Priority Associated Diagnoses Date/Ti [...] 05/10/2021, Additional history exists HbA1c 11/21/2024 11/22/2023, 01/2023, 01/29/2021 Lipid Panel 11/21/2028 11/22/2023, 01/2023, [...] site documented in this encounter Care Teams Car Ferrier Relationship Specialty Start Date End Date Apolinar Martin MD 200 [place] [address] PCP - General Internal Medicine 06/26/20 documented as of this encounter
--- OUTSIDE RECORDS SUMMARY | 2024-02-22 05:47 | External Medical Summary | Summary of Care ---
Author Name Unknown Organization [facility] Address [address] [place] [address] Phone [phone] Care Team Providers Care Grease Renderer Name Role Phone Apolinar Rice MD Primary Care Provider + Reason for Visit * Reason Comments eRx-Medication Refill Encounter Details Date Type Department Care Team (Late st Contact Info) Description 12/24/2023 Refill General Internal Medicine [facility] 200 [place] [address] Apolinar Rice MD 200 [place] [address] Cold sore Allergies Active Allergy Reactions Criticality Noted Date [...] 12/20/2023 Active predniSONE 20 MG Oral Tablet (Deltasone)Indicatio ns:Flank pain Take 3 tabs for 3 days, 2 tabs for 3 days, 1 tab for 3 days, 1/2 tab for 3 days 20 Tablet 12/22/2023 Active Baclofen 10 MG Oral Tablet (Lioresal)Indication s:Flank pain Take 1 Tablet by mouth 2 times a day as needed for Pain, Breakthrough. 60 Tablet 12/22/2023 Active documented as of this encounter (statuses [...] encounter Miscellaneous Notes * Telephone Encounter - Lucy Goldberg [facility] - 12/26/2023 10:47 AM EDT Refused Prescriptions: Disp Refills valACYclovir HCl 1 GM Oral Tablet (Valtrex)4 Tabl*0 Sig: TAKE TWO TABLETS BY MOUTH IN THE MORNING AND TWO TABLETS BEFORE BEDTIME FOR ONE DAY FOR COLD SORESRefused By: LUCY GOLDBERGReason for Refusal: Too soon documented in this encounter Plan of Treatment Upcoming Encounters Date Type Department Care Team (Late st Contact Info) Description 01/24/2024 12:00 PM EDT Telemedicine Psychiatry, [facility] [address] [address] Nito Jiang CRNP [address] [place] [address] 04/02/2024 2:00 PM EDT Office Visit General Internal Medicine [place] 200 [facility] [place] [address] Apolinar Rice MD 200 [facility] [place] [address] Scheduled Procedures Name Priority Associated Diagnoses Date/Ti [...] as of this encounter Visit Diagnoses Diagnosis Cold sore Herpes simplex without mention of complication documented in this encounter Care Teams Grease Renderer Relationship Specialty Start Date End Date Apolinar Rice MD 200 [place] [address] PCP - General Internal Medicine 06/26/20 documented as of this encounter
--- OUTSIDE RECORDS SUMMARY | 2024-02-22 05:47 | External Medical Summary | Summary of Care ---
Author Name Unknown Organization [facility] Address [address] [place] [address] Phone [phone] Care Team Providers Care Drainage Inspector Name Role Phone Apolinar Rice MD Primary Care Provider + Reason for Referral * Evaluate & Treat - Unlimited Visits (Within 10 days (routine)) - Pending Review Specialty Diagnoses / Procedures Referred By Miya gibson Referred To Contact Gastroenterology Diagnoses Chronic constipation Apolinar Rice MD [address] [place] [address] Referral ID Status Reason Start Date Expiration Date Visits Requested Visits Authorized [id number] Pending Review Specialty Services Required 12/22/2023 999 [...] [employer] [address] [place] [address] Apolinar Rice MD 200 [facility] [place] [address] abnormal imaging study (Abdominal x ray) Allergies [...] Problem Noted Date Diagnosed Date Prediabetes 08/25/2022 DAVDIE (generalized anxiety disorder) 06/26/2020 Panic disorder 06/26/2020 [...] Encounter - Margarita Foster MED ASSIST - 12/26/2023 2:50 PM EDT Left message for the patient to call the office. Upon return call please transfer to a dedicated telephone nurse. * Addendum Note - Doberstein, Apolinar F, MD - 12/26/2023 2:09 PM EDTAddended by: [...] TE 12/12: PA submitted via M Portillo: [email or web address] Patient would like someone to look into [...] pharmacy. She has not been able to rock picker her Linzess as it needs PA done. [...] Follow Up: When was patient seen: 12/17 [facility] ED: [facility] What were they seen for: flank [...] Description 01/24/2024 12:00 PM EDT Telemedicine Psychiatry, [facility] [address] [place] [address] Nito Jiang CRNP [address] [place] [address] 04/02/2024 2:00 PM EDT Office Visit General Internal Medicine [facility] [place] 200 [facility] [place] [address] Apolinar Rice MD 200 [facility] [place] [address] Scheduled Procedures Name Priority Associated Diagnoses Date/Ti [...] type documented in this encounter Care Teams Drainage Inspector Relationship Specialty Start Date End Date Apolinar Rice MD 200 [facility] [place] [address] PCP - General Internal Medicine 06/26/20 documented as of this encounter
--- OUTSIDE RECORDS SUMMARY | 2024-02-22 05:47 | External Medical Summary | Summary of Care ---
Author Name Unknown Organization [facility] Address [address] [place] [address] Phone [phone] Care Team Providers Care Manager Center Name Role Phone Apolinar Rice MD Primary Care Provider + Reason for Referral * Evaluate & Treat - Unlimited Visits (Within 10 days (routine)) - Pending Review Specialty Diagnoses / Procedures Referred By Miya gibson Referred To Contact Gastroenterology Diagnoses Chronic constipation Apolinar Rice MD [address] [place] [address] Referral ID Status Reason Start Date Expiration Date Visits Requested Visits Authorized [id number] Pending Review Specialty Services Required 12/22/2023 999 [...] [employer] [address] [place] [address] [address] Apolinar Rice MD 200 [facility] [place] [address] abnormal imaging study (Abdominal x ray) Allergies [...] schedule GI * Telephone Encounter - Margarita Foster, MED ASSIST - 12/22/2023 4:48 PM EDT [...] TE 12/12: PA submitted via CMM Portillo: [id number] Patient would like someone to look into [...] pharmacy. She has not been able to roller picker her Linzess as it needs PA [...] gone through? * Telephone Encounter - Bibiana iLma LPN - 12/20/2023 1:22 PM EDT Emergency Department Follow Up: When was patient seen: 12/17 [facility] ED: [facility] What were they seen for: flank pain [...] Description 01/24/2024 12:00 PM EDT Telemedicine Psychiatry, [address] [place] [address] Nito Jiang CRNP [address] [place] [address] 04/02/2024 2:00 PM EDT Office Visit [facility] Internal [facility] [place] 200 [facility] [place] [address] Apolinar Rice MD 200 [facility] [place] [address] Scheduled Procedures Name Priority Associated Diagnoses Date/Ti [...] 2019 Mammogram 03/18/2020 03/18/2019 COVID-19 Vaccine ( - season) 2023 04/01/2022 Depression Screening 08/25/2023 08/24/2022 Influenza Vaccine (FLU shot) (#1) 2024 08/24/2022, 05/10/2021, 05/10/2021, Additional history exists HbA1c 11/21/2024 11/22/2023, 03/0 01/2023, 01/29/2021 Lipid Panel 11/21/2028 11/22/2023, 030 01/2023, 01/29/2021, Additional history exists DTaP,Tdap,and Td [...] constipation documented in this encounter Care Teams Manager Center Relationship Specialty Start Date End Date Apolinar Rice MD 200 [place] [address] PCP - General Internal Medicine 06/26/20 documented as of this encounter
--- OUTSIDE RECORDS SUMMARY | 2024-02-22 05:47 | External Medical Summary | Summary of Care ---
Author Name Unknown Organization [facility] Address [address] [place] [address] Phone [phone] Care Team Providers Care Customer Sales Representative Name Role Phone Apolinar Martin MD Primary Care Provider + Reason for Visit * Reason Comments eRx-Medication Refill Encounter Details Date Type Department Care Team (Late st Contact Info) Description 12/27/2023 Refill General Internal Medicine [facility] 200 [facility] [place] [address] Apolinar Martin MD 200 [facility] [place] [facility] [place] [address] Greater trochanteric pain syndrome of right lower extremity; Pain of right thigh; Chronic pain of right knee; Lumbar degenerative disc disease Allergies Active Allergy Reactions Criticality Noted Date Comments Ketorolac High 01/07/2022 Other Reaction(s): Hives documented as of this encounter (statuses as of 12/28/2023) Medications Medication Sig Dispensed Refills Start Date [...] 07/24/2023 Active Meloxicam 7.5 MG Oral Tablet (Mobic)Indication [...] 12/22/2023 Active Baclofen 10 MG Oral Tablet (Lioresal)Indicat ions:Flank pain Take 1 Tablet by mouth 2 times a day as needed for Pain, Breakthrough. 60 Tablet 12/22/2023 Active Amphetamine-Dextr oamphet ER 20 MG Oral Capsule Extended Release 24 Hour (Adderall XR) Take 1 Capsule by mouth in the morning. 30 Capsule 12/26/2023 Active Polyethylene Glycol 3350 17 GM/SCOOP [...] twice daily 60 Tablet 5 12/28/2023 Active Famotidine 20 MG Oral Tablet (Pepcid)Indicatio ns:Greater trochanteric pain syndrome of right lower extremity,Pain of right thigh,Chronic pain of right knee,Lumbar degenerative disc disease Take 1 Tablet by mouth in the morning and 1 Tablet before bedtime. 60 Tablet 5 12/23/2022 Discontinued documented as of this encounter (statuses as of 12/28/2023) Active Problems Problem Noted Date Diagnosed Date Prediabetes 08/25/2022 DAVIDE (generalized anxiety disorder) 06/26/2020 Panic disorder 06/26/2020 Chronic insomnia 06/26/2020 ADHD (attention deficit hype ractivity disorder), combined type 06/26/2020 Chronic constipation 06/26/2020 Migraine variant 06/26/2020 Tobacco abuse 06/26/2020 documented as of this encounter (statuses as of 12/28/2023) Immunizations Name Administration Dates Next Due PPD [...] encounter Miscellaneous Notes * Telephone Encounter - Jose Beckwith RPh - 12/28/2023 9:24 AM EDTSigned Prescriptions: Disp Refills Famotidine 20 MG Oral Tablet (Pepcid) 60 Tab*5 Sig: Take 1 tablet by mouth twice dailyAuthorizing Provider: APOLINAR MARTIN User: JOSE BECKWITH------ documented in this encounter Plan of Treatment Upcoming Encounters Date Type Department Care Team (Late st Contact Info) Description 01/24/2024 12:00 PM EDT Telemedicine Psychiatry, Tariq Hernandez [address] [place] [address] Nito Jiang CRNP [address] [place] [address] 04/02/2024 2:00 PM EDT Office [facility] [place] [place] 200 [facility] [place] [address] Apolinar Martin MD 200 [facility] [place] [address] Scheduled Procedures Name Priority Associated Diagnoses Date/Ti [...] as of this encounter Visit Diagnoses Diagnosis Greater trochanteric pain syndrome of right lower extremity Pain of right thigh Pain in limb Chronic pain of right knee Lumbar degenerative disc disease Degeneration of lumbar or lumbosacral intervertebral disc documented in this encounter Care Teams Customer Sales Representative Relationship Specialty Start Date End Date Apolinar Martin MD 200 [place] [address] PCP - General Internal Medicine 06/26/20 documented as of this encounter
--- OUTSIDE RECORDS SUMMARY | 2024-02-22 05:47 | External Medical Summary | Summary of Care ---
Author Name Unknown Organization [facility] Address [address] [address] Phone [phone] Care Team Providers Care Lead Worker Of Housekeeping And Laundry Name Role Phone Apolinar Rice MD Primary Care Provider + Reason for Visit * - Authorized Specialty Diagnoses / Procedures Referred By Miya gibson Referred To Contact Referral ID Status Reason Start Date Expiration Date V isits Requested Visits Authorized [id number] Authorized 10/18/2023 10/16/2024 999 [id number] Encounter Details Date Type Department Care Team (Latest Contact Info) Description 01/24/2024 12:00 PM EDT Telemedicine Psychiatry, [facility] [address] [place] [address] Uriel Jiang CRNP [address] [facility] [place] [address] ADHD (attention deficit hyperactivity disorder), inattentive type*; Major depressive disorder, recurrent episode, moderate (HCC); DAVIDE (generalized anxiety disorder); No Show for psych appt Allergies Active Allergy Reactions Criticality Noted Date Comments Ketorolac High 01/07/2022 Other Reaction(s): Hives documented as of this encounter (statuses as of 01/24/2024) Medications Medication Sig Dispensed Refills Start Date [...] for 3 days 20 Tablet 12/22/2023 Active Amphetamine-Dextr oamphet ER 20 [...] at bedtime. 90 Tablet 1 01/24/2024 Active QUEtiapine Fumarate 300 MG Oral Tablet (SEROquel) Take 1 Tablet by mouth at bedtime. 90 Tablet 1 07/24/2023 Discontinue d(Refill) documented as of this encounter (statuses as of 01/24/2024) Active Problems Problem Noted Date Diagnosed Date Prediabetes 08/25/2022 DAVIDE (generalized anxiety disorder) 06/26/2020 Panic disorder 06/26/2020 Chronic insomnia 06/26/2020 ADHD (attention deficit hype ractivity disorder), combined type 06/26/2020 Chronic constipation 06/26/2020 Migraine variant 06/26/2020 Tobacco abuse 06/26/2020 documented as of this encounter (statuses as of 01/24/2024) Immunizations Name Administration Dates Next Due PPD [...] as of this encounter Progress Notes * Uriel Jiang CRNP - 01/24/2024 12:08 PM EDT Patient failed to keep appointment. Pt unable to connect to video. Tried reaching pt by phone but there was no audio from the other endof the call. documented in this encounter Miscellaneous Notes * Addendum Note - Uriel Jiang CRNP - 01/24/2024 12:26 PM EDTAddended by: URIEL JIANG on: 01/24/2024 12:26 PM Modules accepted: Orders documented in this encounter Plan of Treatment Upcoming Encounters Date Type Department Care Team (Late st Contact Info) Description 01/26/2024 3:00 PM EDT Telemedicine Psychiatry, [facility] [address] [place] [address] Uriel Jiang CRNP [address] [place] [address] 04/02/2024 2:00 PM EDT Office Visit General Internal Medicine [facility] [address] [facility] [place] [address] Apolinar Rice MD [address] [facility] [place] [address] Scheduled Procedures Name Priority Associated Diagnoses Date/Ti [...] DAVIDE (generalized anxiety disorder) Generalized anxiety disorder No Show for psych appt documented in this encounter Care Teams Lead Worker Of Housekeeping And Laundry Relationship Specialty Start Date End Date Apolinar Rice MD [address] [place] [address] PCP - General Internal Medicine 06/26/20 documented as of this encounter
--- OUTSIDE RECORDS SUMMARY | 2024-02-22 05:47 | External Medical Summary | Summary of Care ---
Author Name Unknown Organization [facility] Address [address] [place] [address] Phone [phone] Care Team Providers Care Asw Specialist Name Role Phone Apolinar Rice MD Primary Care Provider + Reason for Visit * Reason Comments Emergency Department Follow-Up Encounter Details Date Type Department Care Team (Late st Contact Info) Description 12/22/2023 10:20 AM EDT Office Visit General Internal Medicine [facility] [address] [facility] [address] Apolinar Rice MD [address] [place] [address] Flank pain*; Mesenteric adenitis; Constipation, unspecified constipation type Allergies Active Allergy Reactions Criticality Noted Date Comments Ketorolac High 01/07/2022 Other Reaction(s): Hives documented as of this encounter (statuses as of 12/22/2023) Medications Medication Sig Dispensed Refills Start Date [...] 08/24/2022 Active Famotidine 20 MG Oral Tablet (Pepcid)Indication [...] FOR PAIN 60 Tablet 2 10/03/2023 Active Amphetamine-Dextro amphet ER 20 MG Oral Capsule Extended Release 24 Hour (Adderall XR) Take 1 Capsule by mouth in the morning. 30 Capsule 10/11/2023 Active Linzess 290 MCG Oral Capsule (linaCLOtide)Indic [...] 12/20/2023 Active predniSONE 20 MG Oral Tablet (Deltasone)Indicat ions:Flank pain Take 3 tabs for 3 days, 2 tabs for 3 days, 1 tab for 3 days, 1/2 tab for 3 days 20 Tablet 12/22/2023 Active Baclofen 10 MG Oral Tablet (Lioresal)Indicati ons:Flank pain Take 1 Tablet by mouth 2 times a day as needed for Pain, Breakthrough. 60 Tablet 12/22/2023 Active predniSONE 20 MG Oral Tablet (Deltasone)Indicat ions:Costochondrit is, acute Take 3 tabs for 3 days, 2 tabs for 3 days, 1 tab for 3 days, 1/2 tab for 3 days 20 Tablet 01/16/2023 Discontinue d(Patient preference/ discontinua tion) documented as of this encounter (statuses as of 12/22/2023) Active Problems Problem Noted Date Diagnosed Date Prediabetes 08/25/2022 DAVIDE (generalized anxiety disorder) 06/26/2020 Panic disorder 06/26/2020 Chronic insomnia 06/26/2020 ADHD (attention deficit hype ractivity disorder), combined type 06/26/2020 Chronic constipation 06/26/2020 Migraine variant 06/26/2020 Tobacco abuse 06/26/2020 documented as of this encounter (statuses as of 12/22/2023) Immunizations Name Administration Dates Next Due PPD [...] on file documented as of this encounter Last Filed Vital Signs Vital Sign Reading Time Taken Comments Blood Pressure 130/72 12/22/2023 10:21 AM EDT Pulse 82 12/22/2023 10:21 AM EDT Temperature 36.9 C (98.5 F) 12/22/2023 10:21 AM E DT Respiratory Rate 16 12/22/2023 10:21 AM EDT Oxygen Saturation 98% 12/22/2023 10:21 AM EDT Inhaled Oxygen Concentration - - Weight 90.8 kg (200 lb 1.6 oz) 12/22/2023 10:21 AM EDT Height 165.1 cm (5' 5") 12/22/2023 10:21 AM EDT Body Mass Index 33.3 12/22/2023 10:21 AM EDT documented in this encounter Progress Notes * Apolinar Rice MD - 12/22/2023 10:54 AM EDT Chief Complaint Patient presents with Emergency Department Follow-Up SUBJECTIVE: Mya Castro is a 48 year old female with PMH as below who presents for ER follow up. Has had a week or so of right flank pain, radiation to abdomen. Worse when twist, moves. Pain is severe at times. No falls or trauma. Motrin and tylenol have been infective. Also hasn't had Apprion as working on prior auth, and has some constipation so went to ER 12/18/23. No rash or swelling. No abdominal pain. No cp, sob, march. In ER, had labs, ct, told constipation and mesenteric adenitis, sent home. Did bowel clean out and moving bowels better now, flank pain right side lower back still persistent worse with movement or twisting. No dysuria, dark urine or blood in stool. No fecal or bladder incontinence Patient Active Problem List Diagnosis DAVIDE (generalized anxiety disorder) Panic disorder Chronic insomnia ADHD (attention deficit hyperactivity disorder), combined type Chronic constipation Migraine variant Tobacco abuse Prediabetes Current Outpatient Medications Medication Sig Dispense Refill /Folic Acid Oral Tablet Take 1 Tab by mouth daily. Acetaminophen 500 MG Oral Tablet (Tylenol) Take 2 Tablets by mouth every 8 hours as needed for Pain, Severe. 100 Tablet 0 Polyethylene Glycol 3350 17 GM/SCOOP Oral Powder (MiraLax) Take 17 g by mouth as needed for Constipation. Dissolve one heaping tablespoon in 8 ounces of water or juice. 510 g 3 Famotidine 20 MG Oral Tablet (Pepcid) Take 1 Tablet by mouth in the morning and 1 Tablet before bedtime. 60 Tablet 5 hydrOXYzine HCl 25 MG Oral Tablet TAKE 1 TABLET BY MOUTH EVERY 6 HOURS NEEDED FOR ANXIETY 40 Tablet 2 SUMAtriptan Succinate 50 MG Oral Tablet (Imitrex) Take 1 tablets at onset of migraine and one tablet every 2 hours as needed, not more than 2 tablets in 24 hours 6 Tablet 5 QUEtiapine Fumarate 300 MG Oral Tablet (SEROquel) Take 1 Tablet by mouth at bedtime. 90 Tablet 1 Meloxicam 7.5 MG Oral Tablet (Mobic) TAKE 2 TABLETS BY MOUTH IN THE MORNING FOR PAIN 60 Tablet 2 Amphetamine-Dextroamphet ER 20 MG Oral Capsule Extended Release 24 Hour (Adderall XR) Take 1 Capsule by mouth in the morning. 30 Capsule 0 Linzess 290 MCG Oral Capsule (linaCLOtide) Take 1 Capsule by mouth daily before breakfast. 90 Capsule 0 Omeprazole 20 MG Oral Capsule Delayed Release (PriLOSEC) TAKE 1 CAPSULE BY MOUTH ONCE DAILY IN THE MORNING 1 HOUR BEFORE THE FIRST MEAL OF THE DAY 90 Capsule 0 valACYclovir HCl 1 GM Oral Tablet (Valtrex) Take 2 Tablets by mouth in the morning and 2 Tablets before bedtime. For 1 day for cold sores. 12 Tablet 0 predniSONE 20 MG Oral Tablet (Deltasone) Take 3 tabs for 3 days, 2 tabs for 3 days, 1 tab for 3 days, 1/2 tab for 3 days 20 Tablet 0 Baclofen 10 MG Oral Tablet (Lioresal) Take 1 Tablet by mouth 2 times a day as needed for Pain, Breakthrough. 60 Tablet 0 No current facility-administered medications for this visit. Review of patient's allergies indicates: Allergen Reactions Ketorolac Other Reaction(s): Hives Health Maintenance Due Topic Date Due Hepatitis C Screening Never done Hepatitis B Vaccine (1 of 3 - 19+ 3-dose series) Never done Cervical Cancer Screening Never done Colorectal Cancer Screening Never done Mammogram 03/18/2020 COVID-19 Vaccine (2022-) 02/17/2023 Depression Screening 08/25/2023 ROS: CONSTITUTIONAL: No change in weight, No weakness, and No fevers, sweats, or chills PULMONARY: No cough, sputum, or hemoptysis, No wheezing, No rales, No shortness of breath, and No recent change in breathing CARDIOVASCULAR: No chest pain, No shortness of breath, No dyspnea on exertion, No orthopnea, No paroxysmal nocturnal dyspnea, No edema, No palpitations, and No syncope GASTROINTESTINAL: No significant heartburn, No significant change in appetite, No hematemesis, No blood in stools or black tarry stools, No abdominal bloating or early satiety, and No dysphagia EXTREMITIES: No pain, redness or swelling on the joints SKIN/INTEGUMENTARY: No edema, No rash, and No itching ALL OTHER SYSTEMS NEGATIVE I reviewed social, PMH, PSH, and family history and updated where needed. Social History Socioeconomic History Marital status: Unknown Spouse name: Not on file Number of children: Not on file Years of education: Not on file Highest education level: Not on file Occupational History Not on file Tobacco Use Smoking status: Former Current packs/day: 0.00 Types: Cigarettes Quit date: 05/03/2021 Years since quittin.6 Smokeless tobacco: Never Vaping Use Vaping status: Every Day Substances: Nicotine Devices: Pre-filled or refillable cartridge Substance and Sexual Activity Alcohol use: Never Drug use: Never Sexual activity: Yes Partners: Male control/protection: Surgical Other Topics Concern Not on file Social History Narrative Not on file Social Determinants of Health Financial Resource Strain: Not on file Food Insecurity: No Food Insecurity (09/24/2020) Hunger Vital Sign Worried About Running Out of Food in the Last Year: Never true Ran Out of Food in the Last Year: Never true Transportation Needs: Not on file Social Connections: Unknown (12/05/2023) Social Connections How often do you feel lonely or isolated from those around you? (Adult - for ages 18 years and over): Not on file Housing Stability: Not on file Past Medical History: Diagnosis Date ADHD ADHD (attention deficit hyperactivity disorder), combined type 06/26/2020 Anxiety Chronic constipation 06/26/2020 Chronic insomnia 06/26/2020 Chronic migraine 06/26/2020 DAVIDE (generalized anxiety disorder) 06/26/2020 Panic disorder 06/26/2020 Past Surgical History: Procedure Laterality Date DELIVERY 2005 ELBOW ARTHROSCOPY/DEBRIDEMENT Bilateral LAPAROSCOPY,EXPLOR COMMON DUCT 04/2006 Family History Problem Relation Name Age of Onset COPD Mother COPD Father Hypertension Sister OBJECTIVE: PHYSICAL EXAM: BP 130/72 | Pulse 82 | Temp 36.9 C (98.5 F) (Tympanic) | Resp 16 | Ht 1.651 m (5' 5") | Wt 90.8kg (200 lb 1.6 oz) | SpO2 98% | BMI 33.30 kg/m | BSA 2.04 m General: alert, healthy, and no distress Head: Normocephalic, No masses, lesions, tenderness or abnormalities Heart: regular rate & rhythm, no murmur, no gallops, PMI non-displaced, S-1 normal, and S-2 normal Lungs: normal respiratory rate and rhythm, lungs clear to auscultation Abdomen: abdomen soft, non-tender, obese, normal bowel sounds, no masses or organomegaly, no rebound or guarding, and no bladder distention identified Back: Tender paralumbar muscles right no rash or mass, some muscle spasm right side Extremities: no edema, no clubbing, no cyanosis Neuro Exam: alert with fluent speech, gait normal normal strength in legs, has sensation Psych: normal affect, no flight of ideas or tangential thought, good eye contact, no pressured speech I reviewed er cbc, gfr, lft, and urine - +ketones and sp gv high CT A/P: No acute abnormality to explain right flank pain, in particular no evidence of obstructive stone orappendicitis. Subcentimeter mesenteric lymph nodes are incidentally noted in the right lower quadrant, mesenteric adenitis cannot be entirely excluded. ER MDM: The patient has had right-sided flank pain for the past 4 days. She was concerned about her kidneysbecause her urine seemed darker than usual and she seemed to be urinating more frequently. The patient has a history of chronic constipation and usually takes Linzess, but she is still waiting on a prior Auth from her insurance company so she has not been taking it recently. She has had increased constipation symptoms since stopping the Linzess. The patient was given 1 L normal saline solution bolus. She was given IV Tylenol, IV Pepcid, IV morphine, and IV Zofran with improvement of her symptoms. Laboratory studies as above without acute abnormalities. Urinalysis showed trace ketones, but otherwise normal. CT scan of the abdomen pelvis shows no evidence for appendicitis, but the appendix could not be definitively visualized. The CT scan does show signs of mesenteric adenitis which would fit with the patient's history and exam. I suspect her constipation is also contributing to her symptoms. The patient was educated on the pathophysiology, typical course, and typical treatment of mesenteric adenitis. She was advised on performing a cleanout for better treatment of the constipation. She is to follow-up with her family doctor for recheck of her symptoms and to return to the ER sooner forany significantly worsening symptoms. The patient and her were educated on the treatment plan and the discharge instructions. The patient was discharged home in stable condition with her . DIAGNOSIS: Right-sided abdominal pain Mesenteric adenitis Constipation ASSESSMENT: R10.9 Flank pain (primary encounter diagnosis) I88.0 Mesenteric adenitis K59.00 Constipation, unspecified constipation type PLAN: Flank pain (Primary) - URINALYSIS, REFLEX TO CULTURE (NOT FOR NEUTROPENIC PATIENTS); Future; Expected date: 12/22/2023 - XR ABDOMEN 1 VIEW - predniSONE 20 MG Oral Tablet (Deltasone); Take 3 tabs for 3 days, 2 tabs for 3 days, 1 tab for 3 days, 1/2 tab for 3 days - Baclofen 10 MG Oral Tablet (Lioresal); Take 1 Tablet by mouth 2 times a day as needed for Pain, Breakthrough. - XR L SPINE AP AND LATERAL Could be mskt in nature, no abdominal pain or rlq pain. Would check u/a today again to exclude blood Check kub to assess stool burden Trial prednisone (stop all nsaid discussed) and baclofen for pain Follow symptoms Await l spine x-ray Mesenteric adenitis Should improve with time, no abdominal pain today Constipation, unspecified constipation type - XR ABDOMEN 1 VIEW Await prior auth with Linzess Follow symptoms Follow Up: Return in about 3 months (around 03/23/2024), or if symptoms worsen or fail to improve. documented in this encounter Nursing Notes * Brigette Wilde LPN - 12/22/2023 10:20 AM EDT Patient presents today for an ER follow up. She has been having issues with constipation and now extreme pain in her back. documented in this encounter Plan of Treatment Upcoming Encounters Date Type Department Care Team (Late st Contact Info) Description 01/24/2024 12:00 PM EDT Telemedicine Psychiatry, [facility] [address] [place] [address] Nito Jiang CRNP [address] [place] [address] 04/02/2024 2:00 PM EDT Office Visit General Internal Medicine [facility] [address] [place] [address] Apolinar Rice MD [address] [facility] [place] [address] Pending Results Name Type Priority Associated Diagnoses Date /Time XR ABDOMEN 1 VIEW Medical Imaging STAT Flank pain Constipation, unspecified constipation type 12/22/2023 10:59 AM EDT XR L SPINE AP AND LATERAL Medical Imaging STAT Flank pain 12/22/2023 10:59 AM EDT Scheduled Orders Name Type Priority Associated Diagnoses Orde r Schedule URINALYSIS, REFLEX TO CULTURE (NOT FOR NEUTROPENIC PATIENTS) Lab Routine Flank pain Expected: 12/22/2023, Expires: 12/21/2024 Scheduled Procedures Name Priority Associated Diagnoses Date/Ti [...] of this encounter Visit Diagnoses Diagnosis Flank pain- Primary Abdominal pain, unspecified site Mesenteric adenitis Nonspecific mesenteric lymphadenitis Constipation, unspecified constipation type documented in this encounter Care Teams Asw Specialist Relationship Specialty Start Date End Date Apolinar Rice MD [address] [place] [address] PCP - General Internal Medicine 06/26/20 documented as of this encounter
--- OUTSIDE RECORDS SUMMARY | 2024-02-22 05:47 | External Medical Summary | Summary of Care ---
Author Name Unknown Organization [facility] Address [address] [place] [address] Phone [phone] Care Team Providers Care Fiber Optics Supervisor Name Role Phone Apolinar Rice MD Primary Care Provider + Reason for Referral * Evaluate & Treat - Unlimited Visits (Within 10 days (routine)) - Pending Review Specialty Diagnoses / Procedures Referred By Miya gibson Referred To Contact Gastroenterology Diagnoses Chronic constipation Apolinar Rice MD [address] [place] [address] Referral ID Status Reason Start Date Expiration Date Visits Requested Visits Authorized [id number] Pending Review Specialty Services Required 12/22/2023 999 [...] [employer] [address] [place] [address] [address] Apolinar Rice MD 200 [facility] [place] [address] abnormal imaging study (Abdominal x ray) Allergies Active Allergy Reactions Criticality Noted Date Comments Ketorolac High 01/07/2022 Other Reaction(s): Hives documented as of this encounter (statuses as of 01/03/2024) Medications Medication Sig Dispensed Refills Start Date [...] or juice. 510 g 3 4 Active Polyethylene Glycol 3350 17 GM/SCOOP Oral Powder (MiraLax)Indicati ons:Constipation, unspecified constipation type Take 17 g by mouth as needed for Constipation. Dissolve one heaping tablespoon in 8 ounces of water or juice. 510 g 3 3 12/26/19 24 Discontinued(Ref ill) Famotidine 20 MG Oral Tablet (Pepcid)Indicatio ns:Greater trochanteric pain syndrome of right lower extremity,Pain of right thigh,Chronic pain of right knee,Lumbar degenerative disc disease Take 1 Tablet by mouth in the morning and 1 Tablet before bedtime. 60 Tablet 5 3 12/28/19 24 Discontinued Amphetamine-Dextr oamphet ER 20 MG Oral Capsule Extended Release 24 Hour (Adderall XR) Take 1 Capsule by mouth in the morning. 30 Capsule 4 12/22/19 24 Discontinued(Ref ill) documented as of this encounter (statuses as of 01/03/2024) Active Problems Problem Noted Date Diagnosed Date Prediabetes 08/25/2022 DAVIDE (generalized anxiety disorder) 06/26/2020 Panic disorder 06/26/2020 Chronic insomnia 06/26/2020 ADHD (attention deficit hype ractivity disorder), combined type 06/26/2020 Chronic constipation 06/26/2020 Migraine variant 06/26/2020 Tobacco abuse 06/26/2020 documented as of this encounter (statuses as of 01/03/2024) Immunizations Name Administration Dates Next Due PPD [...] encounter Miscellaneous Notes * Telephone Encounter - Arlene Harmon LPN - 01/03/2024 2:53 PM EDT My g message sent to patient. * Telephone Encounter - Margarita Foster MED ASSIST - 12/26/2023 2:50 PM EDT Left message for the patient to call the office. Upon return call please transfer to a dedicated telephone nurse. * Addendum Note - Apolinar Rice MD [...] TE 12/12: PA submitted via [facility] [place]: [id number] Patient would like someone to look into [...] pharmacy. She has not been able to pickler helper her Linzess as it needs PA done. [...] Follow Up: When was patient seen: 12/17 [facility] ED: [facility] What were they seen for: flank [...] Info) Description 01/24/2024 12:00 PM EDT Telemedicine [facility] [address] [place] [place] [address] Nito Jiang CRNP [address] [place] [address] 04/02/2024 2:00 PM EDT Office Visit General Internal Medicine [facility] [place] [address] [facility] [place] [address] Apolinar Rice MD [address] [facility] [place] [address] Scheduled Procedures Name Priority Associated Diagnoses Date/Ti [...] type documented in this encounter Care Teams Fiber Optics Supervisor Relationship Specialty Start Date End Date Apolinar Rice MD [address] [place] [address] PCP - General Internal Medicine 06/26/20 documented as of this encounter
--- OUTSIDE RECORDS SUMMARY | 2024-02-22 05:47 | External Medical Summary | Summary of Care ---
Author Name Unknown Organization [facility] Address [address] [place] [address] Phone [phone] Care Team Providers Care Replenishment Specialist Name Role Phone Apolinar Rice MD Primary Care Provider + Reason for Visit * Reason Onset Date Comments Test Results Imaging Study 12/25/2023 Encounter Details Date Type Department Care Team (Late st Contact Info) Description 12/25/2023 Telephone General Internal Medicine [facility] [address] [place] [address] Apolinar Rice MD [address] [place] [address] Test Results Imaging Study Allergies Active Allergy Reactions Criticality Noted Date [...] encounter Miscellaneous Notes * Telephone Encounter - Kelly Salas LPN - 12/26/2023 8:51 AM EDT Pt was already made aware * Telephone Encounter - Apolinar Rice MD - 12/25/2023 3:21 PM EDT Noted, will await imaging, if pain worsens or persists despite prednisone, come back for recheck * Telephone Encounter - Margarita Foster MED ASSIST - 12/25/2023 10:51 AM EDT She states that she did have a little improvement the first day. She states that when she moves she is having pain. The pain is in an "L" shape such as down her spine and then to the right. She states that she had fallen down the steps on December 15 and was in the ER. She states that when she was in [place] she had an MRI showing that she had a bulging disc. She isgoing to upload the report in her [email or web address]. * Telephone Encounter - Margarita Foster MED ASSIST - 12/25/2023 10:50 AM EDT ----- Message from Apolinar Rice MD sent at 12/22/2023 1:06 PM EDT ----- No fx, mild l2/l3 degenerative disc disease, cont prednisone, baclofen, if pain worsens or persistsnext week let us know, documented in this encounter Plan of Treatment Upcoming Encounters Date Type Department Care Team (Late st Contact Info) Description 01/24/2024 12:00 PM EDT Telemedicine Psychiatry, [facility] [address] [place] [address] Nito Jiang CRNP [address] [place] [address] 04/02/2024 2:00 PM EDT Office Visit General Internal Medicine [facility] [address] [facility] [place] [address] [facility] MD [facility] [address] Scheduled Procedures Name Priority Associated Diagnoses Date/Ti [...] filedocumented as of this encounter Care Teams Replenishment Specialist Relationship Specialty Start Date End Date Apolinar Rice MD [address] [place] [address] PCP - General Internal Medicine 06/26/20 documented as of this encounter
--- OUTSIDE RECORDS SUMMARY | 2024-02-22 05:47 | External Medical Summary | Summary of Care ---
Author Name Unknown Organization [facility] Address [address] [facility] [address] Phone [phone] Care Team Providers Care Towboat Pilot Name Role Phone Apolinar Rice MD Primary Care Provider + Reason for Visit * - Authorized Specialty Diagnoses / Procedures Referred By Miya gibson Referred To Contact Referral ID Status Reason Start Date Expiration Date V isits Requested Visits Authorized [id number] Authorized 10/18/2023 10/16/2024 [id number] Encounter Details Date Type Department Care Team (Latest Contact Info) Description 01/24/2024 12:00 PM EDT Telemedicine Psychiatry, [facility] [address] [place] [address] Uriel Jiang CRNP 132 [facility] [place] [address] ADHD (attention deficit hyperactivity disorder), inattentive type*; [...] there was no audio from the other end of the call. documented in this encounter Miscellaneous [...] State [place] [address] [place] [address] Apolinar Rice MD 200 [facility] [place] [address] Scheduled Procedures Name Priority Associated Diagnoses Date/Ti [...] appt documented in this encounter Care Teams Towboat Pilot Relationship Specialty Start Date End Date Apolinar Rice MD [address] [place] [address] PCP - General Internal Medicine 06/26/20 documented as of this encounter
--- OUTSIDE RECORDS SUMMARY | 2024-02-22 05:47 | External Medical Summary | Summary of Care ---
Author Name Unknown Organization [facility] Address [address] [facility] [place] [address] Phone [phone] Care Team Providers Care Railway Track Plant Operator Name Role Phone Apolinar Rice MD Primary Care Provider + Reason for Visit * Reason Onset Date Comments Medication Refill 12/22/2023 Encounter Details Date Type Department Care Team (Late st Contact Info) Description 12/22/2023 Refill Tariq Nieves [address] [place] [address] Uriel Jiang CRNP [address] [place] [address] Allergies Active Allergy Reactions Criticality Noted Date [...] for Pain, Breakthrough. 60 Tablet 12/22/2023 Active Amphetamine-Dextro amphet ER 20 MG Oral Capsule Extended Release 24 Hour (Adderall XR) Take 1 Capsule by mouth in the morning. 30 Capsule 12/26/2023 Active Amphetamine-Dextro amphet ER 20 MG Oral Capsule Extended Release 24 Hour (Adderall XR) Take 1 Capsule by mouth in the morning. 30 Capsule 10/11/2023 Discontinue d(Refill) documented as of this encounter [...] encounter Miscellaneous Notes * Telephone Encounter - Uriel Jiang CRNP - 12/26/2023 1:32 PM EDTSigned Prescriptions: Disp Refills Amphetamine-Dextroamphet ER 20 MG Oral Cap*30 Cap*0 Sig: Take 1 Capsule by mouth in the morning. Authorizing Provider: URIEL JIANG * Telephone Encounter - Shelbie Kwon LPN - 12/26/2023 12:32 PM EDTPending Prescriptions: Disp Refills Amphetamine-Dextroamphet ER 20 MG Oral Cap*30 Cap*0 Sig: Take 1 Capsule by mouth in the morning. * Telephone Encounter - Shelbie Kwon LPN - 12/26/2023 12:30 PM EDT Refill request from patient (Jhonny) for Amphetamine-Dextroamphet ER 20 MG Oral Capsule Extended Release 24 Hour . Medication last filled on 10/11/2023 with 0 refills. Patient last seen on 10/25/2023 with return appointment scheduled for 01/24/2024. Patient had 0 cancelled appointments and 0 NO SHOW appointments. documented in this encounter Plan of Treatment Upcoming Encounters Date Type Department Care Team (Late st Contact Info) Description 01/24/2024 12:00 PM EDT Telemedicine [facility], [facility] 132 [facility] [place] [address] Uriel Jiang CRNP 132 [facility] [place] [address] 04/02/2024 2:00 PM EDT Office Visit General Internal Medicine [address] [place] [address] [place] [address] Apolinar Rice MD 200 [facility] [place] [address] Scheduled Procedures Name Priority Associated Diagnoses Date/Ti [...] filedocumented as of this encounter Care Teams Railway Track Plant Operator Relationship Specialty Start Date End Date Apolinar Rice MD 200 [place] [address] PCP - General Internal Medicine 06/26/20 documented as of this encounter
--- OUTSIDE RECORDS SUMMARY | 2024-02-22 05:47 | External Medical Summary | Summary of Care ---
Author Name Unknown Organization [facility] Address [address] [place] [address] Phone [phone] Care Team Providers Care Candy Wrapping Machine Operator Name Role Phone Apolinar Rice MD Primary Care Provider + Reason for Referral * Evaluate & Treat - Unlimited Visits (Within 10 days (routine)) - Pending Review Specialty Diagnoses / Procedures Referred By Miya gibson Referred To Contact Gastroenterology Diagnoses Chronic constipation Apolinar Rice MD [address] [place] [address] Referral ID Status Reason Start Date Expiration Date Visits Requested Visits Authorized [id number] Pending Review Specialty Services Required 12/22/2023 999 [...] State [employer] [address] [place] [address] [address] Apolinar Rice MD 200 [facility] [place] [address] abnormal imaging study (Abdominal x ray) Allergies Active Allergy Reactions Criticality Noted Date Comments Ketorolac High 01/07/2022 Other Reaction(s): Hives documented as of this encounter (statuses as of 01/02/2024) Medications Medication Sig Dispensed Refills Start Date [...] as of this encounter (statuses as of 01/02/2024) Active Problems Problem Noted Date Diagnosed Date Prediabetes 08/25/2022 DAVIDE (generalized anxiety disorder) 06/26/2020 Panic disorder 06/26/2020 Chronic insomnia 06/26/2020 ADHD (attention deficit hype ractivity disorder), combined type 06/26/2020 Chronic constipation 06/26/2020 Migraine variant 06/26/2020 Tobacco abuse 06/26/2020 documented as of this encounter (statuses as of 01/02/2024) Immunizations Name Administration Dates Next Due PPD [...] TE 12/12: PA submitted via M [place]: [email or web address] Patient would like someone to look into [...] pharmacy. She has not been able to worm picker her Linzess as it needs PA [...] Follow Up: When was patient seen: 12/17 [facility]: [email or web address] What were they seen for: flank pain [...] 01/24/2024 12:00 PM EDT Telemedicine Tariq Nieves Hernandez [address] [place] [address] Nito Jiang CRNP [address] [place] [address] 04/02/2024 2:00 PM EDT Office Visit General Internal Medicine [place] [address] [facility] [place] [address] Apolinar Rice MD 200 [facility] [place] [address] Scheduled Procedures Name Priority Associated Diagnoses Date/Ti [...] type documented in this encounter Care Teams Candy Wrapping Machine Operator Relationship Specialty Start Date End Date Apolinar Rice MD 200 [place] [address] PCP - General Internal Medicine 06/26/20 documented as of this encounter
--- OUTSIDE RECORDS SUMMARY | 2024-02-22 05:48 | External Medical Summary | Summary of Care ---
Author Name Unknown Organization [facility] Address [address] [place] [address] Phone [phone] Care Team Providers Care Yarn Hauler Name Role Phone Apolinar Rice MD Primary Care Provider + Reason for Visit * Reason Comments eRx-Medication Refill Encounter Details Date Type Department Care Team (Late st Contact Info) Description 11/28/2023 Refill General Internal Medicine [facility] [address] [place] [address] Apolinar Rice MD 200 [place] [address] Acute gastritis without hemorrhage, unspecified gastritis type Allergies No known active allergiesdocumented as of this encounter (statuses as of 11/29/2023) Medications Medication Sig Dispensed Refills Start Date [...] or juice. 510 g 3 08/24/2022 Active valACYclovir HCl 1 GM Oral Tablet (Valtrex)Indication s:Cold sore Take 2 Tablets by mouth in the morning and 2 Tablets before bedtime. For 1 day for cold sores. 4 Tablet 11 12/19/2022 Active Additional Information Patient not taking.Reported on 12/30/2022 Famotidine 20 MG Oral Tablet (Pepcid)Indications :Greater trochanteric pain syndrome of right lower extremity,Pain of right thigh,Chronic pain of right knee,Lumbar degenerative disc disease Take 1 Tablet by mouth in the morning and 1 Tablet before bedtime. 60 Tablet 5 12/23/2022 Active predniSONE 20 MG Oral Tablet (Deltasone)Indicati ons:Costochondritis , acute Take 3 tabs for 3 days, 2 tabs for 3 days, 1 tab for 3 days, 1/2 tab for 3 days 20 Tablet 01/16/2023 Active hydrOXYzine HCl 25 MG Oral TabletIndications:G [...] at bedtime. 90 Tablet 1 07/24/2023 Active Linzess 290 MCG Oral Capsule (linaCLOtide)Indica tions:Chronic constipation Take 1 Capsule by mouth daily before breakfast. 90 Capsule 09/01/2023 Active Omeprazole 20 MG Oral Capsule Delayed Release (PriLOSEC)Indicatio ns:Acute gastritis without hemorrhage, unspecified gastritis type TAKE 1 CAPSULE BY MOUTH ONCE DAILY IN THE MORNING 1 HOUR BEFORE THE FIRST MEAL OF THE DAY 90 Capsule 09/04/2023 Active Meloxicam 7.5 MG Oral Tablet (Mobic)Indications: Atypical chest pain,Cervical radiculopathy,Thora cic radiculopathy,Chest pain, unspecified type TAKE 2 TABLETS BY MOUTH IN THE MORNING FOR PAIN 60 Tablet 2 10/03/2023 Active Amphetamine-Dextroa mphet ER 20 MG Oral Capsule Extended Release 24 Hour (Adderall XR) Take 1 Capsule by mouth in the morning. 30 Capsule 10/11/2023 Active documented as of this encounter (statuses as of 11/29/2023) Active Problems Problem Noted Date Diagnosed Date Prediabetes 08/25/2022 DAVIDE (generalized anxiety disorder) 06/26/2020 Panic disorder 06/26/2020 Chronic insomnia 06/26/2020 ADHD (attention deficit hype ractivity disorder), combined type 06/26/2020 Chronic constipation 06/26/2020 Migraine variant 06/26/2020 Tobacco abuse 06/26/2020 documented as of this encounter (statuses as of 11/29/2023) Immunizations Name Administration Dates Next Due PPD [...] money to get more. Never true 09/24/2020 Sex and Gender Information Value Date Recorded Sex Assigned at Female 06/26/2020 10:53 AM EST Gender Identity Female 06/26/2020 10:53 AM EST Sexual Orientation Straight 06/26/2020 10 :53 AM EST Job Start Date Occupation Industry Not on file Not on file Not on file documented as of this encounter Miscellaneous Notes * Telephone Encounter - Elias Hurtado [facility] - 11/29/2023 12:48 PM EDTRefused Prescriptions: Disp Refills Omeprazole 20 MG Oral Capsule Delayed Rele*90 Cap*0 Sig: TAKE 1CAPSULE BY MOUTH ONCE DAILY IN THE MORNING 1 HOUR BEFORE THE FIRST MEAL OF THE DAYRefused By: ELIAS HURTADOReason for Refusal: Duplicate RequestReason for Refusal Comment: previous request pending with pcp documented in this encounter Plan of Treatment Upcoming Encounters Date Type Department Care Team (Late st Contact Info) Description 01/24/2024 12:00 PM EDT Telemedicine [facility], [facility] [address] [place] [address] Nito Jiang CRNP [address] [place] [address] Scheduled Procedures Name Priority Associated Diagnoses Date/Ti me COLONOSCOPY FLEXIBLE PROXIMA L DIAGNOSTIC Recall Special screening for malignant neoplasms, colon Health Maintenance Due Date Last Done Comments Hepatitis C Screening 01/10/1992 Hepatitis B (1 of 3 - 19+ 3-dose series) 1993 Pap Smear 1995 Cervical Cancer Screening 01/10/2004 HPV/Co-Test 01/10/2004 Cologuard 2019 Colonoscopy 2019 Colorectal Cancer Screening 2019 Fecal Occult Blood Test 2019 Sigmoidoscopy 2019 Mammogram 03/18/2020 03/18/2019 COVID-19 Vaccine ( season) 2023 Depression Screening 08/25/2023 08/24/2022 Influenza Vaccine (FLU shot) (Season Ended) 2024 08/24/2022, 05/10/2021, 05/10/2021, Additional history exists HbA1c 11/21/2024 11/22/2023, 01/2023, 01/29/2021 Lipid Panel 11/21/2028 11/22/2023, 01/2023, 01/29/2021, Additional history exists DTaP,Tdap,and Td Vaccines (2 - Td or Tdap) 06/26/2030 06/26/2020 Pneumococcal Vaccine: Pediatrics (0 to 5 Years) and At-Risk Patients (6 to 64 Years) Aged Out 06/26/2020 No longer eligible based on patient's age to complete this topic GARDASIL-HPV IMMUNIZATION SERIES Aged Out No longer eligible based on patient's age to complete this topic MENINGOCOCCAL (MENACTRA/MENVEO) Aged Out No longer eligible based on patient's age to complete this topic documented as of this encounter Medical Devices Not on filedocumented as of this encounter Visit Diagnoses Diagnosis Acute gastritis without hemorrhage, unspecified gastritis type documented in this encounter Care Teams Yarn Hauler Relationship Specialty Start Date End Date Apolinar Rice MD [address] [place] [address] PCP - General Internal Medicine 06/26/20 documented as of this encounter
--- OUTSIDE RECORDS SUMMARY | 2024-02-22 05:48 | External Medical Summary ---
Author Name Unknown Address Unknown Organization K01:[facility] - [address] [place] [address] Laboratory Report Ordering Provider Test Date Status NETTA PAK 11/22/2023 16:11:40 Final Observation Date Value Abnormality Reference (Units ) Status Magnesium 11/22/2023 16:11:40 1.9 1.5-2.6 (m g/dL) Final Performing Location [facility] - [address] [place] [address]
--- OUTSIDE RECORDS SUMMARY | 2024-02-22 05:48 | External Medical Summary ---
Author Name Unknown Address Unknown Organization [id number]:[facility] - [address] [place] [address] Laboratory Report Ordering Provider Test Date Status RITA NUNEZ 11/22/2023 16:11:40 Final Observation Date Value Abnormality Reference (Units ) Status MYCODE SPECIMEN-SST 11/22/2023 16:11:40 Freezing of extracted DNA, whole blood and/or serum. Final Performing Location [facility] - [address] [place] [address]
--- OUTSIDE RECORDS SUMMARY | 2024-02-22 05:48 | External Medical Summary | Summary of Care ---
Author Name Unknown Organization [facility] Address [address] [facility] [place] [address] Phone [phone] Care Team Providers Care Route Deliverer Name Role Phone Apolinar Rice MD Primary Care Provider + Reason for Visit * Reason Onset Date Comments Medication Refill 08/30/2023 Encounter Details Date Type Department Care Team (Late st Contact Info) Description 08/30/2023 Refill PsychiatryTariq Hernandez [address] [place] [address] Uriel Jiang CRNP [address] [facility] [place] [address] Allergies No known active allergiesdocumented as of this encounter (statuses as of 08/31/2023) Medications Medication Sig Dispensed Refills Start Date End Date Status /Folic Acid Oral Tablet Take 1 Tab by mouth daily. 0 Active Acetaminophen 500 MG Oral Tablet (Tylenol)Indicatio ns:Chest pain, unspecified type Take 2 Tablets by mouth every 8 hours as needed for Pain, Severe. 100 Tablet 0 06/30/2021 Active Polyethylene Glycol 3350 17 GM/SCOOP [...] Additional Information Patient not taking.Reported on 12/30/2022 Omeprazole 20 MG Oral Capsule Delayed ReleaseIndications :Acute gastritis without hemorrhage, unspecified gastritis type Take 1 Capsule by mouth in the morning. 1 hour before the first meal of the day. 90 Capsule 1 12/19/2022 Active Meloxicam 7.5 MG Oral Tablet (Mobic)Indications :Atypical chest pain,Cervical radiculopathy,Thor acic radiculopathy,Ches t pain, unspecified type TAKE 2 TABLETS BY MOUTH IN THE MORNING FOR PAIN 60 Tablet 5 12/23/2022 Active Famotidine 20 MG Oral Tablet (Pepcid)Indication s:Greater trochanteric pain syndrome of right lower extremity,Pain of right thigh,Chronic pain of right knee,Lumbar degenerative disc disease Take 1 Tablet by mouth in the morning and 1 Tablet before bedtime. 60 Tablet 5 12/23/2022 Active predniSONE 20 MG Oral Tablet (Deltasone)Indicat ions:Costochondrit is, acute Take 3 tabs for 3 days, 2 tabs for 3 days, 1 tab for 3 days, 1/2 tab for 3 days 20 Tablet 0 01/16/2023 Active hydrOXYzine HCl 25 MG Oral TabletIndications: DAVIDE (generalized anxiety disorder) TAKE 1 TABLET BY MOUTH EVERY 6 HOURS NEEDED FOR ANXIETY 40 Tablet 2 05/09/2023 Active Linzess 290 MCG Oral Capsule (linaCLOtide)Indic ations:Chronic constipation Take 1 Capsule by mouth daily before breakfast. 90 Capsule 0 05/15/2023 Active SUMAtriptan Succinate 50 MG Oral Tablet (Imitrex)Indicatio ns:Chronic insomnia Take 1 tablets at onset of migraine and one tablet every 2 hours as needed, not more than 2 tablets in 24 hours 6 Tablet 5 05/15/2023 Active QUEtiapine Fumarate 300 MG Oral Tablet (SEROquel) Take 1 Tablet by mouth at bedtime. 90 Tablet 1 07/24/2023 Active Amphetamine-Dextro amphet ER 20 MG Oral Capsule Extended Release 24 Hour (Adderall XR) Take 1 Capsule by mouth in the morning. 30 Capsule 0 08/31/2023 Active Amphetamine-Dextro amphet ER 20 MG Oral Capsule Extended Release 24 Hour (Adderall XR) Take 1 Capsule by mouth in the morning. 30 Capsule 0 07/12/2023 Discontinue d(Refill) documented as of this encounter (statuses as of 08/31/2023) Active Problems Problem Noted Date Diagnosed Date Prediabetes 08/25/2022 DAVIDE (generalized anxiety disorder) 06/26/2020 Panic disorder 06/26/2020 Chronic insomnia 06/26/2020 ADHD (attention deficit hype ractivity disorder), combined type 06/26/2020 Chronic constipation 06/26/2020 Migraine variant 06/26/2020 Tobacco abuse 06/26/2020 documented as of this encounter (statuses as of 08/31/2023) Immunizations Name Administration Dates Next Due PPD [...] Telephone Encounter - Uriel Jiang CRNP - 08/31/2023 4:08 PM EDTSigned Prescriptions: Disp Refills Amphetamine-Dextroamphet ER 20 MG Oral Cap*30 Cap*0 Sig: Take 1 Capsule by mouth in the morning. Authorizing Provider: URIEL JIANG * Telephone Encounter - Aurelia Saleh MED ASSIST - 08/31/2023 11:04 AM EDTPending Prescriptions: Disp Refills Amphetamine-Dextroamphet ER 20 MG Oral Cap*30 Cap*0 Sig: Take 1 Capsule by mouth in the morning. * Telephone Encounter - Aurelia Saleh MED ASSIST - 08/31/2023 11:03 AM EDT Refill request from patient (Jhonny) for Adderall XR 20mg. Medication last filled on 07/12/23 with 0 refills. Patient last seen on 07/24/23 with return appointment scheduled for 10/23/23. Patient had 0 cancelled appointments and 0 NO SHOW appointments. documented in this encounter Plan of Treatment Upcoming Encounters Date Type Department Care Team (Late st Contact Info) Description 10/23/2023 12:30 PM EDT Telemedicine Psychiatry, Tariq Hernandez [address] [place] [address] Uriel Jiang CRNP [address] [place] [address] Scheduled Procedures Name Priority Associated Diagnoses Date/Ti [...] 03/18/2020 03/18/2019 COVID-19 Vaccine ( season) 2023 Influenza Vaccine (FLU shot) (#1) 2023 08/24/2022, 05/10/2021, 05/10/2021, Additional history exists Depression Screening 08/25/2023 08/24/2022 HbA1c 08/25/2023 08/24/2022, 01/29/2021 Lipid Panel 08/25/2027 08/24/2022, 01/17, 06/26/2020 DTaP,Tdap,and Td Vaccines (2 - Td or [...] filedocumented as of this encounter Care Teams Route Deliverer Relationship Specialty Start Date End Date Apolinar Rice MD [address] [facility] [place] [address] PCP - General Internal Medicine 06/26/20 documented as of this encounter
--- OUTSIDE RECORDS SUMMARY | 2024-02-22 05:48 | External Medical Summary ---
Author Name Unknown Address Unknown Organization [id number]:[facility] - [address] [place] [address] Laboratory Report Ordering Provider Test Date Status NETTA PAK 11/22/2023 16:11:40 Final Observation Date Value Abnormality Reference (Units ) Status Vitamin B12 11/22/2023 16:11:40 202 [id number] (pg/mL) Final Performing Location [facility] - [address] [place] [address]
--- OUTSIDE RECORDS SUMMARY | 2024-02-22 05:48 | External Medical Summary | Summary of Care ---
Author Name Unknown Organization [facility] Address [address] [place] [address] Phone [phone] Care Team Providers Care Applications Consultant Name Role Phone Apolinar Martin MD Primary Care Provider + Reason for Visit * Reason Onset Date Comments Medication Refill 08/30/2023 Encounter Details Date Type Department Care Team (Late st Contact Info) Description 08/30/2023 Telephone General Internal Medicine [facility] [address] [place] [address] Apolinar Martin MD [address] [place] [address] Medication Refill Allergies No known active allergiesdocumented as of this encounter (statuses as of 09/25/2023) Medications Medication Sig Dispensed Refills Start Date End Date Status /Folic Acid Oral Tablet Take 1 Tab by mouth daily. 0 Active Acetaminophen 500 MG Oral Tablet (Tylenol)Indicat ions:Chest pain, unspecified type Take 2 Tablets by mouth every 8 hours as needed for Pain, Severe. 100 Tablet 0 2 Active Polyethylene Glycol 3350 17 GM/SCOOP Oral Powder (MiraLax)Indicat ions:Constipatio n, unspecified constipation type Take 17 g by mouth as needed for Constipation. Dissolve one heaping tablespoon in 8 ounces of water or juice. 510 g 3 3 Active valACYclovir HCl 1 GM Oral Tablet (Valtrex)Indicat ions:Cold sore Take 2 Tablets by mouth in the morning and 2 Tablets before bedtime. For 1 day for cold sores. 4 Tablet 11 3 Active Additional Information Patient not taking.Reported on 12/30/2022 Meloxicam 7.5 MG Oral Tablet (Mobic)Indicatio ns:Atypical chest pain,Cervical radiculopathy,Th oracic radiculopathy,Ch est pain, unspecified type TAKE 2 TABLETS BY MOUTH IN THE MORNING FOR PAIN 60 Tablet 5 3 Active Famotidine 20 MG Oral Tablet (Pepcid)Indicati ons:Greater trochanteric pain syndrome of right lower extremity,Pain of right thigh,Chronic pain of right knee,Lumbar degenerative disc disease Take 1 Tablet by mouth in the morning and 1 Tablet before bedtime. 60 Tablet 5 3 Active predniSONE 20 MG Oral Tablet (Deltasone)Indic ations:Costochon dritis, acute Take 3 tabs for 3 days, 2 tabs for 3 days, 1 tab for 3 days, 1/2 tab for 3 days 20 Tablet 0 3 Active hydrOXYzine HCl 25 MG Oral TabletIndication s:DAVIDE (generalized anxiety disorder) TAKE 1 TABLET BY MOUTH EVERY 6 HOURS NEEDED FOR ANXIETY 40 Tablet 2 3 Active SUMAtriptan Succinate 50 MG Oral Tablet (Imitrex)Indicat ions:Chronic insomnia Take 1 tablets at onset of migraine and one tablet every 2 hours as needed, not more than 2 tablets in 24 hours 6 Tablet 5 3 Active QUEtiapine Fumarate 300 MG Oral Tablet (SEROquel) Take 1 Tablet by mouth at bedtime. 90 Tablet 1 4 Active Linzess 290 MCG Oral Capsule (linaCLOtide)Ind ications:Chronic constipation Take 1 Capsule by mouth daily before breakfast. 90 Capsule 0 4 Active Amphetamine-Dext roamphet ER 20 MG Oral Capsule Extended Release 24 Hour (Adderall XR) Take 1 Capsule by mouth in the morning. 30 Capsule 0 4 Active Omeprazole 20 MG Oral Capsule Delayed ReleaseIndicatio ns:Acute gastritis without hemorrhage, unspecified gastritis type Take 1 Capsule by mouth in the morning. 1 hour before the first meal of the day. 90 Capsule 1 3 09/04/19 24 Discontinued Linzess 290 MCG Oral Capsule (linaCLOtide)Ind ications:Chronic constipation Take 1 Capsule by mouth daily before breakfast. 90 Capsule 0 3 08/30/19 24 Discontinued(Ref ill) documented as of this encounter (statuses as of 09/25/2023) Active Problems Problem Noted Date Diagnosed Date Prediabetes 08/25/2022 DAVIDE (generalized anxiety disorder) 06/26/2020 Panic disorder 06/26/2020 Chronic insomnia 06/26/2020 ADHD (attention deficit hype ractivity disorder), combined type 06/26/2020 Chronic constipation 06/26/2020 Migraine variant 06/26/2020 Tobacco abuse 06/26/2020 documented as of this encounter (statuses as of 09/25/2023) Immunizations Name Administration Dates Next Due PPD [...] encounter Miscellaneous Notes * Telephone Encounter - Tiara Whelan OSA - 09/25/2023 12:07 PM EDT LMOM to schedule an appointment to get re established. 09/25/2023 * Telephone Encounter - Apolinar Martin MD - 09/01/2023 1:18 PM EDTSigned Prescriptions: Disp Refills Linzess 290 MCG Oral Capsule (linaCLOtide) 90 Cap*0 Sig: Take 1 Capsule by mouth daily before breakfast. Authorizing Provider: APOLINAR MARTIN * Telephone Encounter - Apolinar Martin MD - 09/01/2023 1:18 PM EDT Needs visit to re-establish now that Ton has left and she saw him last 2 times * Telephone Encounter - Kelly Salas LPN - 09/01/2023 12:13 PM EDTPending Prescriptions: Disp Refills Linzess 290 MCG Oral Capsule (linaCLOtide) 90 Cap*0 Sig: Take 1 Capsule by mouth daily before breakfast. * Telephone Encounter - Mehreen Calvert - 08/31/2023 5:36 PM EDTPending Prescriptions: Disp Refills Linzess 290 MCG Oral Capsule (linaCLOtide) 90 Cap*0 Sig: Take 1Capsule by mouth daily before breakfast. documented in this encounter Plan of Treatment Upcoming Encounters Date Type Department Care Team (Late st Contact Info) Description 10/23/2023 12:30 PM EDT [facility] [address] [place] [address] Nito Jiang CRNP [address] [place] [address] Scheduled Procedures Name Priority Associated Diagnoses Date/Ti [...] ( season) 2023 Depression Screening 08/25/2023 08/24/2022 HbA1c 08/25/2023 08/24/2022, 01/29/2021 Influenza Vaccine (FLU shot) (Season Ended) 2024 08/24/2022, 05/10/2021, 05/10/2021, Additional history exists Lipid Panel 08/25/2027 08/24/2022, 01/17, 06/26/2020 DTaP,Tdap,and [...] of this encounter Visit Diagnoses Diagnosis Chronic constipation Unspecified constipation documented in this encounter Care Teams Applications Consultant Relationship Specialty Start Date End Date Apolinar Martin MD [address] [place] [address] PCP - General Internal Medicine 06/26/20 documented as of this encounter
--- OUTSIDE RECORDS SUMMARY | 2024-02-22 05:48 | External Medical Summary | Summary of Care ---
Author Name Unknown Organization [facility] Address [address] [place] [address] Phone [phone] Care Team Providers Care Supervisor Quilting Name Role Phone Apolinar Rice MD Primary Care Provider + Reason for Visit * Reason Comments Medication Management * - Authorized Specialty Diagnoses / Procedures Referred By Miya gibson Referred To Contact Referral ID Status Reason Start Date Expiration Date V isits Requested Visits Authorized [id number] Authorized 10/18/2023 10/16/[phone] Encounter Details Date Type Department Care Team (Latest Contact Info) Description 10/25/2023 12:00 PM EDT [facility] [address] [place] [address] [facility]ito [facility] CR[facility] [place] [address] ADHD (attention deficit hyperactivity disorder), inattentive type*; Major depressive disorder, recurrent episode, moderate (HCC); DAVIDE (generalized anxiety disorder) Allergies No known active allergiesdocumented as of this encounter (statuses as of 10/25/2023) Medications Medication Sig Dispensed Refills Start Date End Date Status /Folic Acid Oral Tablet Take 1 Tab by mouth daily. 0 Active Acetaminophen 500 MG Oral Tablet (Tylenol)Indication [...] mouth daily before breakfast. 90 Capsule 0 09/01/2023 Active Omeprazole 20 MG Oral Capsule Delayed Release (PriLOSEC)Indicatio ns:Acute gastritis without hemorrhage, unspecified gastritis type TAKE 1 CAPSULE BY MOUTH ONCE DAILY IN THE MORNING 1 HOUR BEFORE THE FIRST MEAL OF THE DAY 90 Capsule 0 09/04/2023 Active Meloxicam 7.5 MG Oral Tablet (Mobic)Indications: Atypical chest pain,Cervical radiculopathy,Thora cic radiculopathy,Chest pain, unspecified type TAKE 2 TABLETS BY MOUTH IN THE MORNING FOR PAIN 60 Tablet 2 10/03/2023 Active Amphetamine-Dextroa mphet ER 20 MG Oral Capsule Extended Release 24 Hour (Adderall XR) Take 1 Capsule by mouth in the morning. 30 Capsule 0 10/11/2023 Active documented as of this encounter (statuses as of 10/25/2023) Active Problems Problem Noted Date Diagnosed Date Prediabetes 08/25/2022 DAVIDE (generalized anxiety disorder) 06/26/2020 Panic disorder 06/26/2020 Chronic insomnia 06/26/2020 ADHD (attention deficit hype ractivity disorder), combined type 06/26/2020 Chronic constipation 06/26/2020 Migraine variant 06/26/2020 Tobacco abuse 06/26/2020 documented as of this encounter (statuses as of 10/25/2023) Immunizations Name Administration Dates Next Due PPD [...] the money to buy more. Never true 04/08/20 21 Within the past 12 months, t [...] Progress Notes * Nito Jiang CRNP - 10/25/2023 12:10 PM EDT OUTPATIENT BEHAVIORAL HEALTH RETURN VISIT NOTE Psychiatry, Tariq Hernandez [address] [facility] [place] [address] 10/25/2023 Mya Castro Patient Location: HOME. I was not in a hospital or clinic location. Pt unable to connect to video. After connecting through telephone, patient was verified with two unique identifiers. Patient (or authorized legal client service representative) was then informed that this was a Telemedicine visit and being conducted confidentially over secure lines. Methods to assure confidentiality were taken. Patient acknowledged consent and understanding of privacy and security of the Telemedicine visit. The patient agreedto participate. Clinical Tools - DAVIDE-7 | PHQ-9 | AIMS | Sergei Milton Safety Plan :[id number]} Risk Assessment: Completed and No acute safety concerns, denies passive/active suicidal ideation Interval History: Mya is a 48 year old female presenting today for a follow- up appointment. Pt reports she is still settling into her new residence, has less space than her previous residence. "I've been doing ok." Daughter is attending virtual school from home "so I've had some company." Son's s/o is , "so I'm going to be a grandma.. that's pretty exciting, but they're not together anymore.. so my son is going through a lot, it's been affecting me more.. has been bothering me."She has upcoming appointments for dentistry and for a mammogram, intends to have labs drawn soon. "I'm sleeping much better." Medication Side-Effects: denies Patient's last PHQ-9 score (Adult) - 1 and Patient's last DAVIDE-7 score - Substance Abuse History: denies Recent labs/imaging: Relevant [...] symptoms of anxiety, depression. Was living in [place] and moved to [place]. 3 children. 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 Mother passed 8 years ago which has been difficult to cope with. No inpatient, SA, denies substance abuse history. Diagnoses Codes Comments ADHD, inattentive type INFO MDR, moderate DAVIDE Plan: Education provided regarding diagnoses and potential treatment options, both pharmacologic and non-pharmacologic. Regarding medications, Medications by Pharm Class (Includes Only ADHD/Anti-Narcolepsy/Anti-Obesity/Anorexiants, Antidepressants, Antianxiety Agents, Antipsychotics/Antimanic Agents, Anticonvulsant, Hypnotics/Sedatives/Sleep Disorder Agents, Beta Blockers, Antihypertensive) Medication Sig Amphetamine-Dextroamphet ER 20 MG Oral Capsule Extended Release 24 Hour (Adderall XR) Take 1 Capsule by mouth in the morning. QUEtiapine Fumarate 300 MG Oral Tablet (SEROquel) Take 1 Tablet by mouth at bedtime. hydrOXYzine HCl 25 MG Oral Tablet TAKE 1 TABLET BY MOUTH EVERY 6 HOURS NEEDED FOR ANXIETY Continue to encourage outpatient therapy Pt counseled on elevated A1C, longterm risks/benefits of continued Seroquel use with regards [...] with questions. Time Spent on Visit total: 22 minutes - including preparing to see the patient, reviewing history, performing evaluation, counseling/educating patient, ordering medications/tests, documenting clinical information. Nito Jiang, MSN, OUTREACH DIRECTOR, PMHNP- Nurse Practitioner - Outpatient Psychiatry [facility] [place] 10/25/2023 Crisis Planning: Mya Castro has been provided [...] Care Team (Late st Contact Info) Description 10/27/2023 2:30 PM EDT Imaging Radiology [facility] [place] [address] 10/27/2023 3:00 PM EDT Imaging Radiology [facility] [place] [address] 01/24/2024 12:00 PM EDT Telemedicine Psychiatry, [facility] [address] [facility] [place] [address] Nito Jiang CRNP [address] [place] [address] Scheduled Procedures Name Priority Associated Diagnoses Date/Ti [...] disorder documented in this encounter Care Teams Supervisor Quilting Relationship Specialty Start Date End Date Apolinar Rice MD [address] [place] [address] PCP - General Internal Medicine 06/26/20 documented as of this encounter
--- OUTSIDE RECORDS SUMMARY | 2024-02-22 05:48 | External Medical Summary | Summary of Care ---
Author Name Unknown Organization [facility] Address [address] [place] [address] Phone [phone] Care Team Providers Care Manager Of Data Name Role Phone Apolinar Rice MD Primary Care Provider + Reason for Visit * Reason Comments Outpatient Testing Encounter Details Date Type Department Care Team (Late st Contact Info) Description 11/22/2023 1:40 PM EDT Laboratory Laboratory, [facility] [address] [place] [address] [facility] [address] [place] [address] Encounter for long-term (current) use of other medications; [employer] Other*[id number]; Encounter for long-term (current) use of medications Allergies No known active allergiesdocumented as of this encounter (statuses as of 11/22/2023) Medications Medication Sig Dispensed Refills Start Date [...] as of this encounter (statuses as of 11/22/2023) Active Problems Problem Noted Date Diagnosed Date Prediabetes 08/25/2022 DAVIDE (generalized anxiety disorder) 06/26/2020 Panic disorder 06/26/2020 Chronic insomnia 06/26/2020 ADHD (attention deficit hype ractivity disorder), combined type 06/26/2020 Chronic constipation 06/26/2020 Migraine variant 06/26/2020 Tobacco abuse 06/26/2020 documented as of this encounter (statuses as of 11/22/2023) Immunizations Name Administration Dates Next Due PPD [...] on file documented as of this encounter Plan of Treatment Upcoming Encounters Date Type Department Care Team (Late st Contact Info) Description 01/24/2024 12:00 PM EDT Telemedicine [facility] Tariq Hernandez [address] [place] [address] Nito Jiang CRNP [address] [place] [address] Pending Results Name Type Priority Associated Diagnoses Date /Time VITAMIN B12 Lab Routine Encounter for long-term (current) use of other medications 11/22/2023 4:11 PM EDT MAGNESIUM Lab Routine Encounter for long-term (current) use of other medications 11/22/2023 4:11 PM EDT MYCODE SUBSEQUENT ADULT Lab Routine [employer] Other*[id number] 11/22/2023 4:11 PM EDT COMPREHENSIVE METABOLIC PANEL Lab Routine Encounter for long-term (current) use of medications 11/22/2023 4:11 PM EDT HEMOGLOBIN A1C Lab Routine Encounter for long-term (current) use of medications 11/22/2023 4:11 PM EDT LIPID PANEL WITH DIRECT LDL IF TG IS HIGH Lab Routine Encounter for long-term (current) use of medications 11/22/2023 4:11 PM EDT MYCODE SST1 Lab Routine [employer] Other*[id number] 11/22/2023 4:11 PM EDT MYCODE SST2 Lab Routine [employer] Other*[id number] 11/22/2023 4:11 PM EDT Scheduled Procedures Name Priority Associated Diagnoses Date/Ti [...] Not on filedocumented as of this encounter Procedures Procedure Name Priority Date/Time Associated Diagnosis Comments CBC Routine 11/22/2023 4:11 PM EDT Encounter for long-term (current) use of medications documented in this encounter Results * CBC (11/22/2023 4:11 PM EDT) WBC 5.99 4.00 - 10.80 K/uL 11/22/2023 4:19 PM EDT [facility] [place] [facility] RBC 3.78 3.85 - 5.15 M/uL 11/22/2023 4:19 PM EDT [facility] [place] [facility] HGB 12.6 12.0 - 15.3 g/dL 11/22/2023 4:19 PM EDT [facility] [place] [facility] HCT 37.6 36.0 - 45.2 % 11/22/2023 4:19 PM EDT [facility] [place] [facility] MCV 99.5 81.5 - 97.5 fL 11/22/2023 4:19 PM EDT [facility] [place] [facility] MCH 33.3 27.0 - 34.0 pg 11/22/2023 4:19 PM EDT [facility] [place] [facility] MCHC 33.5 32.0 - 36.0 g/dL 11/22/2023 4:19 PM EDT [facility] [place] [facility] RDW 11.8 11.5 - 15.5 % 11/22/2023 4:19 PM EDT [facility] [place] [facility] PLT 223 140 - 400 K/uL 11/22/2023 4:19 PM EDT [facility] [place] [facility] MPV 10.1 6.6 - 11.1 fL 11/22/2023 4:19 PM EDT [facility] [place] [facility] Blood Venous blood specimen / Unknown Venipuncture / Unknown 11/22/2023 4:11 PM EDT 11/22/2023 4:11 PM EDT Chioma Worley [facility] LAB BLOOD ORDERABLES [facility] [place] [facility] [address] [place] [address] documented in this encounter Visit Diagnoses Diagnosis Encounter for long-term (current) use of other medications [employer] Other*[id number] Encounter for long-term (current) use of medications Encounter for long-term (current) use of other medications documented in this encounter Care Teams Manager Of Data Relationship Specialty Start Date End Date Apolinar Rice MD [address] [place] [address] PCP - General Internal Medicine 06/26/20 documented as of this encounter
--- OUTSIDE RECORDS SUMMARY | 2024-02-22 05:48 | External Medical Summary ---
Author Name Unknown Address Unknown Organization K01:LABORATORY [facility] [place] [place] - [address] [facility] [place] [address] Laboratory Report Ordering Provider Test Date Status KING MEDEIROS 11/22/2023 16:11:40 Final Observation Date Value Abnormality Reference (Units ) Status BUN 11/22/2023 16:11:40 11 6-20 (mg/dL) Final Creatinine 11/22/2023 16:11:40 0.9 0.5-1.0 (mg/dL) Final Glomerular filtration rate/1.73 sq M.predicted [Volume Rate/Area] in Serum, Plasma or Blood by Creatinine-based formula (CKD-EPI) 11/22/2023 16:11:40 84 >=60 (mL/min) Final eGFR is calculated based on the CKD-EPI 2020 equation Sodium 11/22/2023 16:11:40 140 135-146 (m mol/L) Final Potassium 11/22/2023 16:11:40 4.1 3.5-5.1 (m mol/L) Final Cl 11/22/2023 16:11:40 105 98-107 (mm ol/L) Final CO2 11/22/2023 16:11:40 26 22-32 (mmo l/L) Final Anion gap 11/22/2023 16:11:40 9 7-15 (mmol /L) Final Glucose 11/22/2023 16:11:40 76 70-120 (mg /dL) Final Albumin 11/22/2023 16:11:40 3.9 3.8-5.0 (g /dL) Final AST (Aspartate aminotransferase) 11/22/2023 16:11:40 24 10-35 (U/L) Fin al Alk Phos 11/22/2023 16:11:40 84 35-130 (U/ L) Final Bilirubin, Total 11/22/2023 16:11:40 0.3 <=1 .2 (mg/dL) Final Calcium 11/22/2023 16:11:40 8.9 8.4-10.2 ( mg/dL) Final Protein 11/22/2023 16:11:40 5.8 Below low normal 6.0 -8.3 (g/dL) Final ALT (Alanine aminotransferase) 11/22/2023 16:11:40 29 10-35 (U/L) Shukri duke Performing Location LABORATORY [facility] [place] [place] - [facility] [address] [facility] [address]
--- OUTSIDE RECORDS SUMMARY | 2024-02-22 05:48 | External Medical Summary | Summary of Care ---
Author Name Unknown Organization [facility] Address [address] [facility] [place] [address] Phone [phone] Care Team Providers Care Hvac Service Tech Name Role Phone Apolinar Rice MD Primary Care Provider + Encounter Details Date Type Department Care Team (Late st Contact Info) Description 10/06/2023 Orders Only PATIENT PORTAL DO NOT DELETE THIS DEPT USED BY [place] [address] Allergies No known active allergiesdocumented as of this encounter (statuses as of 10/06/2023) Medications Medication Sig Dispensed Refills Start Date [...] before breakfast. 90 Capsule 0 09/01/2023 Active Amphetamine-Dextroa mphet ER 20 MG Oral Capsule Extended Release 24 Hour (Adderall XR) Take 1 Capsule by mouth in the morning. 30 Capsule 0 08/31/2023 Active Omeprazole 20 MG Oral Capsule Delayed [...] FOR PAIN 60 Tablet 2 10/03/2023 Active documented as of this encounter (statuses as of 10/06/2023) Active Problems Problem Noted Date Diagnosed Date Prediabetes 08/25/2022 DAVIDE (generalized anxiety disorder) 06/26/2020 Panic disorder 06/26/2020 Chronic insomnia 06/26/2020 ADHD (attention deficit hype ractivity disorder), combined type 06/26/2020 Chronic constipation 06/26/2020 Migraine variant 06/26/2020 Tobacco abuse 06/26/2020 documented as of this encounter (statuses as of 10/06/2023) Immunizations Name Administration Dates Next Due PPD [...] Tariq Hernandez [address] [place] [address] Nito Jiang CRNP [address] [place] [address] Scheduled Procedures Name Priority Associated Diagnoses Date/Ti [...] filedocumented as of this encounter Care Teams Hvac Service Tech Relationship Specialty Start Date End Date Apolinar Rice MD [address] [facility] [place] [address] PCP - General Internal Medicine 06/26/20 documented as of this encounter
--- OUTSIDE RECORDS SUMMARY | 2024-02-22 05:48 | External Medical Summary ---
Author Name Unknown Address Unknown Organization [id number][facility] [address] [place] [address] Laboratory Report Ordering Provider Test Date Status KING MEDEIROS 11/22/2023 16:11:40 Final Observation Date Value Abnormality Reference (Units ) Status WBC, Total 11/22/2023 16:11:40 5.99 4.00-10.8 0 (K/uL) Final RBC 11/22/2023 16:11:40 3.78 3.85-5.15 (M/uL) Final Hemoglobin 11/22/2023 16:11:40 12.6 12.0-15.3 (g/dL) Final HCT 11/22/2023 16:11:40 37.6 36.0-45.2 (%) Final MCV 11/22/2023 16:11:40 99.5 81.5-97.5 (fL) Final MCH 11/22/2023 16:11:40 33.3 27.0-34.0 (pg) Final MCHC 11/22/2023 16:11:40 33.5 32.0-36.0 (g/dL) Final RDW 11/22/2023 16:11:40 11.8 11.5-15.5 (%) Final Platelets 11/22/2023 16:11:40 223 140-400 (K /uL) Final MPV 11/22/2023 16:11:40 10.1 6.6-11.1 ( fL) Final Performing Location LAB[facility]ATORY [facility] [place] [facility] 0 - [address] [place] [address]
--- OUTSIDE RECORDS SUMMARY | 2024-02-22 05:48 | External Medical Summary | Summary of Care ---
Author Name Unknown Organization [facility] Address [address] [facility] [place] [address] Phone [phone] Care Team Providers Care Flight Test Supervisor Name Role Phone Apolinar Rice MD Primary Care Provider + Reason for Visit * - Authorized Specialty Diagnoses / Procedures Referred By Miya gibson Referred To Contact Referral ID Status Reason Start Date Expiration Date V isits Requested Visits Authorized [id number] Authorized 10/18/2023 10/16/[phone] Encounter Details Date Type Department Care Team (Late st Contact Info) Description 10/23/2023 12:30 PM EDT Telemedicine Psychiatry, [facility] [address] [place] [address] Nito Jiang CRNP [address] [facility] [place] [address] No Show for psych appt* Allergies No known active allergiesdocumented as of this encounter (statuses as of 10/23/2023) Medications Medication Sig Dispensed Refills Start Date [...] as of this encounter (statuses as of 10/23/2023) Active Problems Problem Noted Date Diagnosed Date Prediabetes 08/25/2022 DAVIDE (generalized anxiety disorder) 06/26/2020 Panic disorder 06/26/2020 Chronic insomnia 06/26/2020 ADHD (attention deficit hype ractivity disorder), combined type 06/26/2020 Chronic constipation 06/26/2020 Migraine variant 06/26/2020 Tobacco abuse 06/26/2020 documented as of this encounter (statuses as of 10/23/2023) Immunizations Name Administration Dates Next Due PPD [...] Progress Notes * Nito Jiang CRNP - 10/23/2023 12:45 PM EDT Patient failed to keep appointment. documented in this encounter Plan of Treatment Scheduled Procedures Name Priority Associated Diagnoses Date/Ti [...] as of this encounter Visit Diagnoses Diagnosis No Show for psych appt- Primary documented in this encounter Care Teams Flight Test Supervisor Relationship Specialty Start Date End Date Apolinar Rice MD [address] [place] [address] PCP - General Internal Medicine 06/26/20 documented as of this encounter
--- OUTSIDE RECORDS SUMMARY | 2024-02-22 05:48 | External Medical Summary | Summary of Care ---
Author Name Unknown Organization [facility] Address [address] [facility] [place] [address] Phone [phone] Care Team Providers Care Relay Shop Tester Name Role Phone Apolinar Martin MD Primary Care Provider + Reason for Visit * Reason Onset Date Comments Medication Refill 08/30/2023 Encounter Details Date Type Department Care Team (Late st Contact Info) Description 08/30/2023 Telephone General Internal Medicine [facility] [address] [place] [address] Apolinar Martin MD [address] [place] [address] Medication Refill Allergies No known active allergiesdocumented as of this encounter (statuses as of 10/05/2023) Medications Medication Sig Dispensed Refills Start Date [...] on 12/30/2022 Famotidine 20 MG Oral Tablet (Pepcid)Indicati ons:Greater [...] 90 Capsule 1 3 09/04/19 24 Discontinued Meloxicam 7.5 MG Oral Tablet (Mobic)Indicatio ns:Atypical chest pain,Cervical radiculopathy,Th oracic radiculopathy,Ch est pain, unspecified type TAKE 2 TABLETS BY MOUTH IN THE MORNING FOR PAIN 60 Tablet 5 3 10/03/19 24 Discontinued Linzess 290 MCG Oral Capsule (linaCLOtide)Ind ications:Chronic constipation Take 1 Capsule by mouth daily before breakfast. 90 Capsule 0 3 08/30/19 24 Discontinued(Ref ill) documented as of this encounter (statuses as of 10/05/2023) Active Problems Problem Noted Date Diagnosed Date Prediabetes 08/25/2022 DAVIDE (generalized anxiety disorder) 06/26/2020 Panic disorder 06/26/2020 Chronic insomnia 06/26/2020 ADHD (attention deficit hype ractivity disorder), combined type 06/26/2020 Chronic constipation 06/26/2020 Migraine variant 06/26/2020 Tobacco abuse 06/26/2020 documented as of this encounter (statuses as of 10/05/2023) Immunizations Name Administration Dates Next Due PPD [...] encounter Miscellaneous Notes * Telephone Encounter - Norma Ryder OSA - 10/05/2023 12:23 PM EDT Pt will call to schedule at Later date. * Telephone Encounter - Tiara Whelan OSA [...] Info) Description 10/23/2023 12:30 PM EDT [facility] [address] [place] [address] Nito Jiang CRNP [address] [place] [address] Scheduled Procedures Name Priority Associated Diagnoses Date/Ti [...] constipation documented in this encounter Care Teams Relay Shop Tester Relationship Specialty Start Date End Date Apolinar Martin MD [address] [place] [place] [address] PCP - General Internal Medicine 06/26/20 documented as of this encounter
--- OUTSIDE RECORDS SUMMARY | 2024-02-22 05:48 | External Medical Summary | Summary of Care ---
Author Name Unknown Organization [facility] Address [address] [facility] [place] [address] Phone [phone] Care Team Providers Care Child Care Team Lead Name Role Phone Apolinar Rice MD Primary Care Provider + Reason for Visit * Reason Onset Date Comments Medication Refill 10/09/2023 Encounter Details Date Type Department Care Team (Late st Contact Info) Description 10/09/2023 Refill PsychiatryTariq Hernandez [address] [place] [address] Uriel Jiang CRNP [address] [place] [address] Allergies No known active allergiesdocumented as of this encounter (statuses as of 10/11/2023) Medications Medication Sig Dispensed Refills Start Date [...] on 12/30/2022 Famotidine 20 MG Oral Tablet (Pepcid)Indication s:Greater [...] 07/24/2023 Active Linzess 290 MCG Oral Capsule (linaCLOtide)Indic [...] 09/04/2023 Active Meloxicam 7.5 MG Oral Tablet (Mobic)Indications :Atypical chest pain,Cervical radiculopathy,Thor acic radiculopathy,Ches t pain, unspecified type TAKE 2 TABLETS BY MOUTH IN THE MORNING FOR PAIN 60 Tablet 2 10/03/2023 Active Amphetamine-Dextro amphet ER 20 MG Oral Capsule Extended Release 24 Hour (Adderall XR) Take 1 Capsule by mouth in the morning. 30 Capsule 0 10/11/2023 Active Amphetamine-Dextro amphet ER 20 MG Oral Capsule Extended Release 24 Hour (Adderall XR) Take 1 Capsule by mouth in the morning. 30 Capsule 0 08/31/2023 04/22/202 4 Discontinue d(Refill) documented as of this encounter (statuses as of 10/11/2023) Active Problems Problem Noted Date Diagnosed Date Prediabetes 08/25/2022 DAVIDE (generalized anxiety disorder) 06/26/2020 Panic disorder 06/26/2020 Chronic insomnia 06/26/2020 ADHD (attention deficit hype ractivity disorder), combined type 06/26/2020 Chronic constipation 06/26/2020 Migraine variant 06/26/2020 Tobacco abuse 06/26/2020 documented as of this encounter (statuses as of 10/11/2023) Immunizations Name Administration Dates Next Due PPD [...] Telephone Encounter - Uriel Jiang CRNP - 10/11/2023 4:38 PM EDTSigned Prescriptions: Disp Refills Amphetamine-Dextroamphet ER 20 MG Oral Cap*30 Cap*0 Sig: Take 1 Capsule by mouth in the morning. Authorizing Provider: URIEL JIANG * Telephone Encounter - Aurelia Saleh MED ASSIST - 10/10/2023 9:12 AM EDT Pending Prescriptions: Disp Refills Amphetamine-Dextroamphet ER 20 MG Oral Cap*30 Cap*0 Sig: Take 1 Capsule by mouth in the morning. * Telephone Encounter - Aurelia Saleh MED ASSIST - 10/10/2023 9:12 AM EDT Refill request from patient (Jhonny) for Adderall XR 20mg. Medication last filled on 08/31/23 with 0 refills. Patient last seen on 07/24/23 with return appointment scheduled for 10/23/23. Patient had 0 cancelled appointments and 0 NO SHOW appointments. documented in this encounter Plan of Treatment Upcoming Encounters Date Type Department Care Team (Brendan st Contact Info) Description 10/23/2023 12:30 PM EDT Telemedicine Psychiatry, Tariq Hernandez [address] [place] [address] Uriel Jiang CRNP [address] [place] [address] Scheduled Procedures Name Priority Associated Diagnoses Date/Ti [...] filedocumented as of this encounter Care Teams Child Care Team Lead Relationship Specialty Start Date End Date Apolinar Rice MD [address] [facility] [place] [address] PCP - General Internal Medicine 06/26/20 documented as of this encounter
--- OUTSIDE RECORDS SUMMARY | 2024-02-22 05:48 | External Medical Summary ---
Author Name Unknown Address Unknown Organization K01:[facility] [place] - [address] [facility] [address] Laboratory Report Ordering Provider Test Date Status KING MEDEIROS 11/22/2023 16:11:40 Final Observation Date Value Abnormality Reference (Units ) Status HbA1C 11/22/2023 16:11:40 5.8 Above high normal 4. 0-5.6 (%) Final The use of HbA1c to monitor glycemic status is based on normal hemoglobin and HbA composition. This test should not be used in patients with abnormal hemoglobin that affects the half life of the red blood cell or the in vivo glycation rates. Glucose, estimated average 11/22/2023 16:11:40 120 <126 (mg/dL) Final Performing Location [facility] [place] - [address] [facility] [address]
--- OUTSIDE RECORDS SUMMARY | 2024-02-22 05:48 | External Medical Summary | Summary of Care ---
Author Name Unknown Organization [facility] Address [address] [place] [address] Phone [phone] Care Team Providers Care Securities Analyst Name Role Phone Apolinar Rice MD Primary Care Provider + Encounter Details Date Type Department Care Team (Late st Contact Info) Description 09/25/2023 Orders Only Outcomes Research Department [address] [place] [address] Carmen Dunbar CHRA [facility] Other*[id number] Allergies No known active allergiesdocumented as of [...] on 12/30/2022 Meloxicam 7.5 MG Oral Tablet (Mobic)Indications: Atypical chest pain,Cervical radiculopathy,Thora cic radiculopathy,Chest pain, unspecified type TAKE 2 TABLETS BY MOUTH IN THE MORNING FOR PAIN 60 Tablet 5 12/23/2022 Active Famotidine 20 MG Oral Tablet (Pepcid)Indications [...] THE DAY 90 Capsule 0 09/04/2023 Active documented as of this encounter (statuses [...] Tariq Hernandez [address] [place] [address] Nito Jiang CRNP [address] [place] [address] Scheduled Orders Name Type Priority Associated Diagnoses Orde r Schedule MYCODE SUBSEQUENT ADULT Lab Routine [facility] Other*[id number] Every 6 Months for 2 Occurrences starting 09/25/2023 until 10/14/2024 Scheduled Procedures Name Priority Associated Diagnoses Date/Ti [...] as of this encounter Visit Diagnoses Diagnosis [facility] Other*[id number] documented in this encounter Care Teams Securities Analyst Relationship Specialty Start Date End Date Apolinar Rice MD [address] [place] [address] PCP - General Internal Medicine 06/26/20 documented as of this encounter
--- OUTSIDE RECORDS SUMMARY | 2024-02-22 05:48 | External Medical Summary ---
Author Name Unknown Address Unknown Organization K01:[facility] [place] - [address] [facility] [address] Laboratory Report Ordering Provider Test Date Status KING MEDEIROS 11/22/2023 16:11:40 Final Observation Date Value Abnormality Reference (Units ) Status Triglyceride 11/22/2023 16:11:40 177 Above high normal <=174 (mg/dL) Final Triglyceride Reference Range s (mg/dL):
<150 Acceptable
150-174 Borderline high
175-499 High
>=500 Very high Cholesterol 11/22/2023 16:11:40 159 <200 (mg /dL) Final Total Cholesterol Reference Ranges (mg/dL):
<200 Desirable
200-239 Borderline high
>=240 High HDL 11/22/2023 16:11:40 43 Below low normal >49 (mg/dL) Final HDL Cholesterol Reference Ra nges (mg/dL):
>=60 High (Desirable)
<50 Low (Undesirable) For Females
<40 Low (Undesirable) For Males NON-HDL CHOLESTEROL 11/22/2023 16:11:40 116 <=159 (mg/dL) Final Non-HDL Cholesterol Referenc e Range (mg/dL):
<100 Target level for high risk ASCVD patient
<130 Optimal for general population
130-159 Near optimal for general population
160-189 Borderline High
190-219 High
>=220 Very High LDL, (calculated) 11/22/2023 16:11:40 81 <= 129 (mg/dL) Final LDL Cholesterol Reference Ra nges (mg/dL):
<70 Target level for high risk ASCVD patient
<100 Optimal for general population
100-129 Near optimal for general population
130-159 Borderline high
160-189 High
>=190 Very high Performing Location [facility] [place] - [address] [facility] [address]
--- OUTSIDE RECORDS SUMMARY | 2024-02-22 05:48 | External Medical Summary | Summary of Care ---
Author Name Unknown Organization [facility] Address [address] [place] [address] Phone [phone] Care Team Providers Care Universal Winding Machine Operator Name Role Phone Apolinar Martin MD Primary Care Provider + Reason for Visit * Reason Onset Date Comments Medication Refill 12/19/2023 Encounter Details Date Type Department Care Team (Late st Contact Info) Description 12/19/2023 Refill General Internal Medicine [facility] [address] [place] [address] Apolinar Martin MD [address] [place] [address] Cold sore; Chronic constipation; Acute gastritis without hemorrhage, unspecified gastritis type Allergies No known active allergiesdocumented as of this encounter (statuses as of 12/20/2023) Medications Medication Sig Dispensed Refills Start Date [...] for cold sores. 12 Tablet 12/20/2023 Active valACYclovir HCl 1 GM Oral Tablet (Valtrex)Indicatio ns:Cold sore Take 2 Tablets by mouth in the morning and 2 Tablets before bedtime. For 1 day for cold sores. 4 Tablet 11 12/19/2022 Discontinue d(Refill) documented as of this encounter (statuses as of 12/20/2023) Active Problems Problem Noted Date Diagnosed Date Prediabetes 08/25/2022 DAVIDE (generalized anxiety disorder) 06/26/2020 Panic disorder 06/26/2020 Chronic insomnia 06/26/2020 ADHD (attention deficit hype ractivity disorder), combined type 06/26/2020 Chronic constipation 06/26/2020 Migraine variant 06/26/2020 Tobacco abuse 06/26/2020 documented as of this encounter (statuses as of 12/20/2023) Immunizations Name Administration Dates Next Due PPD [...] Miscellaneous Notes * Telephone Encounter - Jose L Tarango, [facility] - 12/20/2023 8:01 AM EDTSigned Prescriptions: Disp Refills valACYclovir HCl 1 GM Oral Tablet (Valtrex)12 Tab*0 Sig: Take 2 Tablets by mouth in the morning and 2 Tablets before bedtime. For 1 day for cold sores.Authorizing Provider: APOLINAR MARTIN User: JOSE L BARCENASsed Prescriptions: Disp Refills Linzess 290 MCG Oral Capsule (linaCLOtide) 90 Cap*0 Sig: Take 1 Capsule bymouth daily before breakfast.Refused By: JOSE L BARCENAS for Refusal: Too soonReason for Refusal Comment: pt advised Omeprazole 20 MG Oral Capsule Delayed Rele*90 Cap*0 Sig: TAKE 1 CAPSULE BYMOUTH ONCE DAILY IN THE MORNING 1 HOUR BEFORE THE FIRST MEAL OF THE DAYRefused By: JOSE L BARCENAS for Refusal: Too soonReason for Refusal Comment: pt advised * Telephone Encounter - Jose L Tarango, [facility] - 12/20/2023 7:55 AM EDT Pending Prescriptions: Disp Refills valACYclovir HCl 1 GM Oral Tablet (Valtre*4 Tabl*11 Sig: Take 2 Tablets by mouth in the morning and 2 Tablets before bedtime. For 1 day for cold sores. Linzess 290 MCG Oral Capsule (linaCLOtide)90 Cap*0 Sig: Take 1 Capsule by mouth daily before breakfast. Omeprazole 20 MG Oral Capsule Delayed Rel*90 Cap*0 Sig: TAKE 1 CAPSULE BY MOUTH ONCE DAILY IN THE MORNING 1 HOUR BEFORE THE FIRST MEAL OF THE DAY Last Visit: 08/24/2022 (in office), 06/30/2021 (telemedicine) Next Visit: Visit date not found If no future appointments scheduled, and last appointment is greater than a year ago, please schedule patient for a follow-up appointment Last date the medication was ordered: 11/29/23 [facility] [address] [address] [place] [place] Is this request for a controlled substance? No Urine Drug Screen:No results found for this or any previous visit. Patient Phone Numbers Labs: Lab Results Component [...] PM HGBA1C 5.8 (H) 11/22/2023 04:11 PM documented in this encounter Plan of Treatment Upcoming Encounters Date Type Department Care Team (Late st Contact Info) Description 01/24/2024 12:00 PM EDT Telemedicine Psychiatry, Tariq Hernandez [address] [place] [address] Nito Jiang CRNP [address] [place] [address] Scheduled Procedures Name Priority Associated Diagnoses Date/Ti [...] sore Herpes simplex without mention of complication Chronic constipation Unspecified constipation Acute gastritis without hemorrhage, unspecified gastritis type documented in this encounter Care Teams Universal Winding Machine Operator Relationship Specialty Start Date End Date Apolinar Martin MD [address] [place] [address] PCP - General Internal Medicine 06/26/20 documented as of this encounter
--- OUTSIDE RECORDS SUMMARY | 2024-02-22 05:48 | External Medical Summary ---
Author Name Unknown Address Unknown Organization K01:[facility] [place] [address] [place] [address] Laboratory Report Ordering Provider Test Date Status RITA NUNEZ 11/22/2023 16:11:40 Final Observation Date Value Abnormality Reference (Units ) Status MYCODE SPECIMEN-SST 11/22/2023 16:11:40 Freezing of extracted DNA, whole blood and/or serum. Final Performing Location LABORATORY [facility] - [address] [place] [address]
--- OUTSIDE RECORDS SUMMARY | 2024-02-22 05:48 | External Medical Summary | Summary of Care ---
Author Name Unknown Organization [facility] Address [address] [place] [address] Phone [phone] Care Team Providers Care Timber Faller Name Role Phone Apolinar Martin MD Primary Care Provider + Reason for Visit * Reason Comments eRx-Medication Refill Encounter Details Date Type Department Care Team (Late st Contact Info) Description 10/01/2023 Refill General Internal Medicine [facility] [address] [facility] [place] [address] Apolinar Martin MD [address] [place] [address] Encounter for long-term (current) use of medications*; Atypical chest pain; Cervical radiculopathy; Thoracic radiculopathy; Chest pain, unspecified type Allergies No known active allergiesdocumented as of this encounter (statuses as of 10/06/2023) Medications Medication Sig Dispensed Refills Start Date End Date Status /Folic Acid Oral Tablet Take 1 Tab by mouth daily. 0 Active Acetaminophen 500 MG Oral Tablet (Tylenol)Indicati [...] on 12/30/2022 Famotidine 20 MG Oral Tablet (Pepcid)Indicatio ns:Greater trochanteric pain syndrome of right lower extremity,Pain of right thigh,Chronic pain of right knee,Lumbar degenerative disc disease Take 1 Tablet by mouth in the morning and 1 Tablet before bedtime. 60 Tablet 5 12/23/2022 Active predniSONE 20 MG Oral Tablet (Deltasone)Indica tions:Costochondr itis, acute Take 3 tabs for 3 days, 2 tabs for 3 days, 1 tab for 3 days, 1/2 tab for 3 days 20 Tablet 0 01/16/2023 Active hydrOXYzine HCl 25 MG Oral TabletIndications [...] 07/24/2023 Active Linzess 290 MCG Oral Capsule (linaCLOtide)Kylee cations:Chronic constipation Take 1 Capsule by mouth daily before breakfast. 90 Capsule 0 09/01/2023 Active Amphetamine-Dextr oamphet ER 20 MG Oral [...] 09/04/2023 Active Meloxicam 7.5 MG Oral Tablet (Mobic)Indication s:Atypical chest pain,Cervical radiculopathy,Tho racic radiculopathy,Lisa st pain, unspecified type TAKE 2 TABLETS BY MOUTH IN THE MORNING FOR PAIN 60 Tablet 2 10/03/2023 Active Meloxicam 7.5 MG Oral Tablet (Mobic)Indication s:Atypical chest pain,Cervical radiculopathy,Tho racic radiculopathy,Lisa st pain, unspecified type TAKE 2 TABLETS BY MOUTH IN THE MORNING FOR PAIN 60 Tablet 5 12/23/2022 10/03/19 24 Discontinued documented as of this encounter [...] encounter Miscellaneous Notes * Telephone Encounter - Amaris Payton PHARM Tech - 10/06/2023 8:13 AM EDT Received message from [facility] regarding patient needing appointment and labs. Call Placed, Left messageon voicemail advising of required labs and to call back for an appointment. Thank you for your assistance Amaris Payton Financial Engineer II [facility] ([facility] (Formerly Telepharmacy) 10/06/2023,8:13 AM * Telephone Encounter - Chioma Worley [facility] - 10/03/2023 8:51 AM EDTSigned Prescriptions: Disp Refills Meloxicam 7.5 MG Oral Tablet (Mobic) 60 Tab*2 Sig: TAKE 2 TABLETS BY MOUTH IN THE MORNING FOR PAIN Authorizing Provider: APOLINAR MARTIN Ordering User: CHIOMA WORLEY * Telephone Encounter - Chioma Worley [facility] - 10/03/2023 8:50 AM EDT Provided 30 days supply with 2 refill. Per refill protocol patient should have routine labs on filewithin past year. Reviewed AMP report, Care Gaps/Health Maintenance, medications list, and for any routine labs typically ordered for this patient. Lab orders placed. Please contact patient to schedule office visit with PRIMARY CARE and advise of labs ordered for blood draw.. Recommend patient to fast if able for labs. Patient may still have water and regular medications. Advise to obtain labs before requesting the next refill. Last Visit: 08/24/2022 (in office), 06/30/2021 (telemedicine) Next Visit: Visit date not found Chioma Perez Clinical Pharmacist [facility] ([facility]) (Formerly Telepharmacy) [phone] 10/03/2023, 8:50 AM documented in this encounter Plan of Treatment Upcoming Encounters Date Type Department Care Team (Late st Contact Info) Description 10/23/2023 12:30 PM EDT Telemedicine Tariq Nieves Hernandez [address] [place] [address] Nito Jiang CRNP [address] [place] [address] Scheduled Orders Name Type Priority Associated Diagnoses Orde r Schedule CBC Lab Routine Encounter for long-term (current) use of medications Expected: 10/10/2023 (Approximate), Expires: 10/02/2024 COMPREHENSIVE METABOLIC PANEL Lab Routine Encounter for long-term (current) use of medications Expected: 10/10/2023 (Approximate), Expires: 10/02/2024 HEMOGLOBIN A1C Lab Routine Encounter for long-term (current) use of medications Expected: 10/10/2023 (Approximate), Expires: 10/02/2024 LIPID PANEL WITH DIRECT LDL IF TG IS HIGH Lab Routine Encounter for long-term (current) use of medications Expected: 10/10/2023 (Approximate), Expires: 10/02/2024 Scheduled Procedures Name Priority Associated Diagnoses Date/Ti [...] as of this encounter Visit Diagnoses Diagnosis Encounter for long-term (current) use of medications- Primary Encounter for long-term (current) use of other medications Atypical chest pain Other chest pain Cervical radiculopathy Brachial neuritis or radiculitis nos Thoracic radiculopathy Thoracic or lumbosacral neuritis or radiculitis, unspecified Chest pain, unspecified type documented in this encounter Care Teams Timber Faller Relationship Specialty Start Date End Date Apolinar Martin MD [address] [place] [address] PCP - General Internal Medicine 06/26/20 documented as of this encounter
[2024-02-22 06:18] LABS: Hematocrit (blood only) 33.7 % (37.0-47.0); Hemoglobin 11.5 g/dl (12.0-16.0); Mean Corpuscular Hemoglobin 32.8 pg (25.0-34.0); Mean Corpuscular Hgb Conc 34.1 g/dL (32.0-36.0); Mean Platelet Volume 10.3 fL (9.4-12.4); Platelet Count 243 K/uL (130-400); RDW Coefficient of Variation 11.7 % (11.5-14.5); RDW Standard Deviation 40.6 fL (36.4-46.3); Red Blood Count 3.51 M/uL (4.20-5.40); White Blood Count 6.01 K/ul (4.8-10.8)
[2024-02-22 06:32] LABS: BUN Creatinine Ratio 32.8 (10-20); C Reactive Protein 0.61 mg/dl (0-0.5); Calcium 8.6 mg/dl (8.6-10.3); Chol HDL Ratio 3.6 (0-5); Creatinine Clr Calc Pharmacy 119.8 ml/min; Est GFR (African American) 120.6 ml/min; Est GFR (Non-African American) 104.1 ml/min; Potassium 3.6 mmol/L (3.5-5.1)
[2024-02-22 06:48] LABS: Basophils # (auto) 0.03 K/uL (0.00-0.20); Basophils % (auto) 0.5 %; Eosinophils # (auto) 0.15 K/uL (0.00-0.50); Eosinophils % (auto) 2.5 %; Immature Granulocytes # (auto) 0.01 K/uL (0.01-0.20); Immature Granulocytes % (auto) 0.2 %; Lymphocytes # (auto) 3.08 K/uL (1.20-3.40); Lymphocytes % (auto) 51.2 %; Monocytes # (auto) 0.42 K/uL (0.11-0.59); Neutrophils # (auto) 2.32 K/uL (1.40-6.50); Neutrophils % (auto) 38.6 %
--- NOTE | 2024-02-22 07:04 | XRay Report ---
XR chest 1V portable CLINICAL HISTORY: cp TECHNIQUE: Single frontal radiograph of the chest was obtained. Comparison: Comparison is made to chest radiograph 04/13/2022 FINDINGS: Exam is limited by underpenetration. The cardiomediastinal silhouette is normal. The lungs are clear. No evidence of pleural effusion or pneumothorax. IMPRESSION: No acute chest disease. ACT 112: Negative or not required by law. Electronically signed by: Jama Flores M.D. 02/22/2024 7:02 AM
[2024-02-22 07:43] VITALS: TEMP 98.1; O2SAT 98
[2024-02-22 07:46] LABS: Estimated Average Glucose 117 mg/dl; Hemoglobin A1C 5.7 % (4.5-5.6)
[2024-02-22] MEDS: lisinopril 10 MG TAB PO SCH (08:24)
[2024-02-22] MEDS: ENOXAPARIN INJ 40 MG/0.4 ML SYR SQ SCH (08:25)
[2024-02-22] MEDS: ASPIRIN 81 MG ECTAB PO SCH (08:25)
[2024-02-22] MEDS: DEXTROAMPHETAMINE/AMPHETAMINE ER 10 MG CAP PO SCH (08:26)
[2024-02-22] MEDS ORDERED: ARTIFICIAL TEARS OP OINT 3.5 GM TUBE OP PRN (09:11)
[2024-02-22] MEDS ORDERED: STROKE PATIENT DISCHARGE STA (09:16)
--- NOTE | 2024-02-22 09:22 | Discharge Summary ---
Discharge Summary Date of Service February 22, 2024 Principal Dx & Hospital Course #1 = Principal Diagnosis (1) Left-sided Cabral's palsy: (2) Hypertension, uncontrolled: (3) Hypokalemia: (4) ADHD: (5) Anxiety: (6) Tension headache, chronic: (7) Prediabetes: Plan Patient 49-year-old female presented emergency room with acute left facial droop and paresthesias along with uncontrolled hypertension. Patient was admitted to the hospital. Her blood pressure improved with minimal interventions. MRI of the brain was negative for acute stroke or ischemic event. No tumor was identified on MRI as well. Follow-up exam patient had classic Cabral's palsy exam. She ruled out for acute stroke/TIA. Patient was started on Valtrex and prednisone. Lisinopril was started for blood pressure control. Rest of her vital signs were stabilized. Her potassium was replaced. Other laboratory studies are stabilized. was updated patient's condition. Cabral's palsy was explained to the patient. She will complete a 7-day course of the Valtrex and prednisone. Also given instructions to keep the left eye well-lubricated and to tape her eye shut at night. And she can follow-up with her outpatient providers and be discharged home. Notes For Next Care Provider Continue to monitor blood pressure and need for any additional interventions. May need referral if patient does not respond to initial treatment for Cabral's palsy. Hemoglobin A1c 5.7%, continue to monitor prediabetes and evaluate for early intervention Medication Changes From Visit Lisinopril started for blood pressure Valtrex for Cabral's palsy Prednisone for Cabral's palsy Admission HPI Per Admitting Provider Patient is 49-year-old female with PMH ADHD, anxiety, depression, insomnia, migraine, pre-diabetes presented to ER with c/o facial numbness. History obtained from patient and outpatient chart review. Patient states today had some discomfort posterior shoulder that radiated to left neck. She thought it was muscular and took Tylenol and applied Biofreeze. She states she felt like those things helped decrease the left shoulder and neck discomfort and then she took a nap. She reports when her daughter got home she felt that her left side of her mouth appeared droopy. When patient looked in the mirror she felt that the right side of her mouth appeared droopy. She noted "weird" sensation to right side of face which she reports is difficult to describe however feels like has some decreased sensation and possibly some tingling sensation. She reports that she is unable to close her left eye and her left eye is tearing. Also reports intermittent twitching of her left eyelid. She feels that her right eyelid is more droopy. Feels like having some discomfort to lower occipital region of head now. Denies any difficulty swallowing. She feels she is having trouble raising her eyebrows. Denies any noted speech changes. Denies extremity weakness or paresthesias. Patient denies any increased stress and feels her moods are baseline. She reports takes Seroquel for insomnia and denies any recent dosage changes. Typically on Adderall for ADHD however has had difficulty obtaining from pharmacy so was switched to Vyvanse but now reports is back to taking Adderall. Patient reports prior history of migraines headaches which would present with generalized headache with photophobia and phonophobia. Patient states symptoms today do not feel like her typical m igraine. Denies any injury, fall. Denies fever/chills, diaphoresis, N/V/D/C, dizziness, syncope, vision changes, neck pain, CP, SOB, palpitations, cough, sore throat, choking, otalgia, rhinorrhea, abdominal pain, extremity edema, rashes, urinary symptoms. Denies cosmetic procedures or injections to face. Admission Exam Per Admitting Provider See H&P Discharge Exam Constitutional: Alert HEENT: Mucous membranes moist. Left eyelid slow to close and does not close co mpletely or tightly Lungs: Clear to auscultation, decreased, no wheezes rales or rhonchi CV: S1-S2, regular Abdomen: Soft, nontender, nondistended Extremities: No significant edema Neuro: Left facial droop Psych: Cooperative, normal mood Updated Medication List Medication Instructions Recorded Confirmed Type sumatriptan succinate 50 mg tablet 50 mg PO DIRECTED PRN Migraine 06/15/21 02/21/24 History Headache acetaminophen 500 mg tablet 1,000 mg PO Q8H PRN Pain 12/14/21 02/21/24 History dextroamphetamine-amphetamine ER 20 mg PO QAM 12/18/23 02/21/24 History 20 mg 24hr capsule,extend release famotidine 20 mg tablet 20 mg PO BID PRN Heartburn 12/18/23 02/21/24 History hydroxyzine HCl 25 mg tablet 25 mg PO Q6H PRN Anxiety 12/18/23 02/21/24 History meloxicam 7.5 mg tablet 7.5 mg PO QAM 12/18/23 02/21/24 History omeprazole 20 mg capsule,delayed 20 mg PO DAILYBB PRN Heartburn 12/18/23 02/21/24 History release quetiapine 300 mg tablet 300 mg PO HS 12/18/23 02/21/24 History polyethylene glycol 3350 17 17 g PO DAILY PRN Constipation 02/21/24 02/21/24 History gram/dose oral powder Artificial Tears [Lacri-Lube] 1 applic ophthalmic (eye) Q2H PRN 02/22/24 Rx dry eye(s) #1 tube lisinopril 10 mg tablet 10 mg PO QAM 30 days #30 tabs 02/22/24 Rx prednisone 20 mg tablet 60 mg (3 x 20 mg) PO DAILY 6 days 02/22/24 Rx #18 tabs valacyclovir 500 mg tablet 1,000 mg (2 x 500 mg) PO TID 7 02/22/24 Rx days #42 tabs Hospital Stay Data Consultations 02/21/24 20:33 ED Decision to Admit Stat Diagnostic Imagining Performed 02/21/24 19:07 CT angio head w con Stat CT angio neck with con Stat CT head/brain wo con Stat 02/21/24 22:20 MR brain wo/w con Stat Reviewed imaging, laboratory and diagnostic studies. Pertinent findings as below. MRI of the brain negative for acute ischemia Potassium 3.6 Hemoglobin A1c 5.7% Lyme screen negative Pending Results Patient Have Any Pending Studies at Discharge: No Discharge Instructions Given to Patient (Per Discharging Provider) Use Lacri-Lube every couple hours during the day as needed to keep eye moist. Place Lacri-Lube in eye and tape eye shut at night Strongly recommend you stop vaping Your blood glucose was slightly elevated indicating prediabetes. Discussed with your PCP monitoring of your blood glucose and any interventions Total Time Total Time Spent Total Time Spent (In Minutes): 43
[2024-02-22 10:11] VITALS: BP 125/85; PULSE 82
[2024-02-22] MEDS: predniSONE 20 MG TAB PO SCH (10:16)
[2024-02-22] MEDS: valACYclovir HCL 500 MG TABLET PO SCH (10:17)
[2024-02-22] MEDS: ACETAMINOPHEN 325 MG TAB PO PRN (10:19)
--- NOTE | 2024-02-22 10:53 | Electrocardiogram Report ---
Test Reason : Blood Pressure : */* mmHG Vent. Rate : 94 BPM Atrial Rate : 94 BPM P-R Int : 136 ms QRS Dur : 80 ms QT Int : 352 ms P-R-T Axes : 12 29 42 degrees QTcB Int : 440 ms Sinus rhythm with occasional Premature ventricular complexes Low voltage QRS Borderline ECG When compared with ECG of 10-Jan-2023 21:37, Premature ventricular complexes are now Present Confirmed by Abran العلي ([id number]) on 02/22/2024 10:52:46 AM Referred By: REFERRED SELF Confirmed By: Abran العلي
--- OUTSIDE RECORDS SUMMARY | 2024-02-22 15:16 | External Medical Summary | Summary of Care ---
Author Name Unknown Organization [facility] Address [address] [place] [address] Phone [phone] Care Team Providers Care Food And Beverage Associate Name Role Phone Apolinar Rice MD Primary Care Provider + Reason for Visit * Reason Onset Date Comments Precert Approved 02/16/2024 Lisdexamfetamin e Dimesylate 40MG capsules Encounter Details Date Type Department Care Team (Late st Contact Info) Description 02/16/2024 Telephone Tariq Nieves [address] [place] [id number] Nito Jiang CRNP [address] [facility] [place] [address] Precert Approved (Lisdexamfetamine Dimesyl... Allergies Active Allergy Reactions Criticality Noted Date Comments Ketorolac High 01/07/2022 Other Reaction(s): Hives documented as of this encounter (statuses as of 02/22/2024) Medications Medication Sig Dispensed Refills Start Date [...] as of this encounter (statuses as of 02/22/2024) Active Problems Problem Noted Date Diagnosed Date Prediabetes 08/25/2022 DAVIDE (generalized anxiety disorder) 06/26/2020 Panic disorder 06/26/2020 Chronic insomnia 06/26/2020 ADHD (attention deficit hype ractivity disorder), combined type 06/26/2020 Chronic constipation 06/26/2020 Migraine variant 06/26/2020 Tobacco abuse 06/26/2020 documented as of this encounter (statuses as of 02/22/2024) Immunizations Name Administration Dates Next Due PPD [...] encounter Miscellaneous Notes * Telephone Encounter - Janie Buckley LPN - 02/22/2024 9:48 AM EDT Images from the original note were not included. * Telephone Encounter - Lizeth Castelan OSA - 02/20/2024 2:12 PM EDT [facility] Authorization Submission Submission Information: Medication: Lisdexamfetamine Dimesylate 40MG capsules Portal used: [facility] Author[facility] #/[place]: [id number] Lizeth Castelan [facility] 02/20/24,2:12 PM * Telephone Encounter - Kenzie [...] PM EDT Office Visit General Internal Medicine [facility] [place] [address] [facility] [place] [address] Apolinar Rice MD [address] [place] [address] Scheduled Procedures Name Priority Associated Diagnoses Date/Ti [...] of 2) 01/10/2024 COVID-19 Vaccine (2 - 2022- season) 2024 04/01/2022 Influenza Vaccine (FLU shot) [...] filedocumented as of this encounter Care Teams Food And Beverage Associate Relationship Specialty Start Date End Date Apolinar Rice MD [address] [facility] [place] [address] PCP - General Internal Medicine 06/26/20 documented as of this encounter
== END 2024-02-22 13:05 | disposition home or self-care (01) ==
LOC: ED 18:23 → 2N 18:23 → SUATTDRO 22:19 → 2N 23:49